=== PATIENT | male | born 1960 | race African-American/Black ===

== ENCOUNTER 2018-05-18 13:55 | Emergency (ER) | payer OTHER ==
[~2018-05-18] VITALS: Ht 185.4 cm; Wt 102.1 kg
[2018-05-18 14:39] LABS: Basophils # (auto) 0 uL; Basophils % (auto) 0.5 % (0.0-2.0); Eosinophils # (auto) 0.1 uL; Eosinophils % (auto) 0.6 % (0.0-7.0); Hematocrit 42.7 % (41.0-53.0); Hemoglobin 14.2 g/dL (13.5-17.5); Lymphocytes # (auto) 2.2 uL; Lymphocytes % (auto) 24.6 % (10.0-50.0); Mean Corpuscular Hemoglobin 29.7 pg (28.0-32.0); Mean Corpuscular Hgb Conc. 33.2 g/dL (32.0-36.0); Mean Corpuscular Volume 89.6 fL (80.0-100.0); Monocytes # (auto) 0.6 uL; Neutrophils # (auto) 5.9 uL; Neutrophils % (auto) 67.3 % (37.0-80.0); Nucleated Red Blood Cells % 0.1 %; Platelet Count (auto) 235 10^3/uL (140-450); Red Blood Cells 4.76 10^6/uL (4.5-5.90); Red Cell Distribution Width 13.8 % (11.8-14.3); White Blood Cell 8.8 10^3/uL (4.4-10.8)
[2018-05-18 15:01] LABS: Alanine Aminotransferase 29 U/L (16-61); Albumin 3.3 g/dL (3.4-5.0); Alkaline Phosphatase 71 U/L (45-117); Anion Gap 3 (5-15); Aspartate Aminotransferase 17 U/L (15-37); BUN/Creatinine Ratio 10.7; Bilirubin, Total 0.4 mg/dL (0.2-1.0); Blood Urea Nitrogen 14 mg/dL (7-18); Calcium 8.4 mg/dL (8.5-10.1); Carbon Dioxide 23 mmol/L (21-32); Chloride 110 mmol/L (98-107); GFR African American 72 mL/min; GFR Non-African American 60 mL/min; Glucose 135 mg/dL (74-106); Magnesium 2.6 mg/dL (1.6-2.6); Potassium 3.9 mmol/L (3.5-5.1); Sodium 136 mmol/L (136-145); Total Protein 7.9 g/dL (6.4-8.2)
[2018-05-18 16:45] VITALS: BP 140/80
== END 2018-05-18 17:00 | disposition home or self-care (01) ==
LOC: ER 13:55
DX: R07.89 Other chest pain (principal); F17.210 Nicotine dependence, cigarettes, uncomplicated; F19.10 Other psychoactive substance abuse, uncomplicated
CPT/HCPCS: 36415; 71045; 80053; 83735; 84484; 85025; 93005

== ENCOUNTER 2020-12-21 07:55 | Emergency (ER) | payer OTHER, MEDICAID ==
[~2020-12-21] VITALS: Ht 185.4 cm; Wt 90.7 kg
[2020-12-21 08:51] LABS: Basophils # (auto) 0 10 ^3/uL (0-0.2); Basophils % (auto) 0.5 % (0.0-2.0); Eosinophils # (auto) 0.1 10 ^3/uL (0-0.8); Eosinophils % (auto) 1.5 % (0.0-7.0); Hematocrit 41.6 % (41.0-53.0); Hemoglobin 13.8 g/dL (13.5-17.5); Lymphocytes # (auto) 1.9 10 ^3/uL (0.4-5.4); Lymphocytes % (auto) 29.8 % (10.0-50.0); Mean Corpuscular Hemoglobin 29.9 pg (28.0-32.0); Mean Corpuscular Hgb Conc. 33.1 g/dL (32.0-36.0); Mean Corpuscular Volume 90.2 fL (80.0-100.0); Monocytes # (auto) 0.5 10 ^3/uL (0-1.3); Monocytes % (auto) 7.8 % (0.0-12.0); Neutrophils # (auto) 3.9 10 ^3/uL (1.6-8.6); Neutrophils % (auto) 60.4 % (37.0-80.0); Nucleated Red Blood Cells % 0.1 %; Platelet Count (auto) 230 10^3/uL (140-450); Red Blood Cells 4.61 10^6/uL (4.5-5.90); Red Cell Distribution Width 13.3 % (11.8-14.3); White Blood Cell 6.4 10^3/uL (4.4-10.8)
[2020-12-21 09:08] LABS: Anion Gap 5 (5-15); Blood Urea Nitrogen 15 mg/dL (7-18); Calcium 8.5 mg/dL (8.5-10.1); Carbon Dioxide 24 mmol/L (21-32); Chloride 112 mmol/L (98-107); Glucose 126 mg/dL (74-106); Potassium 4.4 mmol/L (3.5-5.1); Sodium 141 mmol/L (136-145)
[2020-12-21 09:11] LABS: INR 1.01 (0.9-1.15)
[2020-12-21 09:13] LABS: Alanine Aminotransferase 35 U/L (16-61); Alkaline Phosphatase 76 U/L (45-117); Aspartate Aminotransferase 21 U/L (15-37); BUN/Creatinine Ratio 12.8; Bilirubin, Total 0.5 mg/dL (0.2-1.0); GFR African American 82 mL/min; GFR Non-African American 67 mL/min; Total Protein 6.9 g/dL (6.4-8.2)
[2020-12-21 11:01] LABS: Urine Bacteria NONE SEEN /hpf (None Seen); Urine Blood TRACE /uL (Negative); Urine Specific Gravity 1.015 (1.001-1.035); Urine WBC 1 /hpf (0 - 3)
[2020-12-21] MEDS ORDERED: IOHEXOL 300 MG/ML 100ML BOTTLE IJ ONE (12:09)
[2020-12-21 13:00] VITALS: BP 107/57
== END 2020-12-21 15:38 | disposition home or self-care (01) ==
LOC: ER 07:55
DX: K40.90 Unilateral inguinal hernia, without obstruction or gangrene, not specified as recurrent (principal); K42.9 Umbilical hernia without obstruction or gangrene; M79.89 Other specified soft tissue disorders; F17.210 Nicotine dependence, cigarettes, uncomplicated
CPT/HCPCS: 36415; 71045; 73700; 74177; 80053; 81001; 84484; 85025; 85610; 85730; 93005; 99285; Q9967

== ENCOUNTER 2021-07-18 02:44 | Emergency (ER) | payer OTHER, MEDICAID ==
[~2021-07-18] VITALS: Ht 185.4 cm; Wt 107.0 kg
[2021-07-18 02:50] VITALS: BP 142/94
[2021-07-18 10:47] LABS: Urine Bacteria NONE SEEN /hpf (None Seen); Urine Blood Negative /uL (Negative); Urine Mucus FEW (None Seen); Urine Specific Gravity 1.023 (1.001-1.035); Urine WBC 1 /hpf (0 - 3)
[2021-07-18] MEDS ORDERED: ACETAMINOPHEN 325 MG TAB PO ONE (11:45)
== END 2021-07-18 11:49 | disposition home or self-care (01) ==
LOC: ER 02:44
DX: K40.90 Unilateral inguinal hernia, without obstruction or gangrene, not specified as recurrent (principal); N48.89 Other specified disorders of penis; F17.210 Nicotine dependence, cigarettes, uncomplicated
CPT/HCPCS: 72192; 76870; 81001

== ENCOUNTER 2022-01-26 02:38 | Emergency (ER) | payer OTHER, MEDICAID ==
[~2022-01-26] VITALS: Ht 185.4 cm; Wt 104.3 kg
[2022-01-26 05:39] VITALS: BP 179/90
[2022-01-26 05:45] LABS: Basophils # (auto) 0.1 10 ^3/uL (0-0.2); Eosinophils # (auto) 0.1 10 ^3/uL (0-0.8); Eosinophils % (auto) 1.9 % (0.0-7.0); Hematocrit 41.4 % (41.0-53.0); Hemoglobin 14.2 g/dL (13.5-17.5); Lymphocytes # (auto) 2.2 10 ^3/uL (0.4-5.4); Mean Corpuscular Hemoglobin 30.6 pg (28.0-32.0); Mean Corpuscular Hgb Conc. 34.3 g/dL (32.0-36.0); Mean Corpuscular Volume 89.1 fL (80.0-100.0); Monocytes # (auto) 0.6 10 ^3/uL (0-1.3); Monocytes % (auto) 8.1 % (0.0-12.0); Neutrophils # (auto) 4.1 10 ^3/uL (1.6-8.6); Nucleated Red Blood Cells % 0.1 %; Red Blood Cells 4.65 10^6/uL (4.5-5.90); Red Cell Distribution Width 13.7 % (11.8-14.3); White Blood Cell 7.1 10^3/uL (4.4-10.8)
[2022-01-26 06:25] LABS: Albumin 3.2 g/dL (3.4-5.0); BUN/Creatinine Ratio 12.6; Calcium 9.1 mg/dL (8.5-10.1); Potassium 4.4 mmol/L (3.5-5.1)
[2022-01-26 06:27] LABS: Bilirubin, Total 0.3 mg/dL (0.2-1.0); Total Protein 7.4 g/dL (6.4-8.2)
== END 2022-01-26 07:30 | disposition home or self-care (01) ==
LOC: ER 02:38
DX: K40.90 Unilateral inguinal hernia, without obstruction or gangrene, not specified as recurrent (principal); F17.210 Nicotine dependence, cigarettes, uncomplicated
CPT/HCPCS: 36415; 80053; 85025; 85652

== ENCOUNTER 2022-02-21 03:32 | Emergency (ER) | payer OTHER, MEDICAID ==
[~2022-02-21] VITALS: Ht 185.4 cm; Wt 90.7 kg
[2022-02-21 03:57] VITALS: BP 143/92
== END 2022-02-21 05:04 | disposition left against medical advice (07) ==
LOC: ER 03:32
DX: N50.819 Testicular pain, unspecified (principal); Z53.21 Procedure and treatment not carried out due to patient leaving prior to being seen by health care provider

== ENCOUNTER 2022-02-26 11:35 | Inpatient (IN) | payer OTHER, MEDICAID ==
[~2022-02-26] VITALS: Ht 185.4 cm; Wt 107.0 kg
[2022-02-26] MEDS ORDERED: ONDANSETRON HCL 4 MG/2 ML VIAL IV ONE (12:15)
[2022-02-26] MEDS ORDERED: MORPHINE SULFATE 4 MG/ML SYR/VIAL IV ONE (12:15)
[2022-02-26] MEDS ORDERED: SODIUM CHLORIDE 0.9% 1,000 ML IVB ONE (12:15)
[2022-02-26 13:16] LABS: Basophils # (auto) 0.1 10 ^3/uL (0-0.2); Basophils % (auto) 0.9 % (0.0-2.0); Eosinophils # (auto) 0.2 10 ^3/uL (0-0.8); Eosinophils % (auto) 2.7 % (0.0-7.0); Hematocrit 39.7 % (41.0-53.0); Hemoglobin 13.3 g/dL (13.5-17.5); Lymphocytes # (auto) 1.2 10 ^3/uL (0.4-5.4); Lymphocytes % (auto) 16.9 % (10.0-50.0); Mean Corpuscular Hemoglobin 29.7 pg (28.0-32.0); Mean Corpuscular Hgb Conc. 33.6 g/dL (32.0-36.0); Mean Corpuscular Volume 88.5 fL (80.0-100.0); Monocytes # (auto) 0.5 10 ^3/uL (0-1.3); Monocytes % (auto) 6.5 % (0.0-12.0); Neutrophils # (auto) 5.2 10 ^3/uL (1.6-8.6); Nucleated Red Blood Cells % 0.1 %; Red Blood Cells 4.49 10^6/uL (4.5-5.90); Red Cell Distribution Width 13.5 % (11.8-14.3); White Blood Cell 7.1 10^3/uL (4.4-10.8)
[2022-02-26 13:28] LABS: Partial Thromboplastin Time 26.5 sec (23.6-33.0)
[2022-02-26 13:37] LABS: Albumin 3.1 g/dL (3.4-5.0); Calcium 9.3 mg/dL (8.5-10.1); Potassium 4.6 mmol/L (3.5-5.1)
[2022-02-26 13:42] LABS: BUN/Creatinine Ratio 13.8; Bilirubin, Total 0.6 mg/dL (0.2-1.0); Total Protein 8.7 g/dL (6.4-8.2)
[2022-02-26 15:46] LABS: Urine Bacteria NONE SEEN /hpf (None Seen); Urine Blood Negative /uL (Negative); Urine Budding Yeast OCCASIONAL /hpf (None Seen); Urine Mucus FEW (None Seen); Urine Specific Gravity 1.042 (1.001-1.035); Urine Sperm PRESENT /hpf (None Seen); Urine WBC 20 /hpf (0 - 3)
[2022-02-26] MEDS ORDERED: HYDR-4902 PO (17:06)
[2022-02-26] MEDS ORDERED: cefTRIAXone 1GM/50ML D5W 50 ML IV ONE (20:45)
[2022-02-26] MEDS ORDERED: ONDANSETRON HCL 4 MG/2 ML VIAL IV PRN (20:45)
[2022-02-26] MEDS ORDERED: ACETAMINOPHEN 325 MG TAB PO PRN (20:45)
[2022-02-26] MEDS ORDERED: MORPHINE SULFATE INJ 2 MG/ml SYRG IV PRN (20:45)
[2022-02-27 05:11] LABS: Basophils # (auto) 0.1 10 ^3/uL (0-0.2); Basophils % (auto) 0.8 % (0.0-2.0); Eosinophils # (auto) 0 10 ^3/uL (0-0.8); Eosinophils % (auto) 0.3 % (0.0-7.0); Hematocrit 36.2 % (41.0-53.0); Hemoglobin 12.2 g/dL (13.5-17.5); Lymphocytes # (auto) 0.4 10 ^3/uL (0.4-5.4); Lymphocytes % (auto) 3.9 % (10.0-50.0); Mean Corpuscular Hemoglobin 29.9 pg (28.0-32.0); Mean Corpuscular Hgb Conc. 33.6 g/dL (32.0-36.0); Mean Corpuscular Volume 88.8 fL (80.0-100.0); Monocytes # (auto) 0.4 10 ^3/uL (0-1.3); Monocytes % (auto) 3.6 % (0.0-12.0); Neutrophils # (auto) 10.3 10 ^3/uL (1.6-8.6); Neutrophils % (auto) 91.4 % (37.0-80.0); Nucleated Red Blood Cells % 0.1 %; Red Blood Cells 4.08 10^6/uL (4.5-5.90); Red Cell Distribution Width 13.2 % (11.8-14.3); White Blood Cell 11.3 10^3/uL (4.4-10.8)
[2022-02-27 05:33] LABS: BUN/Creatinine Ratio 12.2; Calcium 8.4 mg/dL (8.5-10.1); Potassium 4.2 mmol/L (3.5-5.1)
[2022-02-27] MEDS: HYDROcodone-ACET 5/325MG TAB PO PRN ×3 (05:51→21:36)
[2022-02-27] MEDS ORDERED: DEXTROSE (50%) 50ML SYRG IV PRN (06:00)
[2022-02-27] MEDS: ACCU-CHEK COMFORT CURVE STRIP VI SCH ×4 (06:17→23:28)
[2022-02-27] MEDS: InsuLIN REG 1unit/0.01ml Soln (100units/ml) SC SCH ×4 (06:22→23:36)
[2022-02-27] MEDS: cefTRIAXone 1GM/50ML D5W 50 ML IV SCH (09:03)
[2022-02-27] MEDS: PANTOPRAZOLE 40 MG TAB PO SCH (09:34)
[2022-02-27] MEDS ORDERED: INSULIN LANTUS (GLARGINE) 1 /0.01ml (100units/ml) SC ONE (13:15)
[2022-02-27] MEDS: SODIUM CHLORIDE 0.9% 1,000 ML IV SCH ×2 (13:32→23:23)
[2022-02-27] MEDS: INSULIN LANTUS (GLARGINE) 1 /0.01ml (100units/ml) SC SCH (22:03)
[2022-02-27 22:50] VITALS: BP 139/73
[2022-02-28] MEDS: TEMAZEPAM 15 MG CAP PO PRN (00:11)
[2022-02-28] MEDS: ACCU-CHEK COMFORT CURVE STRIP VI SCH ×3 (06:09→18:15)
[2022-02-28 06:13] LABS: Basophils # (auto) 0 10 ^3/uL (0-0.2); Basophils % (auto) 0.4 % (0.0-2.0); Eosinophils # (auto) 0.2 10 ^3/uL (0-0.8); Eosinophils % (auto) 2.5 % (0.0-7.0); Hematocrit 36.1 % (41.0-53.0); Hemoglobin 12.1 g/dL (13.5-17.5); Lymphocytes % (auto) 25.4 % (10.0-50.0); Mean Corpuscular Hemoglobin 29.4 pg (28.0-32.0); Mean Corpuscular Hgb Conc. 33.5 g/dL (32.0-36.0); Mean Corpuscular Volume 87.8 fL (80.0-100.0); Monocytes # (auto) 0.6 10 ^3/uL (0-1.3); Monocytes % (auto) 7.4 % (0.0-12.0); Neutrophils % (auto) 64.3 % (37.0-80.0); Red Blood Cells 4.11 10^6/uL (4.5-5.90); Red Cell Distribution Width 13.1 % (11.8-14.3); White Blood Cell 7.8 10^3/uL (4.4-10.8)
[2022-02-28] MEDS: InsuLIN REG 1unit/0.01ml Soln (100units/ml) SC SCH ×3 (06:13→18:08)
[2022-02-28 06:31] LABS: Calcium 8.3 mg/dL (8.5-10.1); Potassium 3.7 mmol/L (3.5-5.1)
[2022-02-28 06:37] LABS: Albumin 2.3 g/dL (3.4-5.0); BUN/Creatinine Ratio 17.5; Bilirubin, Total 0.3 mg/dL (0.2-1.0); Magnesium 2.5 mg/dL (1.6-2.6); Total Protein 7.2 g/dL (6.4-8.2)
[2022-02-28 09:00] VITALS: BP 145/95
[2022-02-28] MEDS: cefTRIAXone 1GM/50ML D5W 50 ML IV SCH (09:00)
[2022-02-28] MEDS: HYDROcodone-ACET 5/325MG TAB PO PRN (11:00)
[2022-02-28 13:00] VITALS: BP 120/69
[2022-02-28] MEDS: PANTOPRAZOLE 40 MG TAB PO SCH (13:50)
[2022-02-28] MEDS: SODIUM CHLORIDE 0.9% 1,000 ML IV SCH ×2 (13:50→20:30)
[2022-02-28 17:00] VITALS: BP 147/88
[2022-02-28 20:00] VITALS: BP 146/86
[2022-02-28] MEDS: INSULIN LANTUS (GLARGINE) 1 /0.01ml (100units/ml) SC SCH (21:54)
[2022-02-28 22:00] VITALS: BP 151/102
[2022-03-01] MEDS: ACCU-CHEK COMFORT CURVE STRIP VI SCH ×2 (00:27→06:09)
[2022-03-01] MEDS: TEMAZEPAM 15 MG CAP PO PRN (00:27)
[2022-03-01] MEDS: InsuLIN REG 1unit/0.01ml Soln (100units/ml) SC SCH ×3 (00:30→13:23)
[2022-03-01 05:00] VITALS: BP 155/96
[2022-03-01] MEDS: SODIUM CHLORIDE 0.9% 1,000 ML IV SCH (05:12)
[2022-03-01 08:00] VITALS: BP 149/96
[2022-03-01 09:00] VITALS: BP 150/96
[2022-03-01] MEDS: cefTRIAXone 1GM/50ML D5W 50 ML IV SCH (09:43)
[2022-03-01] MEDS: PANTOPRAZOLE 40 MG TAB PO SCH (09:43)
[2022-03-01 13:00] VITALS: BP 147/94
[2022-03-01] MEDS ORDERED: HYDR-4798 PO (13:30)
[2022-03-01] MEDS ORDERED: NYST150P2 XX (13:30)
[2022-03-01] MEDS ORDERED: METF-929 PO (13:30)
[2022-03-01 14:21] VITALS: BP 145/68
== END 2022-03-01 16:13 | disposition home or self-care (01) | DRG 394 ==
LOC: ER 11:35 → OVERFLOW 20:44 → WEST WING 02-27 22:18
PROVIDERS: ADMIT Nurse Practitioner; ATTEND Internal Medicine Geriatric Medicine
DX: K40.90 Unilateral inguinal hernia, without obstruction or gangrene, not specified as recurrent (principal); N39.0 Urinary tract infection, site not specified; E44.1 Mild protein-calorie malnutrition; E87.1 Hypo-osmolality and hyponatremia; E11.65 Type 2 diabetes mellitus with hyperglycemia; F17.210 Nicotine dependence, cigarettes, uncomplicated; Z20.822 Contact with and (suspected) exposure to COVID-19; I10 Essential (primary) hypertension; K76.0 Fatty (change of) liver, not elsewhere classified; Z79.84 Long term (current) use of oral hypoglycemic drugs; Z59.00 Homelessness unspecified; Z68.31 Body mass index [BMI] 31.0-31.9, adult
CPT/HCPCS: 36415; 74177; 80048; 80053; 81001; 82150; 82962; 83036; 83690; 83735; 85025; 85610; 85730; 96361; 96365; 96375; G0378; J0696; J1815; J2405

== ENCOUNTER 2023-02-25 16:32 | Emergency (ER) | payer BC, MEDICAID ==
[~2023-02-25 16:32] MED LIST: HYDR-4798 PO; METF-929 PO; NYST150P2 XX
== END 2023-02-25 16:48 | disposition left against medical advice (07) ==
LOC: EDBD 16:32 → ER 16:38
DX: I10 Essential (primary) hypertension (principal); M25.512 Pain in left shoulder; F17.210 Nicotine dependence, cigarettes, uncomplicated

== ENCOUNTER 2023-04-14 08:12 | Emergency (ER) | payer BC, MEDICAID ==
[~2023-04-14] VITALS: Ht 185.4 cm; Wt 114.0 kg
[2023-04-14 08:40] LABS: Basophils # (auto) 0 10 ^3/uL (0-0.2); Basophils % (auto) 0.5 % (0.0-2.0); Eosinophils # (auto) 0.1 10 ^3/uL (0-0.8); Eosinophils % (auto) 1.5 % (0.0-7.0); Hematocrit 42.3 % (41.0-53.0); Lymphocytes # (auto) 2.4 10 ^3/uL (0.4-5.4); Lymphocytes % (auto) 33.7 % (10.0-50.0); Mean Corpuscular Hemoglobin 29.9 pg (28.0-32.0); Mean Corpuscular Hgb Conc. 33.1 g/dL (32.0-36.0); Mean Corpuscular Volume 90.4 fL (80.0-100.0); Monocytes # (auto) 0.5 10 ^3/uL (0-1.3); Monocytes % (auto) 7.7 % (0.0-12.0); Neutrophils % (auto) 56.6 % (37.0-80.0); Nucleated Red Blood Cells % 0.3 %; Red Blood Cells 4.68 10^6/uL (4.5-5.90); Red Cell Distribution Width 13.3 % (11.8-14.3)
[2023-04-14] MEDS ORDERED: KETOROLAC TROMETH 60MG/2ML VIAL IM ONE (09:00)
[2023-04-14] MEDS ORDERED: FUROSEMIDE 40 MG TAB PO ONE (09:00)
[2023-04-14] MEDS ORDERED: cloNIDine HCL 0.1 MG TAB PO ONE (09:00)
[2023-04-14 09:01] LABS: Albumin 3.5 g/dL (3.4-5.0); Potassium 4.2 mmol/L (3.5-5.1)
[2023-04-14 09:11] LABS: BUN/Creatinine Ratio 11.8 (10.0-20.0); Bilirubin, Total 0.4 mg/dL (0.2-1.0)
[2023-04-14 10:47] VITALS: BP 141/94; PULSE 90; RESP 18; TEMP 97.6; O2SAT 96
== END 2023-04-14 10:48 | disposition home or self-care (01) ==
LOC: ER 08:12
DX: R07.9 Chest pain, unspecified (principal); I16.0 Hypertensive urgency; I10 Essential (primary) hypertension; M79.602 Pain in left arm; F17.210 Nicotine dependence, cigarettes, uncomplicated; F12.10 Cannabis abuse, uncomplicated
CPT/HCPCS: 36415; 71045; 80053; 84484; 85025; 93005; 96372; 99285; J1885

== ENCOUNTER 2024-03-17 17:36 | Emergency (ER) | payer MEDICARE, MEDICAID ==
[~2024-03-17] VITALS: Ht 185.4 cm; Wt 106.1 kg
[2024-03-17 17:52] VITALS: BP 128/98; PULSE 103; RESP 17; O2SAT 96
[2024-03-17] MEDS ORDERED: SODIUM CHLORIDE 0.9% 1,000 ML IV ONE ×2 (18:15→20:00)
[2024-03-17 18:51] LABS: Basophils # (auto) 0.1 10 ^3/uL (0-0.2); Basophils % (auto) 0.8 % (0.0-2.0); Eosinophils # (auto) 0.1 10 ^3/uL (0-0.8); Eosinophils % (auto) 0.9 % (0.0-7.0); Hemoglobin 15.4 g/dL (13.5-17.5); Lymphocytes # (auto) 3.4 10 ^3/uL (0.4-5.4); Lymphocytes % (auto) 34.5 % (10.0-50.0); Mean Corpuscular Hemoglobin 29.9 pg (28.0-32.0); Mean Corpuscular Hgb Conc. 33.6 g/dL (32.0-36.0); Mean Corpuscular Volume 89.1 fL (80.0-100.0); Monocytes # (auto) 0.6 10 ^3/uL (0-1.3); Monocytes % (auto) 6.3 % (0.0-12.0); Neutrophils # (auto) 5.7 10 ^3/uL (1.6-8.6); Neutrophils % (auto) 57.5 % (37.0-80.0); Nucleated Red Blood Cells % 0.2 %; Red Blood Cells 5.16 10^6/uL (4.5-5.90); Red Cell Distribution Width 13.3 % (11.8-14.3); White Blood Cell 9.9 10^3/uL (4.4-10.8)
[2024-03-17 18:57] LABS: Chloride 98 mmol/L (98-107); Potassium 4.3 mmol/L (3.5-5.1); Sodium 131 mmol/L (136-145)
[2024-03-17 18:58] LABS: Anion Gap 6 (5-15); Calcium 10.3 mg/dL (8.5-10.1); Carbon Dioxide 27 mmol/L (20-30)
[2024-03-17 19:03] LABS: BUN/Creatinine Ratio 9.9 (10.0-20.0); Blood Urea Nitrogen 13 mg/dL (9-23)
[2024-03-17 19:13] LABS: Urine Bacteria None Seen /hpf (None Seen)
[2024-03-17 19:28] LABS: Glucose 429 mg/dL (74-106)
[2024-03-17 19:42] LABS: Urine Blood Negative /uL (Negative); Urine Clarity Clear (Clear); Urine Color Light-Yellow (Yellow); Urine Protein, UAD Negative (Negative); Urine Specific Gravity 1.037 (1.001-1.035); Urine Urobilinogen Normal (Negative); Urine WBC <1 /hpf (0 - 3)
[2024-03-17] MEDS ORDERED: metFORMIN HYDROCHLORIDE 500 MG TAB PO ONE (20:00)
== END 2024-03-17 20:22 | disposition left against medical advice (07) ==
LOC: ER 17:36
DX: E11.65 Type 2 diabetes mellitus with hyperglycemia (principal); N17.9 Acute kidney failure, unspecified; I10 Essential (primary) hypertension; F17.210 Nicotine dependence, cigarettes, uncomplicated; F12.10 Cannabis abuse, uncomplicated
CPT/HCPCS: 36415; 80048; 81001; 82962; 83036; 85025

== ENCOUNTER 2024-03-18 04:11 | Inpatient (IN) | payer MEDICARE, MEDICAID ==
[2024-03-18] VITALS (8 sets, daily range): BP systolic 126–153; BP diastolic 86–94; PULSE 90–96; RESP 13–20; TEMP 97.4–98.4; O2SAT 92–97
[~2024-03-18] VITALS: Ht 185.4 cm; Wt 107.0 kg
[2024-03-18 05:04] LABS: Basophils # (auto) 0.1 10 ^3/uL (0-0.2); Basophils % (auto) 0.9 % (0.0-2.0); Eosinophils # (auto) 0.1 10 ^3/uL (0-0.8); Eosinophils % (auto) 1.1 % (0.0-7.0); Hematocrit 46.9 % (41.0-53.0); Hemoglobin 15.7 g/dL (13.5-17.5); Lymphocytes # (auto) 2.9 10 ^3/uL (0.4-5.4); Lymphocytes % (auto) 32.9 % (10.0-50.0); Mean Corpuscular Hgb Conc. 33.4 g/dL (32.0-36.0); Mean Corpuscular Volume 89.8 fL (80.0-100.0); Monocytes # (auto) 0.5 10 ^3/uL (0-1.3); Monocytes % (auto) 5.5 % (0.0-12.0); Neutrophils # (auto) 5.3 10 ^3/uL (1.6-8.6); Neutrophils % (auto) 59.6 % (37.0-80.0); Nucleated Red Blood Cells % 0.4 %; Red Blood Cells 5.22 10^6/uL (4.5-5.90); Red Cell Distribution Width 13.5 % (11.8-14.3); White Blood Cell 8.9 10^3/uL (4.4-10.8)
[2024-03-18] MEDS ORDERED: ACETAMINOPHEN 325 MG TAB PO PRN (06:15)
[2024-03-18] MEDS ORDERED: TEMAZEPAM 15 MG CAP PO PRN (06:15)
[2024-03-18] MEDS ORDERED: DEXTROSE (50%) 50ML SYRG IV PRN ×2 (06:15→14:15)
[2024-03-18] MEDS ORDERED: ONDANSETRON HCL 4 MG/2 ML VIAL IV PRN (06:15)
[2024-03-18] MEDS: SODIUM CHLORIDE 0.9% 1,000 ML IV ONE (06:22)
[2024-03-18 06:56] LABS: Chloride 101 mmol/L (98-107); Potassium 4.7 mmol/L (3.5-5.1); Sodium 132 mmol/L (136-145)
[2024-03-18 06:57] LABS: Anion Gap 6 (5-15); Calcium 9.4 mg/dL (8.5-10.1); Carbon Dioxide 25 mmol/L (20-30)
[2024-03-18 07:02] LABS: BUN/Creatinine Ratio 9.8 (10.0-20.0); Blood Urea Nitrogen 13 mg/dL (9-23); Glucose 378 mg/dL (74-106)
[2024-03-18 07:46] LABS: Urine Bacteria None Seen /hpf (None Seen)
[2024-03-18 07:55] LABS: Urine Blood Negative /uL (Negative); Urine Clarity Clear (Clear); Urine Color Light-Yellow (Yellow); Urine Mucus FEW (None Seen); Urine Protein, UAD Negative (Negative); Urine Specific Gravity 1.034 (1.001-1.035); Urine Urobilinogen Normal (Negative); Urine WBC <1 /hpf (0 - 3); Urine pH 5.5 (5.0-9.0)
[2024-03-18] MEDS: ACCU-CHEK COMFORT CURVE STRIP VI SCH ×2 (08:20→17:33)
[2024-03-18] MEDS: InsuLIN REG 1unit/0.01ml Soln (100units/ml) SC SCH ×3 (08:22→20:54)
[2024-03-18 16:57] LABS: Amphetamine Screen, Urine Pos (NEGATIVE); Barbiturate Scree,Urine Neg (NEGATIVE); Benzodiazephine Screen, Urine Neg (NEGATIVE); Cannabinoid Screen, Urine Neg (NEGATIVE); Cocaine Screen, Urine Neg (NEGATIVE); Opiate Scree,Urine Neg (NEGATIVE); Phencyclidine Screen, Urine Pos (NEGATIVE)
[2024-03-18] MEDS: metFORMIN HYDROCHLORIDE 850 MG TAB PO SCH (17:31)
[2024-03-18] MEDS: LISINOPRIL 5 MG TAB PO ONE (17:32)
[2024-03-19] VITALS (7 sets, daily range): BP systolic 110–129; BP diastolic 74–86; PULSE 82–99; RESP 16–20; TEMP 96.9–98.8; O2SAT 95–100
[2024-03-19 07:07] LABS: Alanine Aminotransferase 20 U/L (7-40); Albumin 3.5 g/dL (3.2-4.8); Alkaline Phosphatase 79 U/L (46-116); Anion Gap 6 (5-15); Aspartate Aminotransferase 24 U/L (13-40); BUN/Creatinine Ratio 7.5 (10.0-20.0); Blood Urea Nitrogen 7 mg/dL (9-23); Calcium 9.3 mg/dL (8.5-10.1); Carbon Dioxide 21 mmol/L (20-30); Chloride 105 mmol/L (98-107); Cholesterol 221 mg/dL (< 200); HDL Cholesterol 35 mg/dL (40-59); LDL Cholesterol 158 mg/dL (< 100); Potassium 4.3 mmol/L (3.5-5.1); Sodium 132 mmol/L (136-145); Triglycerides 218 mg/dL (< 150)
[2024-03-19 07:08] LABS: Bilirubin, Total 0.6 mg/dL (0.2-1.0); Total Protein 6.6 g/dL (5.7-8.2)
[2024-03-19 07:13] LABS: Glucose 224 mg/dL (74-106)
[2024-03-19] MEDS: LISINOPRIL 5 MG TAB PO SCH (09:09)
[2024-03-19 09:22] LABS: Basophils # (auto) 0 10 ^3/uL (0-0.2); Basophils % (auto) 0.4 % (0.0-2.0); Eosinophils # (auto) 0.1 10 ^3/uL (0-0.8); Eosinophils % (auto) 1.4 % (0.0-7.0); Hematocrit 47.6 % (41.0-53.0); Hemoglobin 15.7 g/dL (13.5-17.5); Lymphocytes # (auto) 2.6 10 ^3/uL (0.4-5.4); Lymphocytes % (auto) 33.2 % (10.0-50.0); Mean Corpuscular Hemoglobin 30.2 pg (28.0-32.0); Mean Corpuscular Hgb Conc. 33.1 g/dL (32.0-36.0); Mean Corpuscular Volume 91.1 fL (80.0-100.0); Monocytes # (auto) 0.6 10 ^3/uL (0-1.3); Monocytes % (auto) 7.3 % (0.0-12.0); Neutrophils # (auto) 4.6 10 ^3/uL (1.6-8.6); Neutrophils % (auto) 57.7 % (37.0-80.0); Nucleated Red Blood Cells % 0.1 %; Red Blood Cells 5.22 10^6/uL (4.5-5.90); Red Cell Distribution Width 13.3 % (11.8-14.3); White Blood Cell 7.9 10^3/uL (4.4-10.8)
[2024-03-19] MEDS: glipiZIDE 5 MG TAB PO ONE (11:52)
[2024-03-19] MEDS: ATORVASTATIN 20 MG TAB PO SCH (21:25)
[2024-03-20 00:53] VITALS: BP 114/81; PULSE 92; RESP 20; TEMP 98.6; O2SAT 95
[2024-03-20] MEDS: glipiZIDE 5 MG TAB PO SCH (06:23)
[2024-03-20 08:00] VITALS: PULSE 104; RESP 18; O2SAT 94
[2024-03-20 08:29] VITALS: BP 116/76; PULSE 104; RESP 18; TEMP 98.2; O2SAT 94
[2024-03-20 13:00] VITALS: BP 105/69; PULSE 79; RESP 18; TEMP 98.8; O2SAT 96
[2024-03-20 16:57] VITALS: BP 115/73; PULSE 95; RESP 16; TEMP 98.3; O2SAT 100
== END 2024-03-20 19:18 | disposition left against medical advice (07) | DRG 637 ==
LOC: ER 04:11 → OVERFLOW 06:13 → WEST WING 08:35
PROVIDERS: ADMIT Nurse Practitioner; ATTEND Internal Medicine
DX: E11.65 Type 2 diabetes mellitus with hyperglycemia (principal); N17.0 Acute kidney failure with tubular necrosis; I50.32 Chronic diastolic (congestive) heart failure; D84.9 Immunodeficiency, unspecified; F17.210 Nicotine dependence, cigarettes, uncomplicated; Z53.29 Procedure and treatment not carried out because of patient's decision for other reasons; Z20.822 Contact with and (suspected) exposure to COVID-19; I11.0 Hypertensive heart disease with heart failure; E66.9 Obesity, unspecified; Z91.199 Patient's noncompliance with other medical treatment and regimen due to unspecified reason; Z79.899 Other long term (current) drug therapy; Z68.31 Body mass index [BMI] 31.0-31.9, adult
CPT/HCPCS: 36415; 71045; 80048; 80053; 80061; 80307; 81001; 82962; 83036; 84443; 85025; 93306; 96361; 96365; 96372; G0378; J1815

== ENCOUNTER 2024-03-21 08:29 | Inpatient (IN) | payer MEDICARE, MEDICAID ==
[~2024-03-21] VITALS: Ht 185.4 cm; Wt 111.8 kg
[2024-03-21] VITALS (7 sets, daily range): BP systolic 118–124; BP diastolic 75–89; PULSE 71–110; RESP 8–19; TEMP 97.8–98.3; O2SAT 93–98
[2024-03-21] MEDS: SODIUM CHLORIDE 0.9% 1,000 ML IV ONE (10:10)
[2024-03-21 11:01] LABS: Basophils # (auto) 0.1 10 ^3/uL (0-0.2); Basophils % (auto) 0.7 % (0.0-2.0); Eosinophils # (auto) 0.1 10 ^3/uL (0-0.8); Eosinophils % (auto) 0.6 % (0.0-7.0); Hematocrit 44.5 % (41.0-53.0); Hemoglobin 15.1 g/dL (13.5-17.5); Lymphocytes # (auto) 2.2 10 ^3/uL (0.4-5.4); Lymphocytes % (auto) 25.5 % (10.0-50.0); Mean Corpuscular Hemoglobin 30.1 pg (28.0-32.0); Mean Corpuscular Hgb Conc. 33.9 g/dL (32.0-36.0); Mean Corpuscular Volume 88.9 fL (80.0-100.0); Monocytes # (auto) 0.6 10 ^3/uL (0-1.3); Monocytes % (auto) 6.7 % (0.0-12.0); Neutrophils # (auto) 5.8 10 ^3/uL (1.6-8.6); Neutrophils % (auto) 66.5 % (37.0-80.0); Nucleated Red Blood Cells % 0.1 %; Red Cell Distribution Width 13.5 % (11.8-14.3); White Blood Cell 8.8 10^3/uL (4.4-10.8)
[2024-03-21 11:12] LABS: Chloride 104 mmol/L (98-107); Potassium 4.4 mmol/L (3.5-5.1); Sodium 134 mmol/L (136-145)
[2024-03-21 11:13] LABS: Anion Gap 8 (5-15); Calcium 9.8 mg/dL (8.7-10.4); Carbon Dioxide 22 mmol/L (20-30)
[2024-03-21 11:18] LABS: BUN/Creatinine Ratio 10.5 (10.0-20.0); Blood Urea Nitrogen 11 mg/dL (9-23); Glucose 287 mg/dL (74-106)
[2024-03-21] MEDS ORDERED: HYDROcodone-ACET 10/325MG TAB PO PRN (13:45)
[2024-03-21] MEDS ORDERED: ACETAMINOPHEN 325 MG TAB PO PRN (13:45)
[2024-03-21] MEDS: SODIUM CHLORIDE 0.9% 1,000 ML IV SCH (13:45)
[2024-03-21] MEDS ORDERED: ONDANSETRON HCL 4 MG/2 ML VIAL IV PRN (13:45)
[2024-03-21] MEDS ORDERED: DEXTROSE (50%) 50ML SYRG IV PRN (18:15)
[2024-03-21] MEDS: InsuLIN REG 1unit/0.01ml Soln (100units/ml) SC SCH (21:55)
[2024-03-21] MEDS: ACCU-CHEK COMFORT CURVE STRIP VI SCH (21:58)
[2024-03-21] MEDS ORDERED: NYSTATIN XX SCH (22:00)
[2024-03-21] MEDS: ATORVASTATIN 20 MG TAB PO SCH (22:01)
[2024-03-22 05:00] VITALS: BP 120/73; PULSE 92; RESP 18; TEMP 97.7; O2SAT 93
[2024-03-22] MEDS: InsuLIN REG 1unit/0.01ml Soln (100units/ml) SC SCH (05:56)
[2024-03-22 06:30] LABS: Basophils # (auto) 0 10 ^3/uL (0-0.2); Basophils % (auto) 0.5 % (0.0-2.0); Eosinophils # (auto) 0.1 10 ^3/uL (0-0.8); Eosinophils % (auto) 1.8 % (0.0-7.0); Hematocrit 40.2 % (41.0-53.0); Hemoglobin 13.6 g/dL (13.5-17.5); Lymphocytes # (auto) 2.6 10 ^3/uL (0.4-5.4); Lymphocytes % (auto) 40.2 % (10.0-50.0); Mean Corpuscular Hemoglobin 30.4 pg (28.0-32.0); Mean Corpuscular Hgb Conc. 33.9 g/dL (32.0-36.0); Mean Corpuscular Volume 89.8 fL (80.0-100.0); Monocytes # (auto) 0.6 10 ^3/uL (0-1.3); Monocytes % (auto) 8.5 % (0.0-12.0); Neutrophils # (auto) 3.2 10 ^3/uL (1.6-8.6); Nucleated Red Blood Cells % 0.2 %; Red Blood Cells 4.48 10^6/uL (4.5-5.90); Red Cell Distribution Width 13.5 % (11.8-14.3); White Blood Cell 6.5 10^3/uL (4.4-10.8)
[2024-03-22 07:10] LABS: Alanine Aminotransferase 18 U/L (7-40); Albumin 3.3 g/dL (3.2-4.8); Alkaline Phosphatase 72 U/L (46-116); Anion Gap 4 (5-15); Aspartate Aminotransferase 12 U/L (13-40); BUN/Creatinine Ratio 10.2 (10.0-20.0); Bilirubin, Total 0.4 mg/dL (0.2-1.0); Blood Urea Nitrogen 11 mg/dL (9-23); Calcium 9.2 mg/dL (8.7-10.4); Carbon Dioxide 26 mmol/L (20-30); Chloride 104 mmol/L (98-107); Glucose 345 mg/dL (74-106); Potassium 4.4 mmol/L (3.5-5.1); Sodium 134 mmol/L (136-145); Total Protein 5.9 g/dL (5.7-8.2)
[2024-03-22 08:00] VITALS: PULSE 78; RESP 16
[2024-03-22] MEDS: ENOXAPARIN SOD 40 MG/0.4 ML SYRINGE SC SCH (08:55)
[2024-03-22 09:00] VITALS: BP 113/67; PULSE 78; RESP 17; TEMP 98.1; O2SAT 94
[2024-03-22 13:00] VITALS: BP 130/82; PULSE 71; RESP 17; TEMP 98; O2SAT 97
[2024-03-22 17:00] VITALS: BP 125/86; PULSE 86; RESP 18; TEMP 97.8; O2SAT 96
[2024-03-22 21:00] VITALS: BP 139/84; PULSE 95; RESP 20; TEMP 98.6; O2SAT 98
[2024-03-23 01:00] VITALS: BP 133/85; PULSE 95; RESP 18; TEMP 98.3; O2SAT 99
[2024-03-23 05:00] VITALS: BP 124/88; PULSE 87; RESP 18; TEMP 98.4; O2SAT 98
[2024-03-23] MEDS: INSULIN LANTUS (GLARGINE) 1 /0.01ml (100units/ml) SC SCH (06:10)
[2024-03-23 08:34] LABS: Basophils # (auto) 0 10 ^3/uL (0-0.2); Basophils % (auto) 0.4 % (0.0-2.0); Eosinophils # (auto) 0.1 10 ^3/uL (0-0.8); Eosinophils % (auto) 1.3 % (0.0-7.0); Hematocrit 38.9 % (41.0-53.0); Hemoglobin 13.2 g/dL (13.5-17.5); Lymphocytes # (auto) 2.8 10 ^3/uL (0.4-5.4); Lymphocytes % (auto) 39.4 % (10.0-50.0); Mean Corpuscular Hemoglobin 30.1 pg (28.0-32.0); Mean Corpuscular Hgb Conc. 33.8 g/dL (32.0-36.0); Mean Corpuscular Volume 89.1 fL (80.0-100.0); Monocytes # (auto) 0.5 10 ^3/uL (0-1.3); Monocytes % (auto) 7.2 % (0.0-12.0); Neutrophils # (auto) 3.7 10 ^3/uL (1.6-8.6); Neutrophils % (auto) 51.7 % (37.0-80.0); Nucleated Red Blood Cells % 0.1 %; Red Blood Cells 4.37 10^6/uL (4.5-5.90); Red Cell Distribution Width 13.2 % (11.8-14.3); White Blood Cell 7.1 10^3/uL (4.4-10.8)
[2024-03-23 08:44] LABS: Anion Gap 5 (5-15); Carbon Dioxide 24 mmol/L (20-30); Chloride 107 mmol/L (98-107); Potassium 3.9 mmol/L (3.5-5.1); Sodium 136 mmol/L (136-145)
[2024-03-23 08:45] LABS: Calcium 8.8 mg/dL (8.7-10.4)
[2024-03-23 08:49] LABS: Glucose 193 mg/dL (74-106)
[2024-03-23 08:50] LABS: BUN/Creatinine Ratio 9.2 (10.0-20.0); Blood Urea Nitrogen 8 mg/dL (9-23)
[2024-03-23 09:00] VITALS: BP 140/78; PULSE 89; RESP 17; TEMP 98.4; O2SAT 96
[2024-03-23 13:00] VITALS: BP 139/90; PULSE 89; RESP 18; TEMP 98.4; O2SAT 95
[2024-03-23] MEDS ORDERED: LISI20TA56 PO (15:10)
[2024-03-23] MEDS ORDERED: GLIP10TA21 PO (15:10)
[2024-03-23] MEDS ORDERED: METF-371 PO (15:10)
[2024-03-23 15:19] VITALS: BP 139/90; PULSE 89; RESP 18; TEMP 98.4; O2SAT 95
[2024-03-23 17:53] VITALS: BP 116/61; PULSE 64; RESP 18; TEMP 98.4; O2SAT 100
== END 2024-03-23 16:37 | disposition home or self-care (01) | DRG 638 ==
LOC: ER 08:29 → OVERFLOW 13:36 → EAST 15:43
PROVIDERS: ADMIT Nurse Practitioner Family; ATTEND Internal Medicine
DX: E11.65 Type 2 diabetes mellitus with hyperglycemia (principal); I50.32 Chronic diastolic (congestive) heart failure; Z59.00 Homelessness unspecified; E66.01 Morbid (severe) obesity due to excess calories; E78.5 Hyperlipidemia, unspecified; F17.210 Nicotine dependence, cigarettes, uncomplicated; I11.0 Hypertensive heart disease with heart failure; Z91.148 Patient's other noncompliance with medication regimen for other reason; Z79.84 Long term (current) use of oral hypoglycemic drugs; Z79.899 Other long term (current) drug therapy; Z91.199 Patient's noncompliance with other medical treatment and regimen due to unspecified reason; Z68.32 Body mass index [BMI] 32.0-32.9, adult
CPT/HCPCS: 36415; 80048; 80053; 82962; 84484; 85025; 87081; G0378; J1815

== ENCOUNTER 2024-08-13 18:12 | Inpatient (IN) | payer OTHER, MEDICAID ==
[~2024-08-13] VITALS: Ht 182.9 cm; Wt 111.5 kg
[~2024-08-13 18:12] MED LIST changes: +ASPI-325 PO; +ATOR20TA50 PO; +FURO1TAB31 PO; +GLIP10TA21 PO; +LISI-275 PO; +LISI20TA56 PO; +MET25T PO; +METF-371 PO; +POTA-228 PO
[2024-08-13 20:07] LABS: Basophils # (auto) 0.1 10 ^3/uL (0-0.2); Basophils % (auto) 0.8 % (0.0-2.0); Eosinophils # (auto) 0.1 10 ^3/uL (0-0.8); Eosinophils % (auto) 1.1 % (0.0-7.0); Hematocrit 44.4 % (41.0-53.0); Hemoglobin 14.8 g/dL (13.5-17.5); Lymphocytes # (auto) 3.3 10 ^3/uL (0.4-5.4); Lymphocytes % (auto) 36.4 % (10.0-50.0); Mean Corpuscular Hemoglobin 30.3 pg (28.0-32.0); Mean Corpuscular Hgb Conc. 33.3 g/dL (32.0-36.0); Monocytes # (auto) 0.7 10 ^3/uL (0-1.3); Monocytes % (auto) 7.7 % (0.0-12.0); Neutrophils # (auto) 4.9 10 ^3/uL (1.6-8.6); Nucleated Red Blood Cells % 0.4 %; Platelet Count (auto) 237 10^3/uL (140-450); Red Blood Cells 4.88 10^6/uL (4.5-5.90); Red Cell Distribution Width 13.4 % (11.8-14.3); White Blood Cell 9.1 10^3/uL (4.4-10.8)
[2024-08-13 20:20] LABS: Alanine Aminotransferase 30 U/L (7-40); Albumin 4.1 g/dL (3.2-4.8); Anion Gap 10 (5-15); BUN/Creatinine Ratio 11.9 (10.0-20.0); Blood Urea Nitrogen 17 mg/dL (9-23); Calcium 9.8 mg/dL (8.7-10.4); Carbon Dioxide 23 mmol/L (20-31); Potassium 4.4 mmol/L (3.5-5.1)
[2024-08-13 20:21] LABS: Alkaline Phosphatase 122 U/L (46-116); Aspartate Aminotransferase < 8 U/L (13-40); Bilirubin, Total 0.5 mg/dL (0.2-1.0); Chloride 96 mmol/L (98-107); Sodium 129 mmol/L (136-145); Total Protein 7.5 g/dL (5.7-8.2)
[2024-08-13 20:25] LABS: Glucose 678 mg/dL (74-106)
[2024-08-13 20:40] LABS: Urine Bacteria None Seen /hpf (None Seen); Urine WBC None Seen /hpf (0 - 3)
--- NOTE | 2024-08-13 20:41 | ED.PDOC ---
History of Present Illness HPI Comments 63-year-old male who came to ER for urinary issues/chest pain. Patient is homeless. Denies ever being diagnosed with hypertension or diabetes. Review of charts shows prior checkups and admissions due to uncontrolled diabetes. Patient coming in for a urine frequency for over a week. Also complaining of intermittent episodes of left sided chest pains radiating to the left arm. He denies any dysuria or gross hematuria. He denies any acute abdominal pain nausea or vomiting or changes in bowel habits. He reports being very thirsty and urinating frequently. He does have a history of substance abuse Chief Complaint: Urinary Time Seen by MD: 21:17 Primary Care Provider: UNKNOWN Reviewed Notes: Nurses Notes Allergies: Coded Allergies: NO KNOWN ALLERGIES (Unverified , 05/24/11) Home Meds Active Scripts Lisinopril (Lisinopril) 20 Mg Tab, 20 MG PO DAILY for 30 Days, #30 TAB 3 Refills Prov:YVON ROMERO MD 03/23/24 Glipizide (Glipizide Er) 10 Mg Tab, 10 MG PO QAM for 30 Days, #30 TAB 3 Refills Prov:YVON ROMERO MD 03/23/24 Metformin Hydrochloride (Metformin Hcl) 850 Mg Tab, 850 MG PO BID for 30 Days, #60 TAB 3 Refills Prov:YVON ROMERO MD 03/23/24 Potassium Chloride (Potassium Chloride ER) 10 Meq Tab, 10 MEQ PO DAILY, #30 MG Prov:BEVERLEY HOSKINS MD 03/30/23 Furosemide (Lasix) 40 Mg Tab, 40 MG PO DAILY, #30 MG Prov:BEVERLEY HOSKINS MD 03/30/23 Lisinopril (Lisinopril) 5 Mg Tab, 5 MG PO DAILY, #30 MG Prov:BEVERLEY HOSKINS MD 03/30/23 Metoprolol Tartrate (Lopressor) 25 Mg Tb, 25 MG PO BID, #60 TAB Prov:BEVERLEY HOSKINS MD 03/30/23 Atorvastatin Calcium (ATORVASTATIN CALCIUM) 20 Mg Tab, 40 MG PO HS, #30 TAB Prov:BEVERLEY HOSKINS MD 03/30/23 Aspirin (Aspirin Low Dose) 81 Mg Tab, 81 MG PO DAILY, #30 TAB Prov:BEVERLEY HOSKINS MD 03/30/23 Nystatin (Nystatin) 1 Pow Pow, 1 POW XX BID for 15 Days, #30 POW Prov:JOANN CISNEROS MD 03/01/22 Metformin HCl (Metformin Hydrochloride) 1,000 Mg Tab, 1000 MG PO BID, #60 TAB 3 Refills Prov:JOANN CISNEROS MD 03/01/22 Hydrocodone-Acetaminophen (Hydrocodone Bitartrate/AC 10-325 mg) 1 Tab Tab, 1 TAB PO Q6HP PRN, #20 TAB Prov:JOANN CISNEROS MD 03/01/22 Information Source: Patient Mode of Arrival: Ambulatory Severity: Moderate Timing: Days Duration: Intermittent Prehospital treatment: None Medication Refill: For: Other Review of Systems: REVIEW OF SYSTEMS: No fever, no chills, or fatigue HEENT: No sore throat, no earache, no congestion, no neck pain. Cardiac: (+) chest pain. No palpitations. Lungs: No shortness of breath, no cough. GI: No nausea, no vomiting, no diarrhea, no constipation, no abdominal pain : No dysuria,(+) urinary frequency, or urgency. No hematuria. Musculoskeletal: No joint pain , no joint swelling, no extremity edema. Skin: No rash, no itching. Neuro: No headache, no dizziness, no weakness Vital Signs Vital Signs Date Time Temp Pulse Resp B/P (MAP) Pulse Ox O2 Delivery O2 Flow Rate FiO2 08/13/24 21:33 95 15 94 Room Air* 0 21 08/13/24 21:31 98.8 153/110 (124) 98.8 Physical Exam General: Awake, alert and oriented. No acute distress. Skin: Skin in warm, dry and intact. Appropriate color for ethnicity. Nailbeds pink with no cyanosis. HEENT: The head is normocephalic and atraumatic. Conjunctivae are clear without exudates or hemorrhage. Sclera is non-icteric. EOM are intact. No signs of nystagmus. Eyelids are normal in appearance without swelling or lesions. Oral mucosa is pink and moist Neck: The neck is supple with normal range of motion. No JVD. Cardiac: Heart rate and rhythm are normal. No murmurs, gallops, or rubs are auscultated. Respiratory: No signs of respiratory distress. Lung sounds are clear in all lobes bilaterally without rales, ronchi, or wheezes. Abdominal: Abdomen is soft, non-tender without distention. Bowel sounds are present and normoactive in all four quadrants. Extremities: Upper and lower extremities are atraumatic in appearance without deformity or edema. Neurological: The patient is awake, alert and oriented to person, place, and time with normal speech. Speech is clear. There is no facial asymmetry. Psychiatric: Appropriate mood and affect. Good judgement and insight. No visual or auditory hallucinations. Past Medical History PAST MEDICAL HISTORY: DM, HTN Surgical History: Hernia Repair Family History Family History: Reviewed,noncontributory to illness Social History Smoker: Cigarettes, Less Than 1 Pack/Day Alcohol: Occasionally Drugs: Marijuana, Methamphetamine, Other (Phencyclidine) Lives In: Home Was a procedure done? Was a procedure done?: No Differential Dx Considerations may include: Anemia, electrolyte imbalance, hyperglycemia, diabetic ketoacidosis, urinary tract infection, sepsis, substance abuse, homeless X-Ray, Labs, Meds, VS Vital Signs Date Time Temp Pulse Resp B/P (MAP) Pulse Ox O2 Delivery O2 Flow Rate FiO2 08/13/24 21:33 95 15 94 Room Air* 0 21 08/13/24 21:31 98.8 95 15 153/110 (124) 95 98.8 08/13/24 18:42 98.5 115 16 145/92 (109) 96 08/13/24 18:17 15 Lab Test 08/13/24 23:37 08/13/24 22:13 08/13/24 22:06 08/13/24 21:15 Range/Units POC Glucose 235 H 259 H 70-106 mg/dl Blood Gas Specimen Type Arterial Blood Gas Sample Site Right radial Blood Gas Patient Temperature 37.0 Arterial Blood Date Drawn [id number] Arterial Blood pH 7.380 7.350-7.450 Arterial Blood Partial Pressure CO2 34.6 L 35.0-48.0 mmHg Arterial Blood Partial Pressure O2 78.5 L 83.0-108.0 mmHg Arterial Blood HCO3 20.0 L 21.0-28.0 mmol/L Arterial Blood Oxygen Saturation 95.1 94.0-98.0 % Arterial Blood Base Excess -4.3 L -2.0-3.0 mmol/L Arterial Blood Oxyhemoglobin 93.6 L 94.0-98.0 % Arterial Blood Carboxyhemoglobin 1.6 H 0.5-1.5 % Arterial Blood Methemoglobin 0.0 0.0-1.5 % Brayan Test Yes Blood Gas Total Hemoglobin 14.70 13.5-17.5 g/dL Blood Gas Modality Room air FiO2 % 21.0 Troponin I High Sensitivity 4 </=54 ng/L Test 08/13/24 21:07 08/13/24 19:27 08/13/24 18:26 08/13/24 18:15 Range/Units POC Glucose 590 *H 70-106 mg/dl Troponin I High Sensitivity 4 4 </=54 ng/L Urine Color Colorless Yellow Urine Clarity Clear Clear Urine pH 5.0 5.0-9.0 Urine Specific [place] 1.033 1.001-1.035 Urine Protein Negative Negative Urine Ketones Negative Negative Urine Blood Negative Negative /uL Urine Nitrite Negative Negative Urine Bilirubin Negative Negative Urine Urobilinogen Normal Negative mg/dL Urine Leukocyte Esterase Negative Negative /uL Urine RBC 1 0 - 3 /hpf Urine WBC None seen 0 - 3 /hpf Urine Squamous Epithelial Cells Few <5 /hpf Urine Bacteria None seen None Seen /hpf Urine Glucose 4+ H Normal mg/dL Urine Opiates Screen Neg NEGATIVE Urine Fentanyl Screen Neg NEGATIVE Urine Barbiturates Screen Neg NEGATIVE Urine Phencyclidine Screen Pos NEGATIVE Urine Amphetamines Screen Pos NEGATIVE Urine Benzodiazepines Screen Neg NEGATIVE Urine Cocaine Screen Neg NEGATIVE Urine Cannabinoids Screen Neg NEGATIVE White Blood Count 9.1 4.4-10.8 10^3/uL Red Blood Count 4.88 4.5-5.90 10^6/uL Hemoglobin 14.8 13.5-17.5 g/dL Hematocrit 44.4 41.0-53.0 % Mean Corpuscular Volume 91.0 80.0-100.0 fL Mean Corpuscular Hemoglobin 30.3 28.0-32.0 pg Mean Corpuscular Hemoglobin Concent 33.3 32.0-36.0 g/dL Red Cell Distribution Width 13.4 11.8-14.3 % Platelet Count 237 140-450 10^3/uL Mean Platelet Volume 10.4 6.9-10.8 fL Neutrophils (%) (Auto) 54.0 37.0-80.0 % Lymphocytes (%) (Auto) 36.4 10.0-50.0 % Monocytes (%) (Auto) 7.7 0.0-12.0 % Eosinophils (%) (Auto) 1.1 0.0-7.0 % Basophils (%) (Auto) 0.8 0.0-2.0 % Neutrophils # (Auto) 4.9 1.6-8.6 10 ^3/uL Lymphocytes # (Auto) 3.3 0.4-5.4 10 ^3/uL Monocytes # (Auto) 0.7 0-1.3 10 ^3/uL Eosinophils # (Auto) 0.1 0-0.8 10 ^3/uL Basophils # (Auto) 0.1 0-0.2 10 ^3/uL Nucleated Red Blood Cells 0.4 % Sodium Level 129 L 136-145 mmol/L Potassium Level 4.4 3.5-5.1 mmol/L Chloride Level 96 L 98-107 mmol/L Carbon Dioxide Level 23 20-31 mmol/L Anion Gap 10 5-15 Blood Urea Nitrogen 17 9-23 mg/dL Creatinine 1.43 H 0.700-1.30 mg/dL Glomerular Filtration Rate Calc 55 >90 mL/min BUN/Creatinine Ratio 11.9 10.0-20.0 Serum Glucose 678 *H 74-106 mg/dL Calcium Level 9.8 8.7-10.4 mg/dL Total Bilirubin 0.5 0.2-1.0 mg/dL Aspartate Amino Transferase (AST) < 8 L 13-40 U/L Alanine Aminotransferase (ALT) 30 7-40 U/L Alkaline Phosphatase 122 H 46-116 U/L B-Type Natriuretic Peptide 1.95 0-100 pg/mL Total Protein 7.5 5.7-8.2 g/dL Albumin 4.1 3.2-4.8 g/dL Plasma/Serum Blood Alcohol < 3.0 <10 mg/dL Current Medications Medications (Trade) Dose Ordered Sig/Jefry Route Start Time Stop Time Status Last Admin Aspirin 324 mg ONCE ONCE PO 08/13/24 19:45 08/13/24 19:48 DC 08/13/24 21:23 Sodium Chloride 1,000 ml @ 1,000 mls/hr Q1H ONCE IV 08/13/24 20:30 08/13/24 21:29 DC 08/13/24 21:26 Insulin Human Regular (InsuLIN R) 10 units ONCE ONCE IV 08/13/24 20:30 08/13/24 20:31 DC 08/13/24 21:26 Diagnostic Test (Pha) (Accu-Chek Comfort Curve T) 1 strip IQ4HR 08/14/24 00:00 08/14/24 00:07 Insulin Human Regular (InsuLIN R) IQ4HR SC 08/14/24 00:00 08/14/24 00:08 Time of 1ST Reevaluation: 20:29 Reevaluation 1ST: Unchanged Patient Education/Counseling: Diagnosis, Treatment Family Education/Counseling: No Family Present Departure 1 Departure Time of Disposition: 03:53 Impression: Primary Impression: Diabetes mellitus with hyperglycemia Additional Impression: Chest pain Disposition: ADMITTED INPATIENT Condition: Guarded Comments [age] male presents to the emergency department with chest pain, polyuria, polydipsia. Found to be hyperglycemic, no DKA. Fluids, insulin initiated in the ED. Patient admitted for further treatment, evaluation and monitoring. Extensive evaluation was performed in attempts to identify or rule out: (See differential diagnosis section) The following tests were ordered, and results were reviewed by me: (See diagnostic results section) The following test were independently interpreted by me: N/A I reviewed and agreed with the following test results read by other providers: N/A I reviewed the following notes from the pt's past medical encounters: March 2024 for uncontrolled diabetes Additional information was gathered from interviewing the following independent historians: N/A Discussion of management or test interpretation with external physician/other qualified health career services director: N/A Addressed one or more chronic illnesses with severe exacerbation, progression, or side effects of treatment: Diabetes mellitus, an acute or chronic illness that poses a threat to life or bodily function: Hyperglycemia, chest pain Decision regarding hospitalization or escalation of hospital level of care: Risk and benefits of admission for further treatment of patient's condition was considered. Due to patient's current clinical condition, high risk of decline and poor outcome if discharged and need for further inpatient management and monitoring, patient will be admitted to the hospital. Diagnosis or treatment significantly limited by social determinants of health: Homelessness, polysubstance abuse, no current primary care provider Critical Care Note Critical Care Time?: Yes (35 min-critical care time only) Critical care comment: Hyperglycemia Stability Stability form required: No Heart Score Heart Score: Heart Score Response (Comments) Value History N/A 0 EKG N/A 0 Age N/A 0 Risk Factors N/A 0 Troponin N/A 0 Total 0 I personally scribed for BRIGITTE COLLINS MD ([email or web address]) on 08/13/24 at 20:41. Electronically submitted by Nawaf Cardenas ([employer]). I personally scribed for BRIGITTE COLLINS MD ([email or web address]) on 08/13/24 at 21:18. Electronically submitted by Nawaf Cardenas ([employer]). BRIGITTE COLLINS MD Aug 13, 2024 20:41
--- NOTE | 2024-08-13 21:10 | DVH ---
CHEST RADIOGRAPH Indication: CP Technique: Single frontal view of the chest was obtained COMPARISON: XY CHEST PORTABLE on DOS: 03/19/24, XY CHEST PORTABLE on DOS: 04/14/23, CHEST PORTABLE on DO S: 12/21/20 FINDINGS: Lines and Tubes: None Lungs: Clear Pleura: No effusion. No pneumothorax. Cardiomediastinal contours: Tortuous aorta. Bones: Unremarkable IMPRESSION: 1. No acute disease.
[2024-08-13 21:15] LABS: Urine Blood Negative /uL (Negative); Urine Clarity Clear (Clear); Urine Color Colorless (Yellow); Urine Protein, UAD Negative (Negative); Urine Specific Gravity 1.033 (1.001-1.035); Urine Urobilinogen Normal (Negative)
[2024-08-13] MEDS: ASPirin 81 mg TAB PO ONE (21:23)
[2024-08-13 21:25] LABS: Amphetamine Screen, Urine Pos (NEGATIVE); Barbiturate Scree,Urine Neg (NEGATIVE); Benzodiazephine Screen, Urine Neg (NEGATIVE); Cannabinoid Screen, Urine Neg (NEGATIVE); Cocaine Screen, Urine Neg (NEGATIVE); Opiate Scree,Urine Neg (NEGATIVE); Phencyclidine Screen, Urine Pos (NEGATIVE)
[2024-08-13] MEDS: SODIUM CHLORIDE 0.9% 1,000 ML IV ONE (21:26)
[2024-08-13] MEDS: InsuLIN REG 1unit/0.01ml Soln (100units/ml) IV ONE (21:26)
[2024-08-13 21:33] VITALS: PULSE 95; RESP 15; O2SAT 94
[2024-08-13] MEDS ORDERED: DEXTROSE (50%) 50ML SYRG IV PRN ×2 (22:30→23:45)
[2024-08-13] MEDS ORDERED: hydrALAZINE HCL 20 MG/ML VL IV PRN (22:30)
[2024-08-13] MEDS ORDERED: DOCUSATE SOD 100 MG CAP PO PRN (22:30)
[2024-08-13] MEDS ORDERED: HYDROcodone-ACET 5/325MG TAB PO PRN (22:30)
[2024-08-13] MEDS: SODIUM CHLORIDE 0.9% 1,000 ML IV SCH (22:30)
[2024-08-13] MEDS ORDERED: ONDANSETRON HCL 4 MG/2 ML VIAL IV PRN (22:30)
[2024-08-13] MEDS ORDERED: ACETAMINOPHEN 325 MG TAB PO PRN (22:30)
[2024-08-13 22:58] LABS: Base Excess -4.3 mmol/L (-2.0-3.0)
[2024-08-14] VITALS (9 sets, daily range): BP systolic 105–142; BP diastolic 55–100; PULSE 74–108; RESP 12–20; TEMP 97.3–98.1; O2SAT 90–100
[2024-08-14] MEDS ORDERED: ACCU-CHEK COMFORT CURVE STRIP VI SCH
[2024-08-14] MEDS ORDERED: InsuLIN REG 1unit/0.01ml Soln (100units/ml) SC SCH
[2024-08-14] MEDS: ACCU-CHEK COMFORT CURVE STRIP VI SCH ×2 (00:07→17:10)
[2024-08-14] MEDS: InsuLIN REG 1unit/0.01ml Soln (100units/ml) SC SCH ×3 (00:08→21:58)
--- NOTE | 2024-08-14 00:22 | DVHHP2 ---
History of Present Illness Reason for Visit: Diabetes mellitus with hyperglycemia History of Present Illness The patient is a 63-year-old male with past medical history of hypertension, diabetes mellitus, and hyperlipidemia who presented to [facility] ED with complaint of chest pain. Patient reports symptoms progressively get worse with frequency urination, intermittent left-sided chest pain, radiating to the left arm, rating 7/10 numeric scale, getting worse that prompted this visit. Patient was seen and evaluated in the ED, laboratory data shows WBC 9.1, platelets 237, sodium 129, potassium 4.4, BUN 17, creatinine 1.47, glucose 678, anion gap 10, BNP 1.95, troponin 4, blood pressure 145/92, pulse 95, temperature 98.8 F, O2 saturation 94% on room air. Please see medication orders section in the computer. On my assessment, patient denied chest pain at this moment, no headache, no dizziness, no diaphoresis, no shortness of breath, no nausea, no vomiting, no fever, no chills. Patient was admitted for further evaluation and medical management. Past Medical History DM, HTN, HLD Past Surgical History Hernia Repair Family History Reviewed, noncontributory to the management of this case. Past Social History The patient lives at home, smokes cigarettes less than 1 pack per day, drinks alcohol occasionally, uses marijuana, methamphetamine, other (Phencyclidine) Review of Systems Constitutional: Yes: Weakness; No: Fever, Chills, Sweats, Malaise, Other Eyes: No: Pain, Vision change, Conjunctivae inflammation, Eyelid inflammation, Other, Redness ENT: No: Ear pain, Ear discharge, Nose pain, Nose discharge, Nose congestion, Mouth pain, Mouth swelling, Throat pain, Throat swelling, Other Respiratory: No: Cough, Dry, Shortness of breath, SOB with excertion, Wheezing, Hemoptysis, Pleuritic Pain, Sputum, Wheezing, Other Cardiovascular: Chest Pain; No: Palpitations, Orthopnea, Paroxysmal Noc. Dyspnea, Edema, Lt Headedness, Other Gastrointestinal: No: Nausea, Vomiting, Abdominal Pain, Diarrhea, Constipation, Melena, Hematochezia, Other Genitourinary: No Dysuria; Frequency; No Incontinence, No Hematuria, No Retention, No Other Musculoskeletal: No: other, neck pain, shoulder pain, arm pain, back pain, hand pain, leg pain, foot pain Skin: No: Rash, Lesions, Jaundice, Bruising, Other Neurological: No: Weakness, Numbness, Incoordination, Change in speech, Confusion, Seizures, Other Allergies: Coded Allergies: NO KNOWN ALLERGIES (Unverified , 05/24/11) Medications Current Medications Medications Dose Ordered Sig/Jefry Route Start Time Stop Time Status Last Admin Dose Admin Lisinopril 20 mg DAILY PO 08/14/24 10:00 Aspirin 81 mg DAILY PO 08/14/24 10:00 Atorvastatin Calcium 10 mg HS PO 08/14/24 22:00 Hydralazine HCl 10 mg Q6HP PRN IV 08/13/24 22:30 Insulin Glargine 15 units BID@0700,2200 SC 08/14/24 07:00 Sodium Chloride 1,000 ml @ 120 mls/hr Q8H20M IV 08/13/24 22:30 Acetaminophen/ Hydrocodone Bitart 1 tab Q4HP PRN PO 08/13/24 22:30 Ondansetron HCl 4 mg Q4HP PRN IV 08/13/24 22:30 Docusate Sodium 100 mg BIDPRN PRN PO 08/13/24 22:30 Acetaminophen 650 mg Q6HP PRN PO 08/13/24 22:30 Metoprolol Tartrate 25 mg BID PO 08/14/24 10:00 Diagnostic Test (Pha) 1 strip IQ4HR 08/14/24 00:00 08/14/24 00:07 1 STRIP Insulin Human Regular IQ4HR SC 08/14/24 00:00 08/14/24 00:08 4 UNITS Dextrose 50 ml UD PRN IV 08/13/24 23:45 Exam Vital Signs Vital Signs Date Time Temp Pulse Resp B/P (MAP) Pulse Ox O2 Delivery O2 Flow Rate FiO2 08/13/24 21:33 95 15 94 Room Air* 0 21 08/13/24 21:31 98.8 153/110 (124) 98.8 General Appearance: Alert, Oriented X3, Cooperative, No acute distress HEENT: Atraumatic, PERRLA, EOMI, Mucous membr. moist/pink Respiratory: Clear to auscultation, Normal air movement Cardiovascular: Regular rate, Normal S1, Normal S2, No murmurs Abdominal: Normal bowel sounds, Soft, No tenderness, No hepatospenomegaly, No masses Extremities: No clubbing, No cyanosis, No edema, Normal pulses, No tendern ess/swelling Skin: No rashes, No breakdown, No significant lesion Neuro: Normal speech, Normal tone, Sensation intact, Cranial nerves 3-12 NL, Reflexes 2+, Other (Generalized weakness) Psych/Mental Status: Mental status NL, Mood NL Labs/Xrays Labs Test 08/13/24 23:37 08/13/24 22:13 08/13/24 21:15 08/13/24 18:26 Range/Units POC Glucose 235 H 70-106 mg/dl Blood Gas Specimen Type Arterial Blood Gas Sample Site Right radial Blood Gas Patient Temperature 37.0 Arterial Blood Date Drawn [id number] Arterial Blood pH 7.380 7.350-7.450 Arterial Blood Partial Pressure CO2 34.6 L 35.0-48.0 mmHg Arterial Blood Partial Pressure O2 78.5 L 83.0-108.0 mmHg Arterial Blood HCO3 20.0 L 21.0-28.0 mmol/L Arterial Blood Oxygen Saturation 95.1 94.0-98.0 % Arterial Blood Base Excess -4.3 L -2.0-3.0 mmol/L Arterial Blood Oxyhemoglobin 93.6 L 94.0-98.0 % Arterial Blood Carboxyhemoglobin 1.6 H 0.5-1.5 % Arterial Blood Methemoglobin 0.0 0.0-1.5 % Brayan Test Yes Blood Gas Total Hemoglobin 14.70 13.5-17.5 g/dL Blood Gas Modality Room air FiO2 % 21.0 Troponin I High Sensitivity 4 </=54 ng/L Urine Color Colorless Yellow Urine Clarity Clear Clear Urine pH 5.0 5.0-9.0 Urine Specific [place] 1.033 1.001-1.035 Urine Protein Negative Negative Urine Ketones Negative Negative Urine Blood Negative Negative /uL Urine Nitrite Negative Negative Urine Bilirubin Negative Negative Urine Urobilinogen Normal Negative mg/dL Urine Leukocyte Esterase Negative Negative /uL Urine RBC 1 0 - 3 /hpf Urine WBC None seen 0 - 3 /hpf Urine Squamous Epithelial Cells Few <5 /hpf Urine Bacteria None seen None Seen /hpf Urine Glucose 4+ H Normal mg/dL Urine Opiates Screen Neg NEGATIVE Urine Fentanyl Screen Neg NEGATIVE Urine Barbiturates Screen Neg NEGATIVE Urine Phencyclidine Screen Pos NEGATIVE Urine Amphetamines Screen Pos NEGATIVE Urine Benzodiazepines Screen Neg NEGATIVE Urine Cocaine Screen Neg NEGATIVE Urine Cannabinoids Screen Neg NEGATIVE Test 08/13/24 18:15 Range/Units White Blood Count 9.1 4.4-10.8 10^3/uL Red Blood Count 4.88 4.5-5.90 10^6/uL Hemoglobin 14.8 13.5-17.5 g/dL Hematocrit 44.4 41.0-53.0 % Mean Corpuscular Volume 91.0 80.0-100.0 fL Mean Corpuscular Hemoglobin 30.3 28.0-32.0 pg Mean Corpuscular Hemoglobin Concent 33.3 32.0-36.0 g/dL Red Cell Distribution Width 13.4 11.8-14.3 % Platelet Count 237 140-450 10^3/uL Mean Platelet Volume 10.4 6.9-10.8 fL Neutrophils (%) (Auto) 54.0 37.0-80.0 % Lymphocytes (%) (Auto) 36.4 10.0-50.0 % Monocytes (%) (Auto) 7.7 0.0-12.0 % Eosinophils (%) (Auto) 1.1 0.0-7.0 % Basophils (%) (Auto) 0.8 0.0-2.0 % Neutrophils # (Auto) 4.9 1.6-8.6 10 ^3/uL Lymphocytes # (Auto) 3.3 0.4-5.4 10 ^3/uL Monocytes # (Auto) 0.7 0-1.3 10 ^3/uL Eosinophils # (Auto) 0.1 0-0.8 10 ^3/uL Basophils # (Auto) 0.1 0-0.2 10 ^3/uL Nucleated Red Blood Cells 0.4 % Sodium Level 129 L 136-145 mmol/L Potassium Level 4.4 3.5-5.1 mmol/L Chloride Level 96 L 98-107 mmol/L Carbon Dioxide Level 23 20-31 mmol/L Anion Gap 10 5-15 Blood Urea Nitrogen 17 9-23 mg/dL Creatinine 1.43 H 0.700-1.30 mg/dL Glomerular Filtration Rate Calc 55 >90 mL/min BUN/Creatinine Ratio 11.9 10.0-20.0 Serum Glucose 678 *H 74-106 mg/dL Calcium Level 9.8 8.7-10.4 mg/dL Total Bilirubin 0.5 0.2-1.0 mg/dL Aspartate Amino Transferase (AST) < 8 L 13-40 U/L Alanine Aminotransferase (ALT) 30 7-40 U/L Alkaline Phosphatase 122 H 46-116 U/L B-Type Natriuretic Peptide 1.95 0-100 pg/mL Total Protein 7.5 5.7-8.2 g/dL Albumin 4.1 3.2-4.8 g/dL Plasma/Serum Blood Alcohol < 3.0 <10 mg/dL PATIENT: PATRICIA GRIGGS JR ACCT: [id number] UNIT: [id number] : 1960 LOC: ER ROOM / BED: / AGE / SEX: 63 / M ADM STATUS: REG ER SERVICE 44 ORDERING PHYSICIAN: BRIGITTE COLLINS MD PROCEDURE(s): CXR1 - CHEST XRAY 1 VIEW REASON: CP ORDER NUMBER(s): [id number], ACCESSION NUMBER(s): [id number] CHEST RADIOGRAPH Indication: CP Technique: Single frontal view of the chest was obtained COMPARISON: XY CHEST PORTABLE on DOS: 03/19/24, XY CHEST PORTABLE on DOS: 04/14/23, CHEST PORTABLE on DOS: 12/21/20 FINDINGS: Lines and Tubes: None Lungs: Clear Pleura: No effusion. No pneumothorax. Cardiomediastinal contours: Tortuous aorta. Bones: Unremarkable IMPRESSION: 1. No acute disease. Assessment/Plan Assessment/Plan Hyponatremia Acute renal injury Hypertension Diabetes mellitus with hyperglycemia Plan 1. Admit to telemetry unit 2. Breathing treatment 3. Pain control management 4. Management of fluids and electrolytes 5. Consultation for hospitalist 6. Diagnostic tests chest x-ray 7. DVT prophylaxis-on SCDs 8. Repeat labs CBC, CMP, hemoglobin A1c in a.m. 9. Continue with current medical management, Accu-Chek q.4 hours moderate dose 10. Treatment plan discussed with patient and RN. Patient verbalized understanding. Plan discussed with: Patient, Other (RN) My Orders Orders - XAVIER SOLOMON DNP Procedure Category Date Status Time Lisinopril Tablet PHA 08/14/24 In Process (Zestril Tablet) 10:00 Aspirin Tablet PHA 08/14/24 In Process 10:00 Atorvastatin (Lipitor) PHA 08/14/24 In Process 22:00 Hydralazine Injection PHA 08/13/24 In Process (Apresoline Inject 22:30 Insulin Lantus PHA 08/14/24 In Process (Glargine) (Lantus) 07:00 Allergies KEIRY 08/13/24 In Process 22:26 Code Status CODE 08/13/24 Transmitted 22:26 Sodium Chloride 0.9% PHA 08/13/24 In Process 22:30 Oxygen Per Hour RT 08/13/24 Transmitted 22:26 Hydrocodone-Acet PHA 08/13/24 In Process 5/325mg Tab ([place] 22:30 Ondansetron Hcl PHA 08/13/24 In Process (Zofran) 22:30 Docusate Sodium PHA 08/13/24 In Process Capsule (Colace 22:30 Complete Blood Count LAB 08/14/24 Logged 04:00 Comprehensive LAB 08/14/24 Logged Metabolic Panel 04:00 Condition: Serious KEIRY 08/13/24 In Process 22:26 Acetaminophen Tablet PHA 08/13/24 In Process (Tylenol Tablet) 22:30 Bedrest With Bathroom KEIRY 08/13/24 In Process Privileg 22:26 Sequential KEIRY 08/13/24 In Process Compression Device Metoprolol Tartrate PHA 08/14/24 In Process Tablet (Lopressor Ta 10:00 Glucose Blood PHA 08/14/24 In Process (Accu-Chek Comfort 00:00 Insulin R (Human) PHA 08/14/24 In Process (Insulin R) 00:00 Dextrose 50% Syringe PHA 08/13/24 In Process 23:45 Consistent DIET 08/14/24 Verified Carb(Ccho)Diabetes Breakfast Admit ADMIT 08/14/24 Verified 00:20 Nitroglycerin [facility] 08/14/24 Verified Sublingual (Ntrostat 00:30 Morphine Sulfate PHA 08/14/24 Verified Injection 00:30 Notify Of Changes [facility] 08/14/24 Verified From Base 00:20 Transmission Builder For [facility] 08/14/24 Verified 24 Hours 00:20 Emergency Dysrhythmia [facility] 08/14/24 Verified Protocol 00:20 Rhythm Strips Once [facility] 08/14/24 Verified Every Shift 00:20 Oxygen By Nasal RT 08/14/24 Verified Cannula 00:20 Problem List: (1) Hyponatremia (2) Acute renal injury (3) Hypertension (4) Diabetes mellitus with hyperglycemia Date of Service: Aug 14, 2024 Billing Provider: XAVIER SOLOMON DNP Common Visit Codes: [id number] INP/OBS CARE (HIGH) XAVIER SOLOMNO DNP Aug 14, 2024 00:22
[2024-08-14] MEDS ORDERED: NITROGLYCERIN 0.4 MG SL TAB SL PRN (00:30)
[2024-08-14] MEDS ORDERED: MORPHINE SULFATE INJ 2 MG/ml SYRG IV PRN (00:30)
[2024-08-14] MEDS: INSULIN LANTUS (GLARGINE) 1 /0.01ml (100units/ml) SC SCH ×2 (06:40→22:00)
[2024-08-14] MEDS: LISINOPRIL 20 MG TAB PO SCH (09:31)
[2024-08-14] MEDS: ASPirin 81 mg TAB PO SCH (09:32)
[2024-08-14] MEDS: METOPROLOL TARTRATE 25 MG TAB PO SCH (09:32)
[2024-08-14 09:48] LABS: Basophils # (auto) 0 10 ^3/uL (0-0.2); Basophils % (auto) 0.6 % (0.0-2.0); Eosinophils # (auto) 0.2 10 ^3/uL (0-0.8); Eosinophils % (auto) 2.1 % (0.0-7.0); Hematocrit 44.6 % (41.0-53.0); Hemoglobin 14.8 g/dL (13.5-17.5); Lymphocytes # (auto) 2.4 10 ^3/uL (0.4-5.4); Lymphocytes % (auto) 33.5 % (10.0-50.0); Mean Corpuscular Hgb Conc. 33.1 g/dL (32.0-36.0); Mean Corpuscular Volume 90.5 fL (80.0-100.0); Monocytes # (auto) 0.5 10 ^3/uL (0-1.3); Monocytes % (auto) 7.2 % (0.0-12.0); Neutrophils % (auto) 56.6 % (37.0-80.0); Nucleated Red Blood Cells % 0.2 %; Platelet Count (auto) 192 10^3/uL (140-450); Red Blood Cells 4.92 10^6/uL (4.5-5.90); Red Cell Distribution Width 12.8 % (11.8-14.3); White Blood Cell 7.1 10^3/uL (4.4-10.8)
[2024-08-14 10:00] LABS: Alanine Aminotransferase 21 U/L (7-40); Albumin 3.6 g/dL (3.2-4.8); Alkaline Phosphatase 97 U/L (46-116); Anion Gap 4 (5-15); BUN/Creatinine Ratio 11.3 (10.0-20.0); Bilirubin, Total 0.6 mg/dL (0.2-1.0); Blood Urea Nitrogen 13 mg/dL (9-23); Calcium 9.4 mg/dL (8.7-10.4); Carbon Dioxide 29 mmol/L (20-31); Chloride 102 mmol/L (98-107); Potassium 4.4 mmol/L (3.5-5.1); Total Protein 6.8 g/dL (5.7-8.2)
[2024-08-14 10:15] LABS: Aspartate Aminotransferase 12 U/L (13-40); Glucose 331 mg/dL (74-106); Sodium 135 mmol/L (136-145)
--- NOTE | 2024-08-14 12:39 | ECG ---
[facility] Test Date: 2024-08-13 Test Time: 18:17:45 Pat Name: PATRICIA GRIGGS Department: ER Room: 0284T Gender: M Maid Supervisor: TACOS : 1960 Requested By: KORI LAMB Order Number: [id number] Reading MD: Measurements Intervals [place] Rate: 115 P: 45 MD: 97 QRS: 28 QRSD: 94 T: 254 QT: 404 QTc: 559 Interpretive Statements Sinus tachycardia Consider right atrial enlargement Abnormal R-wave progression, early transition Borderline repolarization abnormality Prolonged QT interval Baseline wander in lead(s) II,aVR Please click the below link to view image of tracing.
--- NOTE | 2024-08-14 16:40 | DVHPN2 ---
Subjective 63 year old male with h/o DM, but he says he was not convinced that he was diabetic, came because of polyuria and polydipsia He has uncontrolled diabetes Has LIMA Changes from previous H/P or p: Changes Eyes: No Pain, No Vision change, No Conjunctivae inflammation, No Eyelid inflammation, No Other, No Redness ENT: No Ear pain, No Ear discharge, No Nose pain, No Nose discharge, No Nose congestion, No Mouth pain, No Mouth swelling, No Throat pain, No Throat swelling, No Other Cardiovascular: Chest Pain; No Palpitations, No Orthopnea, No Paroxysmal Noc. Dyspnea, No Edema, No Lt Headedness, No Other Respiratory: No Cough, No Dry, No Shortness of breath, No SOB with excertion, No Wheezing, No Hemoptysis, No Pleuritic Pain, No Sputum, No Other Gastrointestinal: No Nausea, No Vomiting, No Abdominal Pain, No Diarrhea, No Constipation, No Melena, No Hematochezia, No Other Genitourinary: No Dysuria; Frequency; No Incontinence, No Hematuria, No Retention, No Other Musculoskeletal: No other, No neck pain, No shoulder pain, No arm pain, No back pain, No hand pain, No leg pain, No foot pain Skin: No Rash, No Lesions, No Jaundice, No Bruising, No Other Objective Vitals Vital Signs Date Time Temp Pulse Resp B/P (MAP) Pulse Ox O2 Delivery O2 Flow Rate FiO2 08/14/24 12:37 97.8 74 17 105/62 (76) 96 97.8 08/14/24 08:00 Room Air* 0 21 General Appearance: Alert, Oriented X3, Cooperative, No acute distress Lungs: Clear to auscultation, Normal air movement Cardiovascular: Regular rate, Normal S1 Abdomen: Normal bowel sounds, Soft, No tenderness Extremities: No edema Medications Current Medications Medications Dose Ordered Sig/Jefry Route Start Time Stop Time Status Last Admin Dose Admin Lisinopril 20 mg DAILY PO 08/14/24 10:00 08/14/24 09:31 20 MG Aspirin 81 mg DAILY PO 08/14/24 10:00 08/14/24 09:32 81 MG Atorvastatin Calcium 10 mg HS PO 08/14/24 22:00 Hydralazine HCl 10 mg Q6HP PRN IV 08/13/24 22:30 Insulin Glargine 15 units BID@0700,2200 SC 08/14/24 07:00 08/14/24 06:40 15 UNITS Sodium Chloride 1,000 ml @ 120 mls/hr Q8H20M IV 08/13/24 22:30 08/14/24 06:00 120 MLS/HR Acetaminophen/ Hydrocodone Bitart 1 tab Q4HP PRN PO 08/13/24 22:30 Ondansetron HCl 4 mg Q4HP PRN IV 08/13/24 22:30 Docusate Sodium 100 mg BIDPRN PRN PO 08/13/24 22:30 Acetaminophen 650 mg Q6HP PRN PO 08/13/24 22:30 Metoprolol Tartrate 25 mg BID PO 08/14/24 10:00 08/14/24 09:32 25 MG Diagnostic Test (Pha) 1 strip IQ4HR 08/14/24 00:00 08/14/24 12:03 1 STRIP Insulin Human Regular IQ4HR SC 08/14/24 00:00 08/14/24 13:42 8 UNITS Dextrose 50 ml UD PRN IV 08/13/24 23:45 Nitroglycerin 0.4 mg Q5MINP PRN SL 08/14/24 00:30 Morphine Sulfate 2 mg Q30M PRN IV 08/14/24 00:30 Laboratory Results Laboratory Tests 08/14/24 08:58 Chemistry Test 08/13/24 18:15 08/14/24 08:58 Albumin 4.1 g/dL (3.2-4.8) 3.6 g/dL (3.2-4.8) Calcium Level 9.8 mg/dL (8.7-10.4) 9.4 mg/dL (8.7-10.4) Total Protein 7.5 g/dL (5.7-8.2) 6.8 g/dL (5.7-8.2) Cardiac Markers Test 08/13/24 18:15 B-Type Natriuretic Peptide 1.95 pg/mL (0-100) LFT Test 08/13/24 18:15 08/14/24 08:58 Alanine Aminotransferase (ALT) 30 U/L (7-40) 21 U/L (7-40) Alkaline Phosphatase 122 U/L (46-116) H 97 U/L (46-116) Aspartate Amino Transferase (AST) < 8 U/L (13-40) L 12 U/L (13-40) L Total Bilirubin 0.5 mg/dL (0.2-1.0) 0.6 mg/dL (0.2-1.0) Urinalysis Test 08/13/24 18:26 Urine Color Colorless (Yellow) Urine Clarity Clear (Clear) Urine pH 5.0 (5.0-9.0) Urine Specific [place] 1.033 (1.001-1.035) Urine Protein Negative (Negative) Urine Ketones Negative (Negative) Urine Blood Negative /uL (Negative) Urine Nitrite Negative (Negative) Urine Bilirubin Negative (Negative) Urine Urobilinogen Normal mg/dL (Negative) Urine Leukocyte Esterase Negative /uL (Negative) Urine RBC 1 /hpf (0 - 3) Urine WBC None seen /hpf (0 - 3) Urine Squamous Epithelial Cells Few /hpf (<5) Urine Bacteria None seen /hpf (None Seen) Urine Glucose 4+ mg/dL (Normal) H Blood Gas Results Test 08/13/24 22:13 Arterial Blood pH 7.380 (7.350-7.450) FiO2 % 21.0 Assessment/Plan Assessment/Plan Uncontrolled DM, new onset LIMA No DKA HTN Dyslipidemia Hyponatremia PLAN: Increase Lantus to 20 units bid Start Metformin 500 mg bid Continue IV fluids Accuchecks ACHS Continue home meds ASA Lipitor Lisinopril Metoprolol Plan discussed with: Patient My Orders Orders - JOANN CISNEROS MD Procedure Category Date Status Time Insulin Lantus PHA 08/14/24 Transmitted (Glargine) (Lantus) 22:00 Metformin PHA 08/14/24 Transmitted Hydrochloride 18:00 Date of Service: Aug 14, 2024 Billing Provider: JOANN CISNEROS MD Common Visit Codes: NOT BILLABLE JOANN CISNEROS MD Aug 14, 2024 16:40
[2024-08-14] MEDS ORDERED: DEXTROSE (50%) 50ML SYRG IV PRN (16:45)
[2024-08-14] MEDS: metFORMIN HYDROCHLORIDE 500 MG TAB PO SCH (17:21)
[2024-08-14] MEDS: ATORVASTATIN 20 MG TAB PO SCH (21:45)
[2024-08-15] VITALS (9 sets, daily range): BP systolic 107–140; BP diastolic 67–82; PULSE 77–91; RESP 14–20; TEMP 97.9–98.2; O2SAT 90–96
--- NOTE | 2024-08-15 10:20 | DVHPN2 ---
Subjective Blood glucose is still high He says he is homeless He cannot take insulin when he leaves here Changes from previous H/P or p: Changes Eyes: No Pain, No Vision change, No Conjunctivae inflammation, No Eyelid inflammation, No Other, No Redness ENT: No Ear pain, No Ear discharge, No Nose pain, No Nose discharge, No Nose congestion, No Mouth pain, No Mouth swelling, No Throat pain, No Throat swelling, No Other Cardiovascular: Chest Pain; No Palpitations, No Orthopnea, No Paroxysmal Noc. Dyspnea, No Edema, No Lt Headedness, No Other Respiratory: No Cough, No Dry, No Shortness of breath, No SOB with excertion, No Wheezing, No Hemoptysis, No Pleuritic Pain, No Sputum, No Other Gastrointestinal: No Nausea, No Vomiting, No Abdominal Pain, No Diarrhea, No Constipation, No Melena, No Hematochezia, No Other Genitourinary: No Dysuria; Frequency; No Incontinence, No Hematuria, No Retention, No Other Musculoskeletal: No other, No neck pain, No shoulder pain, No arm pain, No back pain, No hand pain, No leg pain, No foot pain Skin: No Rash, No Lesions, No Jaundice, No Bruising, No Other Objective Vitals Vital Signs Date Time Temp Pulse Resp B/P (MAP) Pulse Ox O2 Delivery O2 Flow Rate FiO2 08/15/24 10:17 132/67 08/15/24 10:16 87 08/15/24 09:00 98.0 16 95 98.0 08/15/24 07:30 Room Air* 0 21 Intake/Output Intake and Output 08/15/24 07:00 Intake Total 1636 ml Balance 1636 ml Intake Oral 736 ml IV Total 900 ml # Voids 14 # Bowel Movements 1 General Appearance: Alert, Oriented X3, Cooperative, No acute distress Lungs: Clear to auscultation, Normal air movement Cardiovascular: Regular rate, Normal S1 Abdomen: Normal bowel sounds, Soft, No tenderness Extremities: No edema Medications Current Medications Medications Dose Ordered Sig/Jefry Route Start Time Stop Time Status Last Admin Dose Admin Lisinopril 20 mg DAILY PO 08/14/24 10:00 08/15/24 10:17 20 MG Aspirin 81 mg DAILY PO 08/14/24 10:00 08/15/24 10:15 81 MG Atorvastatin Calcium 10 mg HS PO 08/14/24 22:00 08/14/24 21:45 10 MG Hydralazine HCl 10 mg Q6HP PRN IV 08/13/24 22:30 Sodium Chloride 1,000 ml @ 120 mls/hr Q8H20M IV 08/13/24 22:30 08/15/24 07:50 120 MLS/HR Acetaminophen/ Hydrocodone Bitart 1 tab Q4HP PRN PO 08/13/24 22:30 Ondansetron HCl 4 mg Q4HP PRN IV 08/13/24 22:30 Docusate Sodium 100 mg BIDPRN PRN PO 08/13/24 22:30 Acetaminophen 650 mg Q6HP PRN PO 08/13/24 22:30 Metoprolol Tartrate 25 mg BID PO 08/14/24 10:00 08/15/24 10:16 25 MG Nitroglycerin 0.4 mg Q5MINP PRN SL 08/14/24 00:30 Morphine Sulfate 2 mg Q30M PRN IV 08/14/24 00:30 Insulin Glargine 20 units BID@0700,2200 [place] 08/14/24 22:00 08/15/24 06:02 20 UNITS Diagnostic Test (Pha) 1 strip ACHS 08/14/24 17:00 08/15/24 06:00 1 STRIP Insulin Human Regular HS SC 08/14/24 22:00 08/14/24 21:58 4 UNITS Insulin Human Regular AC SC 08/14/24 17:00 08/15/24 06:04 9 UNITS Dextrose 50 ml UD PRN IV 08/14/24 16:45 Metformin HCl 1,000 mg BIDWM PO 08/15/24 18:00 Laboratory Results Laboratory Tests 08/14/24 08:58 Urinalysis Test 08/13/24 18:26 Urine Color Colorless (Yellow) Urine Clarity Clear (Clear) Urine pH 5.0 (5.0-9.0) Urine Specific [place] 1.033 (1.001-1.035) Urine Protein Negative (Negative) Urine Ketones Negative (Negative) Urine Blood Negative /uL (Negative) Urine Nitrite Negative (Negative) Urine Bilirubin Negative (Negative) Urine Urobilinogen Normal mg/dL (Negative) Urine Leukocyte Esterase Negative /uL (Negative) Urine RBC 1 /hpf (0 - 3) Urine WBC None seen /hpf (0 - 3) Urine Squamous Epithelial Cells Few /hpf (<5) Urine Bacteria None seen /hpf (None Seen) Urine Glucose 4+ mg/dL (Normal) H Assessment/Plan Assessment/Plan Uncontrolled DM, new onset LIMA No DKA HTN Dyslipidemia Hyponatremia PLAN: Increase Lantus to 20 units bid Start Metformin 500 mg bid Continue IV fluids Accuchecks ACHS Continue home meds ASA Lipitor Lisinopril Metoprolol 08/15/24: Maximize PO meds for DM control Taper down the Lantus since he cannot take insulin when he is discharged Homeless: Consult social work supervisor to assist Plan discussed with: Patient My Orders Orders - JOANN CISNEROS MD Procedure Category Date Status Time Insulin Lantus PHA 08/14/24 In Process (Glargine) (Lantus) 22:00 Glucose Blood PHA 08/14/24 In Process (Accu-Chek Comfort 17:00 Insulin R (Human) PHA 08/14/24 In Process (Insulin R) 22:00 Insulin R (Human) PHA 08/14/24 In Process (Insulin R) 17:00 Dextrose 50% Syringe PHA 08/14/24 In Process 16:45 Lipid Panel LAB 08/15/24 Logged 04:00 Thyroid Stimulating LAB 08/15/24 Logged Hormone 04:00 Magnesium LAB 08/15/24 Logged 04:00 Basic Metabolic Panel LAB 08/15/24 Logged 04:00 Hemoglobin A1c LAB 08/15/24 Logged 04:00 Metformin PHA 08/15/24 In Process Hydrochloride 18:00 Glipizide Tablet PHA 08/15/24 Logged (Glucotrol Tablet) 18:00 Glipizide Tablet PHA 08/15/24 Logged (Glucotrol Tablet) 10:30 * Manager User Experience CONS 08/15/24 Transmitted Consult Basic Metabolic Panel LAB 08/16/24 Verified 04:00 Date of Service: Aug 15, 2024 Billing Provider: JOANN CISNEROS MD Common Visit Codes: NOT BILLABLE JOANN CISNEROS MD Aug 15, 2024 10:20
[2024-08-15 11:47] LABS: Chloride 104 mmol/L (98-107); Potassium 4.4 mmol/L (3.5-5.1); Sodium 137 mmol/L (136-145)
[2024-08-15 11:48] LABS: Anion Gap 5 (5-15); Calcium 9.7 mg/dL (8.7-10.4); Carbon Dioxide 28 mmol/L (20-31)
[2024-08-15 11:53] LABS: BUN/Creatinine Ratio 11.5 (10.0-20.0); Blood Urea Nitrogen 12 mg/dL (9-23); Glucose 219 mg/dL (74-106); Magnesium 1.9 mg/dL (1.6-2.6); Triglycerides 275 mg/dL (< 150)
[2024-08-15 11:54] LABS: LDL Cholesterol 153 mg/dL (< 100)
[2024-08-15 11:59] LABS: Cholesterol 219 mg/dL (< 200); HDL Cholesterol 32 mg/dL (40-59)
[2024-08-15] MEDS: glipiZIDE 5 MG TAB PO SCH (18:00)
[2024-08-15] MEDS: metFORMIN HYDROCHLORIDE 500 MG TAB PO SCH (18:09)
[2024-08-15] MEDS: glipiZIDE 5 MG TAB PO ONE (18:14)
[2024-08-16 05:00] VITALS: BP 122/78; PULSE 77; RESP 18; TEMP 98; O2SAT 93
[2024-08-16 07:35] LABS: Anion Gap 5 (5-15); Carbon Dioxide 29 mmol/L (20-31); Chloride 107 mmol/L (98-107); Potassium 4.5 mmol/L (3.5-5.1); Sodium 141 mmol/L (136-145)
[2024-08-16 07:36] LABS: Calcium 9.4 mg/dL (8.7-10.4)
[2024-08-16 07:41] LABS: BUN/Creatinine Ratio 13.8 (10.0-20.0); Blood Urea Nitrogen 13 mg/dL (9-23)
[2024-08-16 07:44] LABS: Glucose 113 mg/dL (74-106)
[2024-08-16 08:00] VITALS: PULSE 63
[2024-08-16 09:00] VITALS: BP 129/80; PULSE 70; RESP 19; TEMP 97.8; O2SAT 96
[2024-08-16 13:00] VITALS: BP 130/91; PULSE 81; RESP 16; TEMP 98; O2SAT 96
[2024-08-16 20:00] VITALS: PULSE 85; PULSE 88; RESP 19; O2SAT 96
--- NOTE | 2024-08-16 21:28 | DVHPN2 ---
Subjective in bed resting Changes from previous H/P or p: No Changes Eyes: No Pain, No Vision change, No Conjunctivae inflammation, No Eyelid inflammation, No Other, No Redness ENT: No Ear pain, No Ear discharge, No Nose pain, No Nose discharge, No Nose congestion, No Mouth pain, No Mouth swelling, No Throat pain, No Throat swelling, No Other Cardiovascular: Chest Pain; No Palpitations, No Orthopnea, No Paroxysmal Noc. Dyspnea, No Edema, No Lt Headedness, No Other Respiratory: No Cough, No Dry, No Shortness of breath, No SOB with excertion, No Wheezing, No Hemoptysis, No Pleuritic Pain, No Sputum, No Other Gastrointestinal: No Nausea, No Vomiting, No Abdominal Pain, No Diarrhea, No Constipation, No Melena, No Hematochezia, No Other Genitourinary: No Dysuria; Frequency; No Incontinence, No Hematuria, No Retention, No Other Musculoskeletal: No other, No neck pain, No shoulder pain, No arm pain, No back pain, No hand pain, No leg pain, No foot pain Skin: No Rash, No Lesions, No Jaundice, No Bruising, No Other Objective Vitals Vital Signs Date Time Temp Pulse Resp B/P (MAP) Pulse Ox O2 Delivery O2 Flow Rate FiO2 08/16/24 13:00 98.0 81 16 130/91 (104) 96 98.0 08/16/24 07:30 Room Air* 0 21 Intake/Output Intake and Output 08/16/24 05:00 Intake Total 2540 ml Output Total 1400 ml Balance 1140 ml Intake Oral 540 ml IV Total 2000 ml Output Urine Total 1400 ml General Appearance: Alert, Oriented X3, Cooperative, No acute distress Lungs: Clear to auscultation, Normal air movement Cardiovascular: Regular rate, Normal S1 Abdomen: Normal bowel sounds, Soft, No tenderness Extremities: No edema Medications Current Medications Medications Dose Ordered Sig/Jefry Route Start Time Stop Time Status Last Admin Dose Admin Lisinopril 20 mg DAILY PO 08/14/24 10:00 08/16/24 09:29 20 MG Aspirin 81 mg DAILY PO 08/14/24 10:00 08/16/24 09:29 81 MG Atorvastatin Calcium 10 mg HS PO 08/14/24 22:00 08/15/24 22:36 10 MG Hydralazine HCl 10 mg Q6HP PRN IV 08/13/24 22:30 Acetaminophen/ Hydrocodone Bitart 1 tab Q4HP PRN PO 08/13/24 22:30 Ondansetron HCl 4 mg Q4HP PRN IV 08/13/24 22:30 Docusate Sodium 100 mg BIDPRN PRN PO 08/13/24 22:30 Acetaminophen 650 mg Q6HP PRN PO 08/13/24 22:30 Metoprolol Tartrate 25 mg BID PO 08/14/24 10:00 08/16/24 09:30 25 MG Nitroglycerin 0.4 mg Q5MINP PRN SL 08/14/24 00:30 Morphine Sulfate 2 mg Q30M PRN IV 08/14/24 00:30 Diagnostic Test (Pha) 1 strip ACHS 08/14/24 17:00 08/16/24 17:00 1 STRIP Insulin Human Regular HS SC 08/14/24 22:00 08/14/24 21:58 4 UNITS Insulin Human Regular AC SC 08/14/24 17:00 08/15/24 17:01 6 UNITS Dextrose 50 ml UD PRN IV 08/14/24 16:45 Metformin HCl 1,000 mg BIDWM PO 08/15/24 18:00 08/16/24 17:49 1,000 MG Glipizide 5 mg IBID PO 08/15/24 18:00 08/16/24 17:50 5 MG Insulin Glargine 10 units BID@0700,2200 SC 08/16/24 22:00 Laboratory Results Laboratory Tests 08/14/24 08:58 08/16/24 05:34 Chemistry Test 08/16/24 05:34 Calcium Level 9.4 mg/dL (8.7-10.4) Urinalysis Test 08/13/24 18:26 Urine Color Colorless (Yellow) Urine Clarity Clear (Clear) Urine pH 5.0 (5.0-9.0) Urine Specific [place] 1.033 (1.001-1.035) Urine Protein Negative (Negative) Urine Ketones Negative (Negative) Urine Blood Negative /uL (Negative) Urine Nitrite Negative (Negative) Urine Bilirubin Negative (Negative) Urine Urobilinogen Normal mg/dL (Negative) Urine Leukocyte Esterase Negative /uL (Negative) Urine RBC 1 /hpf (0 - 3) Urine WBC None seen /hpf (0 - 3) Urine Squamous Epithelial Cells Few /hpf (<5) Urine Bacteria None seen /hpf (None Seen) Urine Glucose 4+ mg/dL (Normal) H Assessment/Plan Assessment/Plan Uncontrolled DM, new onset LIMA No DKA HTN Dyslipidemia Hyponatremia PLAN: Increase Lantus to 20 units bid Start Metformin 500 mg bid Continue IV fluids Accuchecks ACHS Continue home meds ASA Lipitor Lisinopril Metoprolol 08/15/24: Maximize PO meds for DM control Taper down the Lantus since he cannot take insulin when he is discharged Homeless: Consult licensed social worker to assist 08/16 no changes Plan discussed with: Patient Date of Service: Aug 16, 2024 Billing Provider: ALEX RICHMOND MD Common Visit Codes: [id number] INP/OBS CARE(HIGH) ALEX RICHMOND MD Aug 16, 2024 21:28
[2024-08-16 22:00] VITALS: BP 130/72; PULSE 85; RESP 19; TEMP 98.1; O2SAT 96
[2024-08-16] MEDS: INSULIN LANTUS (GLARGINE) 1 /0.01ml (100units/ml) SC SCH (22:00)
[2024-08-17 01:00] VITALS: BP 137/92; PULSE 77; RESP 18; TEMP 98.4; O2SAT 99
[2024-08-17 05:00] VITALS: BP 138/89; PULSE 73; RESP 18; TEMP 98; O2SAT 93
[2024-08-17 08:00] VITALS: PULSE 78
[2024-08-17] MEDS ORDERED: GLIP5TAB21 PO (08:56)
[2024-08-17] MEDS ORDERED: METF-929 PO (08:56)
[2024-08-17] MEDS ORDERED: METO25TA93 PO (08:56)
[2024-08-17] MEDS ORDERED: BLOO1KIT60 XX (08:56)
[2024-08-17] MEDS ORDERED: ATOR20TA PO (08:56)
[2024-08-17] MEDS ORDERED: LISI20TA56 PO (08:56)
[2024-08-17 09:00] VITALS: BP 142/97; PULSE 73; RESP 18; TEMP 98; O2SAT 92
--- NOTE | 2024-08-17 09:00 | DVHDS2 ---
Discharge Summary Date of Admission Aug 14, 2024 at 00:22 Date of Discharge: Aug 17, 2024 Labs/Diagnostic Data: Laboratory Results Test 08/16/24 16:51 08/16/24 05:34 08/15/24 10:54 08/14/24 08:58 POC Glucose 156 mg/dl (70-106) Sodium Level 141 mmol/L (136-145) Potassium Level 4.5 mmol/L (3.5-5.1) Chloride Level 107 mmol/L (98-107) Carbon Dioxide Level 29 mmol/L (20-31) Anion Gap 5 (5-15) Blood Urea Nitrogen 13 mg/dL (9-23) Creatinine 0.94 mg/dL (0.700-1.30) Glomerular Filtration Rate Calc 91 mL/min (>90) BUN/Creatinine Ratio 13.8 (10.0-20.0) Serum Glucose 113 mg/dL (74-106) Calcium Level 9.4 mg/dL (8.7-10.4) Hemoglobin A1c 13.4 % A1C (<5.7) Magnesium Level 1.9 mg/dL (1.6-2.6) Triglycerides Level 275 mg/dL (< 150) Cholesterol Level 219 mg/dL (< 200) LDL Cholesterol 153 mg/dL (< 100) HDL Cholesterol 32 mg/dL (40-59) Thyroid Stimulating Hormone (TSH) 0.62 uIU/mL (0.55-4.78) White Blood Count 7.1 10^3/uL (4.4-10.8) Red Blood Count 4.92 10^6/uL (4.5-5.90) Hemoglobin 14.8 g/dL (13.5-17.5) Hematocrit 44.6 % (41.0-53.0) Mean Corpuscular Volume 90.5 fL (80.0-100.0) Mean Corpuscular Hemoglobin 30.0 pg (28.0-32.0) Mean Corpuscular Hemoglobin Concent 33.1 g/dL (32.0-36.0) Red Cell Distribution Width 12.8 % (11.8-14.3) Platelet Count 192 10^3/uL (140-450) Mean Platelet Volume 9.9 fL (6.9-10.8) Neutrophils (%) (Auto) 56.6 % (37.0-80.0) Lymphocytes (%) (Auto) 33.5 % (10.0-50.0) Monocytes (%) (Auto) 7.2 % (0.0-12.0) Eosinophils (%) (Auto) 2.1 % (0.0-7.0) Basophils (%) (Auto) 0.6 % (0.0-2.0) Neutrophils # (Auto) 4.0 10 ^3/uL (1.6-8.6) Lymphocytes # (Auto) 2.4 10 ^3/uL (0.4-5.4) Monocytes # (Auto) 0.5 10 ^3/uL (0-1.3) Eosinophils # (Auto) 0.2 10 ^3/uL (0-0.8) Basophils # (Auto) 0 10 ^3/uL (0-0.2) Nucleated Red Blood Cells 0.2 % Total Bilirubin 0.6 mg/dL (0.2-1.0) Aspartate Amino Transferase (AST) 12 U/L (13-40) Alanine Aminotransferase (ALT) 21 U/L (7-40) Alkaline Phosphatase 97 U/L (46-116) Total Protein 6.8 g/dL (5.7-8.2) Albumin 3.6 g/dL (3.2-4.8) Test 08/13/24 22:13 08/13/24 21:15 08/13/24 18:26 08/13/24 18:15 Blood Gas Specimen Type Arterial Blood Gas Sample Site Right radial Blood Gas Patient Temperature 37.0 Arterial Blood Date Drawn [id number] Arterial Blood pH 7.380 (7.350-7.450) Arterial Blood Partial Pressure CO2 34.6 mmHg (35.0-48.0) Arterial Blood Partial Pressure O2 78.5 mmHg (83.0-108.0) Arterial Blood HCO3 20.0 mmol/L (21.0-28.0) Arterial Blood Oxygen Saturation 95.1 % (94.0-98.0) Arterial Blood Base Excess -4.3 mmol/L (-2.0-3.0) Arterial Blood Oxyhemoglobin 93.6 % (94.0-98.0) Arterial Blood Carboxyhemoglobin 1.6 % (0.5-1.5) Arterial Blood Methemoglobin 0.0 % (0.0-1.5) Brayan Test Yes Blood Gas Total Hemoglobin 14.70 g/dL (13.5-17.5) Blood Gas Modality Room air FiO2 % 21.0 Troponin I High Sensitivity 4 ng/L (</=54) Urine Color Colorless (Yellow) Urine Clarity Clear (Clear) Urine pH 5.0 (5.0-9.0) Urine Specific [place] 1.033 (1.001-1.035) Urine Protein Negative (Negative) Urine Ketones Negative (Negative) Urine Blood Negative /uL (Negative) Urine Nitrite Negative (Negative) Urine Bilirubin Negative (Negative) Urine Urobilinogen Normal mg/dL (Negative) Urine Leukocyte Esterase Negative /uL (Negative) Urine RBC 1 /hpf (0 - 3) Urine WBC None seen /hpf (0 - 3) Urine Squamous Epithelial Cells Few /hpf (<5) Urine Bacteria None seen /hpf (None Seen) Urine Glucose 4+ mg/dL (Normal) Urine Opiates Screen Neg (NEGATIVE) Urine Fentanyl Screen Neg (NEGATIVE) Urine Barbiturates Screen Neg (NEGATIVE) Urine Phencyclidine Screen Pos (NEGATIVE) Urine Amphetamines Screen Pos (NEGATIVE) Urine Benzodiazepines Screen Neg (NEGATIVE) Urine Cocaine Screen Neg (NEGATIVE) Urine Cannabinoids Screen Neg (NEGATIVE) B-Type Natriuretic Peptide 1.95 pg/mL (0-100) Plasma/Serum Blood Alcohol < 3.0 mg/dL (<10) Other Laboratory Tests 08/16/24 05:34 08/14/24 08:58 Brief Hx & Hospital Course: Final diagnoses: Uncontrolled DM, new onset LIMA No DKA HTN Dyslipidemia Hyponatremia 63-year-old male was admitted due to hyperglycemia, blood glucose was above 500 A1c here was 13.4 He was not taking his medications Has tried metformin and glipizide before but he has stopped taking it because he was not convinced he is diabetic He came here because of polydipsia and polyuria and very high blood glucose levels He was restarted on sliding scale regular insulin and was given Lantus however he refused to take Lantus He only wanted to take pills so he was started on metformin and glipizide Blood glucose now is better in the range of 120-180 Last night it was 156 He is asymptomatic and therefore he will be discharged home on metformin 1000 mg twice a day and glipizide 5 mg twice a day and Lipitor 20 mg daily and metoprolol succinate 25 mg daily He will be also prescribed a glucometer Condition at Discharge: Stable Final Diagnosis/Problems List Uncontrolled DM, new onset LIMA No DKA HTN Dyslipidemia Hyponatremia Discharge Disposition: Home SNF Discharge Will this Physician continue t: No Discharge Instruct/Medications Diet: Consistent carbohydrate, Cardiac 2g Na,low cholest Activity: No Restrictions, As Tolerated Follow Up/Referral: PCP as soon as possible Medications: Metformin 1000 mg twice a day Glipizide 5 mg b.i.d. Lipitor 20 mg daily Discharge Statement: "Patient was advised to return to the ER or call 911 if any headaches, dizziness, shortness of breath, chest pain, abdominal pain, bleeding, fevers, or worsening of medical condition. Patient was counseled about treatment plan, medications, possible side effects, patientverbalized understanding. All questions were answered to the best of my ability. This discharge took greater then 30 minutes in planning, reviewing documentation, counseling the patient, and discussing with other team members." ASSESSMENT ASSESSMENT Assessment Uncontrolled DM, new onset LIMA No DKA HTN Dyslipidemia Hyponatremia Date of Service: Aug 17, 2024 Billing Provider: JOANN CISNEROS MD Common Visit Codes: NOT BILLABLE JOANN CISNEROS MD Aug 17, 2024 09:00
== END 2024-08-17 12:20 | disposition home or self-care (01) | DRG 638 ==
LOC: ER 18:12 → TELE 08-14 00:22 → TELE-WESTW 08-14 04:38
PROVIDERS: ADMIT Nurse Practitioner Family; ATTEND Internal Medicine Geriatric Medicine
DX: E11.65 Type 2 diabetes mellitus with hyperglycemia (principal); N17.9 Acute kidney failure, unspecified; Z59.00 Homelessness unspecified; E78.5 Hyperlipidemia, unspecified; I10 Essential (primary) hypertension; F17.210 Nicotine dependence, cigarettes, uncomplicated; Z79.899 Other long term (current) drug therapy; Z79.84 Long term (current) use of oral hypoglycemic drugs
CPT/HCPCS: 36415; 36600; 71045; 80048; 80053; 80061; 80307; 80320; 81001; 82805; 82962; 83036; 83735; 83880; 84443; 84484; 85025; 99291; G0378; J1815

== ENCOUNTER 2024-10-05 09:43 | Inpatient (IN) | payer OTHER, MEDICAID ==
[~2024-10-05] VITALS: Ht 182.9 cm; Wt 99.4 kg
[~2024-10-05 09:43] MED LIST changes: +ATOR20TA PO; +BLOO1KIT60 XX; -GLIP10TA21 PO; +GLIP5TAB21 PO; -LISI-275 PO; -METF-371 PO; +METO25TA93 PO
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
[2024-10-05 10:43] LABS: Basophils # (auto) 0.1 10 ^3/uL (0-0.2); Basophils % (auto) 0.8 % (0.0-2.0); Eosinophils # (auto) 0 10 ^3/uL (0-0.8); Eosinophils % (auto) 0.5 % (0.0-7.0); Hemoglobin 15.7 g/dL (13.5-17.5); Lymphocytes # (auto) 2.5 10 ^3/uL (0.4-5.4); Lymphocytes % (auto) 30.9 % (10.0-50.0); Mean Corpuscular Hemoglobin 29.9 pg (28.0-32.0); Mean Corpuscular Hgb Conc. 33.3 g/dL (32.0-36.0); Mean Corpuscular Volume 89.8 fL (80.0-100.0); Monocytes # (auto) 0.6 10 ^3/uL (0-1.3); Monocytes % (auto) 7.9 % (0.0-12.0); Neutrophils # (auto) 4.9 10 ^3/uL (1.6-8.6); Neutrophils % (auto) 59.9 % (37.0-80.0); Nucleated Red Blood Cells % 0.1 %; Platelet Count (auto) 244 10^3/uL (140-450); Red Blood Cells 5.24 10^6/uL (4.5-5.90); Red Cell Distribution Width 13.3 % (11.8-14.3); White Blood Cell 8.2 10^3/uL (4.4-10.8)
--- NOTE | 2024-10-05 10:44 | DVH ---
CLINICAL INDICATION: PAIN, SWELLING S/P HUMAN BITE TECHNIQUE: 2 radiographic views of the right hand were obtained. Comparison: None FINDINGS/IMPRESSION: There is no evidence of acute fracture or dislocation. The visualized joint space is well maintained. The alignment is anatomical. There is no radiopaque foreign body.
[2024-10-05] MEDS: CLINDAMYCIN 600MG IV 50 ML IV ONE (10:52)
--- NOTE | 2024-10-05 10:58 | DVH ---
CLINICAL INDICATION: LEFT ARM PAIN S/P ALTERCATION TECHNIQUE: 4 radiographic views of the left humerus were obtained. Comparison: None FINDINGS/IMPRESSION: There is no evidence of acute fracture or dislocation. Severe osteoarthrosis of the left glenohumeral joint.
[2024-10-05 11:05] LABS: Anion Gap 6 (5-15); Bilirubin, Total 0.8 mg/dL (0.2-1.0); Carbon Dioxide 29 mmol/L (20-31); Chloride 100 mmol/L (98-107); Potassium 4.8 mmol/L (3.5-5.1)
[2024-10-05 11:09] LABS: Albumin 4.9 g/dL (3.2-4.8); Calcium 10.8 mg/dL (8.7-10.4); Glucose 384 mg/dL (74-106); Sodium 135 mmol/L (136-145)
[2024-10-05] MEDS: SODIUM CHLORIDE 0.9% 1,000 ML IV ONE (11:18)
[2024-10-05 11:25] LABS: Blood Urea Nitrogen 8 mg/dL (9-23)
[2024-10-05 11:26] LABS: Alanine Aminotransferase 19 U/L (7-40); Alkaline Phosphatase 120 U/L (46-116); Aspartate Aminotransferase < 8 U/L (13-40); Total Protein 8.6 g/dL (5.7-8.2)
[2024-10-05] MEDS: InsuLIN REG 1unit/0.01ml Soln (100units/ml) IV ONE (11:28)
[2024-10-05 13:00] VITALS: PULSE 88; RESP 16; O2SAT 93
[2024-10-05] MEDS ORDERED: ACETAMINOPHEN 325 MG TAB PO PRN (13:30)
[2024-10-05] MEDS ORDERED: ONDANSETRON HCL 4 MG/2 ML VIAL IV PRN (13:30)
[2024-10-05] MEDS ORDERED: HYDROcodone-ACET 5/325MG TAB PO PRN (13:30)
[2024-10-05] MEDS ORDERED: DEXTROSE (50%) 50ML SYRG IV PRN (13:30)
[2024-10-05] MEDS ORDERED: DOCUSATE SOD 100 MG CAP PO PRN (13:30)
[2024-10-05] MEDS: VANCOMYCIN 1GM/250ML KIT 250 ML IV ONE (13:58)
[2024-10-05] MEDS ORDERED: hydrALAZINE HCL 20 MG/ML VL IV PRN (14:00)
[2024-10-05] MEDS: CLINDAMYCIN 600MG IV 50 ML IV SCH (14:00)
--- NOTE | 2024-10-05 14:04 | DVHHP2 ---
History of Present Illness Reason for Visit: Infection of hand due to bite History of Present Illness The patient is a 63-year-old male with past medical history of DM and hypertension who presented to [facility] ED for evaluation of index finger open wound associated with increased pain and swelling. Patient was seen and evaluated in the ED, laboratory data shows WBC 8.2, platelets 244, sodium 135, potassium 4.8, BUN eight, creatinine 1.14, GFR 72, glucose 384, protein 8.6, albumin 4.9, calcium 10.8. Patient was started on IV antibiotic regimen clindamycin, please see medication orders section in the computer. On my assessment, patient denied chest pain, no headache, no dizziness, no diaphoresis, no nausea, no vomiting, no fever, no chills. Patient was admitted for further evaluation medical management. Past Medical History DM, HTN Past Surgical History Hernia Repair Family History Reviewed, noncontributory to the management of this case. Past Social History The patient lives at home, smokes cigarettes less than 1 pack per day, drinks alcohol occasionally, uses marijuana and methamphetamine. Review of Systems Constitutional: No: Fever, Chills, Sweats, Weakness, Malaise, Other Eyes: No: Pain, Vision change, Conjunctivae inflammation, Eyelid inflammation, Other, Redness ENT: No: Ear pain, Ear discharge, Nose pain, Nose discharge, Nose congestion, Mouth pain, Mouth swelling, Throat pain, Throat swelling, Other Respiratory: No: Cough, Dry, Shortness of breath, SOB with excertion, Wheezing, Hemoptysis, Pleuritic Pain, Sputum, Wheezing, Other Cardiovascular: No: Chest Pain, Palpitations, Orthopnea, Paroxysmal Noc. Dyspnea, Edema, Lt Headedness, Other Gastrointestinal: No: Nausea, Vomiting, Abdominal Pain, Diarrhea, Constipation, Melena, Hematochezia, Other Genitourinary: No Dysuria, No Frequency, No Incontinence, No Hematuria, No Retention, No Other Musculoskeletal: other (Right index finger pain); No: neck pain, shoulder pain, arm pain, back pain, hand pain, leg pain, foot pain Skin: Other (Right index finger open wound); No: Rash, Lesions, Jaundice, Bruising Neurological: No: Weakness, Numbness, Incoordination, Change in speech, Confusion, Seizures, Other Allergies: Coded Allergies: NO KNOWN ALLERGIES (Unverified , 05/24/11) Medications Current Medications Medications Dose Ordered Sig/Jefry Route Start Time Stop Time Status Last Admin Dose Admin Aspirin 81 mg DAILY PO 10/06/24 10:00 Atorvastatin Calcium 20 mg HS PO 10/05/24 22:00 Clindamycin Phosphate 50 ml @ 50 mls/hr Q8HR IV 10/05/24 14:00 Diagnostic Test (Pha) 1 strip IQ4HR 10/05/24 16:00 Insulin Human Regular IQ4HR SC 10/05/24 16:00 Dextrose 50 ml UD PRN IV 10/05/24 13:30 Sodium Chloride 1,000 ml @ 60 mls/hr [id number] IV 10/05/24 13:30 Acetaminophen/ Hydrocodone Bitart 1 tab Q4HP PRN PO 10/05/24 13:30 Ondansetron HCl 4 mg Q4HP PRN IV 10/05/24 13:30 Docusate Sodium 100 mg BIDPRN PRN PO 10/05/24 13:30 Acetaminophen 650 mg Q6HP PRN PO 10/05/24 13:30 Hydralazine HCl 10 mg Q6HP PRN IV 10/05/24 14:00 Exam Vital Signs Vital Signs Date Time Temp Pulse Resp B/P (MAP) Pulse Ox O2 Delivery O2 Flow Rate FiO2 10/05/24 12:00 100 16 140/91 (107) 100 10/05/24 10:21 98.1 98.1 10/05/24 10:20 Room Air* 0 21 General Appearance: Alert, Oriented X3, Cooperative, No acute distress HEENT: Atraumatic, PERRLA, EOMI, Mucous membr. moist/pink Respiratory: Clear to auscultation, Normal air movement Cardiovascular: Regular rate, Normal S1, Normal S2, No murmurs Abdominal: Normal bowel sounds, Soft, No tenderness, No hepatospenomegaly, No masses Extremities: No clubbing, No cyanosis, No edema, Normal pulses, No tenderness/swelling Skin: No rashes, No breakdown, No significant lesion Neuro: Normal gait, Normal speech, Strength at 5/5 X4 ext, Normal tone, Sensation intact, Cranial nerves 3-12 NL, Reflexes 2+ Psych/Mental Status: Mental status NL, Mood NL Labs/Xrays Labs Test 10/05/24 10:20 Range/Units White Blood Count 8.2 4.4-10.8 10^3/uL Red Blood Count 5.24 4.5-5.90 10^6/uL Hemoglobin 15.7 13.5-17.5 g/dL Hematocrit 47.0 41.0-53.0 % Mean Corpuscular Volume 89.8 80.0-100.0 fL Mean Corpuscular Hemoglobin 29.9 28.0-32.0 pg Mean Corpuscular Hemoglobin Concent 33.3 32.0-36.0 g/dL Red Cell Distribution Width 13.3 11.8-14.3 % Platelet Count 244 140-450 10^3/uL Mean Platelet Volume 9.5 6.9-10.8 fL Neutrophils (%) (Auto) 59.9 37.0-80.0 % Lymphocytes (%) (Auto) 30.9 10.0-50.0 % Monocytes (%) (Auto) 7.9 0.0-12.0 % Eosinophils (%) (Auto) 0.5 0.0-7.0 % Basophils (%) (Auto) 0.8 0.0-2.0 % Neutrophils # (Auto) 4.9 1.6-8.6 10 ^3/uL Lymphocytes # (Auto) 2.5 0.4-5.4 10 ^3/uL Monocytes # (Auto) 0.6 0-1.3 10 ^3/uL Eosinophils # (Auto) 0 0-0.8 10 ^3/uL Basophils # (Auto) 0.1 0-0.2 10 ^3/uL Nucleated Red Blood Cells 0.1 % Sodium Level 135 L 136-145 mmol/L Potassium Level 4.8 3.5-5.1 mmol/L Chloride Level 100 98-107 mmol/L Carbon Dioxide Level 29 20-31 mmol/L Anion Gap 6 5-15 Blood Urea Nitrogen 8 L 9-23 mg/dL Creatinine 1.14 0.700-1.30 mg/dL Glomerular Filtration Rate Calc 72 >90 mL/min BUN/Creatinine Ratio 7.0 L 10.0-20.0 Serum Glucose 384 H 74-106 mg/dL Lactic Acid Level 1.8 0.4-2.0 mmol/L Calcium Level 10.8 H 8.7-10.4 mg/dL Total Bilirubin 0.8 0.2-1.0 mg/dL Aspartate Amino Transferase (AST) < 8 L 13-40 U/L Alanine Aminotransferase (ALT) 19 7-40 U/L Alkaline Phosphatase 120 H 46-116 U/L Total Protein 8.6 H 5.7-8.2 g/dL Albumin 4.9 H 3.2-4.8 g/dL PATIENT: PATRICIA GRIGGS JR ACCT: [id number] UNIT: [id number] : 1960 LOC: ER ROOM / BED: / AGE / SEX: 63 / M ADM STATUS: REG ER SERVICE 1002 ORDERING PHYSICIAN: MONA KELLEY MD PROCEDURE(s): RHAN - R HAND 3 VIEW XRAY REASON: PAIN, SWELLING S/P HUMAN BITE ORDER NUMBER(s): [id number], ACCESSION NUMBER(s): [id number] CLINICAL INDICATION: PAIN, SWELLING S/P HUMAN BITE TECHNIQUE: 2 radiographic views of the right hand were obtained. Comparison: None FINDINGS/IMPRESSION: There is no evidence of acute fracture or dislocation. The visualized joint space is well maintained. The alignment is anatomical. There is no radiopaque foreign body. ORDERING PHYSICIAN: MONA KELLEY MD PROCEDURE(s): LHUM - L HUMERUS XRAY REASON: LEFT ARM PAIN S/P ALTERCATION ORDER NUMBER(s): [id number], ACCESSION NUMBER(s): [id number] CLINICAL INDICATION: LEFT ARM PAIN S/P ALTERCATION TECHNIQUE: 4 radiographic views of the left humerus were obtained. Comparison: None FINDINGS/IMPRESSION: There is no evidence of acute fracture or dislocation. Severe osteoarthrosis of the left glenohumeral joint. Assessment/Plan Assessment/Plan Infection of hand due to bite Cellulitis of right hand Diabetes mellitus with hyperglycemia Plan 1. Admit to med surge unit 2. Breathing treatment 3. Pain control management 4. IV antibiotic management 5. Management of fluids and electrolytes 6. Consultation for hospital/wound care 7. Diagnostic test right hand x-ray 8. DVT prophylaxis-on SCDs 9. Repeat labs CBC, CMP in a.m. 10. Home medication reviewed and reconciled 11. Continue with current medical management 12. Treatment plan discussed with patient and RN. Patient verbalized understvladimir lee. Plan discussed with: Patient, Other (RN) My Orders Orders - XAVIER SOLOMON DNP Procedure Category Date Status Time Aspirin Tablet PHA 10/06/24 In Process 10:00 Atorvastatin (Lipitor) PHA 10/05/24 In Process 22:00 Clindamycin 600mg Iv PHA 10/05/24 In Process (Cleocin Iv) 14:00 Glucose Blood PHA 10/05/24 In Process (Accu-Chek Comfort 16:00 Insulin R (Human) PHA 10/05/24 In Process (Insulin R) 16:00 Dextrose 50% Syringe PHA 10/05/24 In Process 13:30 Allergies KEIRY 10/05/24 In Process 13:29 Code Status CODE 10/05/24 Transmitted 13:29 Sodium Chloride 0.9% PHA 10/05/24 In Process 13:30 Oxygen Per Hour RT 10/05/24 Transmitted 13:29 Hydrocodone-Acet PHA 10/05/24 In Process 5/325mg Tab ([place] 13:30 Ondansetron Hcl PHA 10/05/24 In Process (Zofran) 13:30 Docusate Sodium PHA 10/05/24 In Process Capsule (Colace 13:30 Complete Blood Count LAB 10/06/24 Verified 04:00 Comprehensive LAB 10/06/24 Verified Metabolic Panel 04:00 Condition: Serious KEIRY 10/05/24 In Process 13:29 Acetaminophen Tablet PHA 10/05/24 In Process (Tylenol Tablet) 13:30 Bedrest With Bathroom KEIRY 10/05/24 In Process Privileg 13:29 Sequential KEIRY 10/05/24 In Process Compression Device Hydralazine Injection PHA 10/05/24 Logged (Apresoline Inject 14:00 Admit ADMIT 10/05/24 Verified 14:03 Nitroglycerin PHA 10/05/24 Verified Sublingual (Ntrostat 14:15 Problem List: (1) Infection of hand due to bite (2) Cellulitis of right hand (3) Diabetes mellitus with hyperglycemia Date of Service: Oct 05, 2024 Billing Provider: XAVIER SOLOMON DNP Common Visit Codes: [id number] INP/OBS CARE (HIGH) XAVIER SOLOMON DNP Oct 05, 2024 14:04
[2024-10-05] MEDS: SODIUM CHLORIDE 0.9% 1,000 ML IV SCH (14:07)
[2024-10-05] MEDS ORDERED: MORPHINE SULFATE INJ 2 MG/ml SYRG IV PRN (14:15)
[2024-10-05] MEDS ORDERED: NITROGLYCERIN 0.4 MG SL TAB SL PRN (14:15)
[2024-10-05 15:54] VITALS: BP 142/97; PULSE 95; PULSE 99; RESP 16; RESP 18; TEMP 98; O2SAT 100; O2SAT 93
[2024-10-05] MEDS ORDERED: InsuLIN REG 1unit/0.01ml Soln (100units/ml) SC SCH (16:00)
[2024-10-05] MEDS: ACCU-CHEK COMFORT CURVE STRIP VI SCH (16:23)
[2024-10-05 16:54] VITALS: BP 142/97; PULSE 95; RESP 18; TEMP 98; O2SAT 100
[2024-10-05] MEDS ORDERED: ATORVASTATIN 20 MG TAB PO SCH (22:00)
[2024-10-06] MEDS ORDERED: ASPirin 81 mg TAB PO SCH (10:00)
== END 2024-10-05 19:00 | disposition left against medical advice (07) | DRG 603 ==
LOC: ER 09:43 → OVERFLOW 14:03 → WEST WING 16:16
PROVIDERS: ADMIT Nurse Practitioner Family; ATTEND Nurse Practitioner Family
DX: L03.113 Cellulitis of right upper limb (principal); E11.65 Type 2 diabetes mellitus with hyperglycemia; I10 Essential (primary) hypertension; F17.210 Nicotine dependence, cigarettes, uncomplicated; Z53.29 Procedure and treatment not carried out because of patient's decision for other reasons; Z79.82 Long term (current) use of aspirin; Z79.84 Long term (current) use of oral hypoglycemic drugs; Z79.899 Other long term (current) drug therapy
CPT/HCPCS: 36415; 73060; 73130; 80053; 82962; 83605; 85025; 87040; 99291; G0378; J1815; J3490

== ENCOUNTER 2024-10-26 08:08 | Emergency (ER) | payer OTHER, MEDICAID ==
[~2024-10-26] VITALS: Ht 185.4 cm; Wt 101.9 kg
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
[2024-10-26 09:23] VITALS: PULSE 119; RESP 16; O2SAT 97
[2024-10-26] MEDS: SODIUM CHLORIDE 0.9% 1,000 ML IV ONE (09:27)
[2024-10-26] MEDS: PIPERACILLIN-TAZOB 3.375GM 100 ML IV ONE (09:37)
[2024-10-26] MEDS: InsuLIN REG 1unit/0.01ml Soln (100units/ml) IV ONE (10:17)
[2024-10-26 10:57] LABS: Basophils # (auto) 0 10 ^3/uL (0-0.2); Basophils % (auto) 0.3 % (0.0-2.0); Eosinophils # (auto) 0.1 10 ^3/uL (0-0.8); Eosinophils % (auto) 0.9 % (0.0-7.0); Hematocrit 41.9 % (41.0-53.0); Hemoglobin 13.8 g/dL (13.5-17.5); Lymphocytes # (auto) 2.4 10 ^3/uL (0.4-5.4); Lymphocytes % (auto) 33.7 % (10.0-50.0); Mean Corpuscular Volume 87.9 fL (80.0-100.0); Monocytes # (auto) 0.6 10 ^3/uL (0-1.3); Monocytes % (auto) 8.1 % (0.0-12.0); Neutrophils # (auto) 4.1 10 ^3/uL (1.6-8.6); Nucleated Red Blood Cells % 0.4 %; Platelet Count (auto) 283 10^3/uL (140-450); Red Blood Cells 4.77 10^6/uL (4.5-5.90); Red Cell Distribution Width 13.2 % (11.8-14.3); White Blood Cell 7.2 10^3/uL (4.4-10.8)
[2024-10-26 11:30] VITALS: TEMP 98.1
[2024-10-26 12:30] LABS: BUN/Creatinine Ratio 20.7 (10.0-20.0)
[2024-10-26 12:33] LABS: Anion Gap 12 (5-15); Blood Urea Nitrogen 25 mg/dL (9-23); Calcium 10.1 mg/dL (8.7-10.4); Carbon Dioxide 21 mmol/L (20-31); Chloride 100 mmol/L (98-107); Glucose 364 mg/dL (74-106); Potassium 4.1 mmol/L (3.5-5.1); Sodium 133 mmol/L (136-145)
[2024-10-26] MEDS ORDERED: HYDR-4902 PO (13:06)
[2024-10-26] MEDS ORDERED: DOXY1CAP57 PO (13:06)
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
[2024-10-26] MEDS: HYDROcodone-ACET 5/325MG TAB PO ONE (14:03)
[2024-10-26 14:15] VITALS: BP 114/74; PULSE 111; RESP 18; O2SAT 92
[2024-10-26] MEDS: InsuLIN REG 1unit/0.01ml Soln (100units/ml) SC ONE (15:16)
== END 2024-10-26 15:32 | disposition home or self-care (01) ==
LOC: ER 08:08
DX: L03.113 Cellulitis of right upper limb (principal); E11.65 Type 2 diabetes mellitus with hyperglycemia; I10 Essential (primary) hypertension; F17.210 Nicotine dependence, cigarettes, uncomplicated; F12.90 Cannabis use, unspecified, uncomplicated; F15.90 Other stimulant use, unspecified, uncomplicated; Z98.890 Other specified postprocedural states; Z79.899 Other long term (current) drug therapy; Z79.84 Long term (current) use of oral hypoglycemic drugs
CPT/HCPCS: 36415; 80048; 82962; 85025; 96365; 96372; 96375

== ENCOUNTER 2024-10-31 06:32 | Emergency (ER) | payer OTHER, MEDICAID ==
[~2024-10-31] VITALS: Ht 185.4 cm; Wt 95.4 kg
[~2024-10-31 06:32] MED LIST changes: +DOXY1CAP57 PO; +HYDR-4902 PO
[2024-10-31 08:07] VITALS: BP 142/100; PULSE 90; RESP 16; TEMP 97.9; O2SAT 96
--- NOTE | 2024-10-31 08:14 | ED.PDOC ---
HPI Comments 63 year old male presents to the ED with a chief complaint of chest pain onset today (10/31/2024). Patient states he is experiencing substernal chest pain, radiates to bilateral arms, LT arm tingling. Patient describes chest pain as a sharp pain, rates 10/10. He also states he has been under stress recently and noticed it makes pain worse. PMHx HTN, DM, CHF, HLD. Denies headache, blurry vision, nausea, vomiting, diarrhea. No other symptoms or modifying factors present at this time. Chief Complaint: Chest Pain Time Seen by MD: 08:05 Primary Care Provider: NONE Reviewed Notes: Medications, Allergies Allergies: Coded Allergies: NO KNOWN ALLERGIES (Unverified , 05/24/11) Home Meds Active Scripts Doxycycline Monohydrate (Doxycycline Monohydrate) 100 Mg Cap, 1 CAP PO BID, #20 CAP Prov:JOANN CISNEROS MD 10/26/24 Hydrocodone-Acetaminophen (Hydrocodone Bitartrate/AC 5-325 mg) 1 Tab Tab, 1 TAB PO Q6HP PRN, #15 TAB Prov:JOANN CISNEROS MD 10/26/24 Blood Glucose Monitoring Suppl (D-Care Glucometer Kit/Glu W/Device) 1 Kit Kit, KIT XX, #1 Prov:JOANN CISNEROS MD 08/17/24 Atorvastatin Calcium (Lipitor) 20 Mg Tab, 1 TAB PO DAILY, #90 TAB 1 Refill Prov:JOANN CISNEROS MD 08/17/24 Metoprolol Succinate (Metoprolol Succinate Er) 25 Mg Tab, 1 TAB PO DAILY, #30 TAB 5 Refills Prov:JOANN CISNEROS MD 08/17/24 Lisinopril (Lisinopril) 20 Mg Tab, 1 TAB PO DAILY, #30 TAB 5 Refills Prov:JOANN CISNEROS MD 08/17/24 Glipizide (Glipizide) 5 Mg Tab, 1 TAB PO BID for 30 Days, #60 TAB 3 Refills Prov:JOANN CISNEROS MD 08/17/24 Metformin HCl (Metformin Hydrochloride) 1,000 Mg Tab, 1000 MG PO BID for 30 Days, #60 TAB 2 Refills Prov:JOANN CISNEROS MD 08/17/24 Lisinopril (Lisinopril) 20 Mg Tab, 20 MG PO DAILY for 30 Days, #30 TAB 3 Refills Prov:YVON ROMERO MD 03/23/24 Potassium Chloride (Potassium Chloride ER) 10 Meq Tab, 10 MEQ PO DAILY, #30 MG Prov:BEVERLEY HOSKINS MD 03/30/23 Furosemide (Lasix) 40 Mg Tab, 40 MG PO DAILY, #30 MG Prov:BEVERLEY HOSKINS MD 03/30/23 Metoprolol Tartrate (Lopressor) 25 Mg Tb, 25 MG PO BID, #60 TAB Prov:BEVERLEY HOSKINS MD 03/30/23 Atorvastatin Calcium (ATORVASTATIN CALCIUM) 20 Mg Tab, 40 MG PO HS, #30 TAB Prov:BEVERLEY HOSKINS MD 03/30/23 Aspirin (Aspirin Low Dose) 81 Mg Tab, 81 MG PO DAILY, #30 TAB Prov:BEVERLEY HOSKINS MD 03/30/23 Nystatin (Nystatin) 1 Pow Pow, 1 POW XX BID for 15 Days, #30 POW Prov:JOANN CISNREOS MD 03/01/22 Metformin HCl (Metformin Hydrochloride) 1,000 Mg Tab, 1000 MG PO BID, #60 TAB 3 Refills Prov:JOANN CISNEROS MD 03/01/22 Hydrocodone-Acetaminophen (Hydrocodone Bitartrate/AC 10-325 mg) 1 Tab Tab, 1 TAB PO Q6HP PRN, #20 TAB Prov:JOANN CISNEROS MD 03/01/22 Information Source: Patient Mode of Arrival: Ambulatory Severity: Moderate Timing: Hours Duration: Since onset Prehospital treatment: None Location: Substernal Radiation: Arm (R), Arm (L) Quality: Sharp Onset: At Rest Cardiac Risk Factors: Smoker, Hyperlipidemia, HTN, Diabetes, Drugs Modifying Factors: Nothing Associated Signs and Symptoms: Other (bilateral arm pain) Past Medical History PAST MEDICAL HISTORY: CKF, DM, High Lipids, HTN Surgical History: Hernia Repair Family History Family History: Reviewed,noncontributory to illness Social History Smoker: Cigarettes, Less Than 1 Pack/Day Alcohol: Occasionally Drugs: Marijuana, Methamphetamine, Other Lives In: Home Cardiovascular: reports: chest pain Neurological: reports: tingling (LT arm) Musculoskeletal: reports: others (bilateral arm pain) Physical Exam General Appearance: No Apparent Distress, Normal HEENT: Normal ENT Inspection, Pharynx Normal, TMs Normal Neck: Full Range of Motion, Non-Tender, Normal, Normal Inspection Respiratory: Chest Non-Tender, Lungs Clear, No Accessory Muscle Use, No Respiratory Distress, Normal Breath Sounds Cardiovascular: No Edema, No JVD, No Murmur, No Gallop, Normal Peripheral Pulses, Regular Rate/Rhythm Breast Exam: Deferred Gastrointestinal: No Organomegaly, Non Tender, No Pulsatile Mass, Normal Bowel Sounds, Soft Genitalia: Deferred Pelvic: Deferred Rectal: Deferred Extremities: No calf tenderness, Normal capillary refill, Normal inspection, Normal range of motion, Non-tender, No pedal edema Musculoskeletal : Apperance: Normal Neurologic: Alert, oil and gas specialist II-XII nml as Tested, No Motor Deficits, Normal Affect, Normal Mood, No Sensory Deficits Cerebellar Function: Normal Reflexes: Normal Skin: Dry, Normal Color, Warm Lymphatic: No Adenopathy Was a procedure done? Was a procedure done?: No CP Differential Dx Differential Diagnosis: A-fib, A-Flutter, Angina, Anxiety / Panic Attack, Electrolyte Disorder, Heart Failure, OR, PVC's, Renal Failure Differential Diagnosis: CHF, HTN Essential Differential Diagnosis: Angina, Chest Wall Pain, Costochondritis, Esophageal reflux/spasm, Myocardial Infarction, Pneumonia X-Ray, Labs, Meds, VS Vital Signs Date Time Temp Pulse Resp B/P (MAP) Pulse Ox O2 Delivery O2 Flow Rate FiO2 10/31/24 08:08 Room Air* 0 21 10/31/24 08:07 97.9 90 16 142/100 (114) 96 97.9 10/31/24 07:36 79 10/31/24 06:38 95 10/31/24 06:35 97.8 95 18 148/95 (112) 100 Lab Test 10/31/24 09:42 10/31/24 07:39 10/31/24 06:42 10/31/24 06:34 Range/Units White Blood Count 7.4 4.4-10.8 10^3/uL Red Blood Count 4.71 4.5-5.90 10^6/uL Hemoglobin 13.8 13.5-17.5 g/dL Hematocrit 42.1 41.0-53.0 % Mean Corpuscular Volume 89.3 80.0-100.0 fL Mean Corpuscular Hemoglobin 29.3 28.0-32.0 pg Mean Corpuscular Hemoglobin Concent 32.8 32.0-36.0 g/dL Red Cell Distribution Width 13.2 11.8-14.3 % Platelet Count 259 140-450 10^3/uL Mean Platelet Volume 9.2 6.9-10.8 fL Neutrophils (%) (Auto) 63.1 37.0-80.0 % Lymphocytes (%) (Auto) 29.1 10.0-50.0 % Monocytes (%) (Auto) 6.6 0.0-12.0 % Eosinophils (%) (Auto) 0.8 0.0-7.0 % Basophils (%) (Auto) 0.4 0.0-2.0 % Neutrophils # (Auto) 4.7 1.6-8.6 10 ^3/uL Lymphocytes # (Auto) 2.2 0.4-5.4 10 ^3/uL Monocytes # (Auto) 0.5 0-1.3 10 ^3/uL Eosinophils # (Auto) 0.1 0-0.8 10 ^3/uL Basophils # (Auto) 0 0-0.2 10 ^3/uL Nucleated Red Blood Cells 0.1 % Sodium Level 135 L 136-145 mmol/L Potassium Level 4.5 3.5-5.1 mmol/L Chloride Level 107 98-107 mmol/L Carbon Dioxide Level 20 20-31 mmol/L Anion Gap 8 5-15 Blood Urea Nitrogen 11 9-23 mg/dL Creatinine 0.94 0.700-1.30 mg/dL Glomerular Filtration Rate Calc 91 >90 mL/min BUN/Creatinine Ratio 11.7 10.0-20.0 Serum Glucose 295 H 74-106 mg/dL Calcium Level 9.3 8.7-10.4 mg/dL Magnesium Level 1.6 1.6-2.6 mg/dL Total Bilirubin 0.4 0.2-1.0 mg/dL Aspartate Amino Transferase (AST) 13 13-40 U/L Alanine Aminotransferase (ALT) < 9 7-40 U/L Alkaline Phosphatase 97 46-116 U/L Total Protein 7.3 5.7-8.2 g/dL Albumin 4.2 3.2-4.8 g/dL Troponin I High Sensitivity < 3 L < 3 L </=54 ng/L POC Glucose 252 H 70-106 mg/dl Current Medications Medications (Trade) Dose Ordered Sig/Jefry Route Start Time Stop Time Status Last Admin Sodium Chloride 1,000 ml @ 150 mls/hr Q6H40M ONCE IV 10/31/24 09:00 10/31/24 12:58 DC 10/31/24 09:00 X-Ray, Labs, Meds, VS Comment Course in the emergency department eventful patient came in because of chest pain radiating to both shoulders patient is under stress blood pressure 148/95 blood sugar 252 patient has a history of diabetes high cholesterol and hypertension Chest x-ray EKG normal sinus rhythm at 95 with a left atrial enlargement and prolonged QT interval Troponin less than three tw CBC normal CMP blood sugar 295 Magnesium 1.6 Patient left without waiting for the workup to be done Time of 1ST Reevaluation: 08:35 Reevaluation 1ST: Unchanged Patient Education/Counseling: Diagnosis, Treatment, Prognosis Family Education/Counseling: No Family Present Additional Information - The following tests were ordered, and results were reviewed by me: EKG -x3, TROP -x3, CBC, CMP, MAGNESIUM - I discussed treatments and results with medical personnel and: patient Departure 1 Departure Time of Disposition: 15:46 Impression: Primary Impression: Chest pain Qualified Codes: R07.81 - Pleurodynia Additional Impression: Uncontrolled diabetes mellitus Qualified Codes: E11.65 - Type 2 diabetes mellitus with hyperglycemia Ruled Out: Pneumonia Disposition: 01 HOME / SELF CARE / HOMELESS Condition: Fair Additional Instructions: Follow up with your PCP Discharged With: Self Critical Care Note Critical Care Time?: No Stability Stability form required: No Heart Score Heart Score: Heart Score Response (Comments) Value History Slightly Suspicious 0 EKG Normal 0 Age 45-64 1 Risk Factors 1 or 2 risk factors 1 Troponin Normal limit 0 Total 2 I personally scribed for STEPHON GOODE MD ([email or web address]) on 10/31/24 at 08:14. Electronically submitted by Shadia Celis ([email or web address]). I personally scribed for STEPHON GOODE MD ([email or web address]) on 10/31/24 at 09:56. Electronically submitted by Shadia Celis ([email or web address]). STEPHON GOODE MD Oct 31, 2024 08:14
[2024-10-31] MEDS: SODIUM CHLORIDE 0.9% 1,000 ML IV ONE (09:00)
[2024-10-31 09:53] LABS: Basophils # (auto) 0 10 ^3/uL (0-0.2); Basophils % (auto) 0.4 % (0.0-2.0); Eosinophils # (auto) 0.1 10 ^3/uL (0-0.8); Eosinophils % (auto) 0.8 % (0.0-7.0); Hematocrit 42.1 % (41.0-53.0); Hemoglobin 13.8 g/dL (13.5-17.5); Lymphocytes # (auto) 2.2 10 ^3/uL (0.4-5.4); Lymphocytes % (auto) 29.1 % (10.0-50.0); Mean Corpuscular Hemoglobin 29.3 pg (28.0-32.0); Mean Corpuscular Hgb Conc. 32.8 g/dL (32.0-36.0); Mean Corpuscular Volume 89.3 fL (80.0-100.0); Monocytes # (auto) 0.5 10 ^3/uL (0-1.3); Monocytes % (auto) 6.6 % (0.0-12.0); Neutrophils # (auto) 4.7 10 ^3/uL (1.6-8.6); Neutrophils % (auto) 63.1 % (37.0-80.0); Nucleated Red Blood Cells % 0.1 %; Platelet Count (auto) 259 10^3/uL (140-450); Red Blood Cells 4.71 10^6/uL (4.5-5.90); Red Cell Distribution Width 13.2 % (11.8-14.3); White Blood Cell 7.4 10^3/uL (4.4-10.8)
[2024-10-31 10:07] LABS: Albumin 4.2 g/dL (3.2-4.8); Alkaline Phosphatase 97 U/L (46-116); Anion Gap 8 (5-15); Aspartate Aminotransferase 13 U/L (13-40); BUN/Creatinine Ratio 11.7 (10.0-20.0); Bilirubin, Total 0.4 mg/dL (0.2-1.0); Blood Urea Nitrogen 11 mg/dL (9-23); Calcium 9.3 mg/dL (8.7-10.4); Carbon Dioxide 20 mmol/L (20-31); Chloride 107 mmol/L (98-107); Magnesium 1.6 mg/dL (1.6-2.6); Potassium 4.5 mmol/L (3.5-5.1); Total Protein 7.3 g/dL (5.7-8.2)
[2024-10-31 10:10] LABS: Alanine Aminotransferase < 9 U/L (7-40); Glucose 295 mg/dL (74-106); Sodium 135 mmol/L (136-145)
--- NOTE | 2024-10-31 19:16 | ECG ---
[facility] Test Date: 2024-10-31 Test Time: 07:36:33 Pat Name: PATRICIA GRIGGS Department: ER Room: Gender: Hr Leader: NANCY : 1960 Requested By: STEPHON GOODE Order Number: [id number] Reading MD: Rigo Ramirez Measurements Intervals [place] Rate: 79 P: 54 [place]: 169 QRS: 25 QRSD: 107 T: 44 QT: 365 QTc: 419 Interpretive Statements Sinus rhythm RSR' in V1 or V2, right VCD or RVH Electronically Signed On 11-03-2024 21:56:22 PST by Rigo Ramirez Please click the below link to view image of tracing.
--- NOTE | 2024-11-02 11:22 | ECG ---
[facility] Test Date: 2024-10-31 Test Time: 06:38:12 Pat Name: PATRICIA GRIGGS Department: ER Room: Gender: M Call Center Consultant: ALIDA : 1960 Requested By: STEPHON GOODE Order Number: [id number] Reading MD: Rigo Ramirez Measurements Intervals [place] Rate: 95 P: 58 [place]: 160 QRS: 34 QRSD: 76 T: 5 QT: 415 QTc: 522 Interpretive Statements Sinus rhythm Probable left atrial enlargement Abnormal R-wave progression, early transition Borderline T wave abnormalities Prolonged QT interval Baseline wander in lead(s) V5 Electronically Signed On 11-03-2024 21:56:10 PST by Rigo Ramirez Please click the below link to view image of tracing.
== END 2024-10-31 12:50 | disposition left against medical advice (07) ==
LOC: ER 06:32
DX: R07.89 Other chest pain (principal); E11.65 Type 2 diabetes mellitus with hyperglycemia; E07.89 Other specified disorders of thyroid; E78.5 Hyperlipidemia, unspecified; F17.210 Nicotine dependence, cigarettes, uncomplicated; F12.90 Cannabis use, unspecified, uncomplicated; F15.90 Other stimulant use, unspecified, uncomplicated; Z79.899 Other long term (current) drug therapy; Z79.84 Long term (current) use of oral hypoglycemic drugs
CPT/HCPCS: 36415; 80053; 82962; 83735; 84484; 85025; 93005; 96360; 96361; 99284; J7030

== ENCOUNTER 2025-02-09 08:03 | Emergency (ER) | payer OTHER, MEDICAID ==
[~2025-02-09] VITALS: Ht 185.4 cm; Wt 107.1 kg
[2025-02-09 08:15] VITALS: BP 148/91; PULSE 111; RESP 16; TEMP 97.5; O2SAT 97
--- NOTE | 2025-02-09 08:39 | DVH ---
EXAM: XY CHEST PORTABLE Indication: sob Technique: Single frontal view of the chest was obtained Comparison: XY CHEST XRAY 1 VIEW on DOS: 08/13/24, XY CHEST PORTABLE on DOS: 03/19/24, XY CHEST PORTABL E on DOS: 04/14/23, CHEST PORTABLE on DOS: 12/21/20 FINDINGS: Lines and Tubes: None Lungs: No focal consolidation. Pleura: No effusion. No pneumothorax. Cardiomediastinal contours: Unremarkable Bones: No acute osseous abnormality. IMPRESSION: No acute cardiopulmonary disease.
== END 2025-02-09 08:42 | disposition left against medical advice (07) ==
LOC: ER 08:03
DX: R10.9 Unspecified abdominal pain (principal); Z53.21 Procedure and treatment not carried out due to patient leaving prior to being seen by health care provider
CPT/HCPCS: 71045

== ENCOUNTER 2025-02-21 15:04 | Emergency (ER) | payer OTHER, MEDICAID ==
[~2025-02-21] VITALS: Ht 185.4 cm; Wt 97.0 kg
--- NOTE | 2025-02-21 15:12 | ECG ---
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
--- NOTE | 2025-02-21 15:24 | ED.PDOC ---
HPI Comments 64 y/o M, with PMHx of HTN, HLD, DM, and CKF presents to the ED for CC of chest pain. Patient states, he has been experiencing substernal pressure like chest pain x1day. Patient reports, that he is currently homeless and was fixing tent up when pain suddenly came on. Patient denies shortness of breath, palpitations, headache, nausea, or vomiting. No other symptoms or modifying factors present at this time. Chief Complaint: Chest Pain Time Seen by MD: 15:15 Primary Care Provider: NONE Reviewed Notes: Nurses Notes, Medications, Allergies Allergies: Coded Allergies: NO KNOWN ALLERGIES (Unverified , 05/24/11) Home Meds Active Scripts Doxycycline Monohydrate (Doxycycline Monohydrate) 100 Mg Cap, 1 CAP PO BID, #20 CAP Prov:JOANN CISNEROS MD 10/26/24 Hydrocodone-Acetaminophen (Hydrocodone Bitartrate/AC 5-325 mg) 1 Tab Tab, 1 TAB PO Q6HP PRN, #15 TAB Prov:JOANN CISNEROS MD 10/26/24 Blood Glucose Monitoring Suppl (D-Care Glucometer Kit/Glu W/Device) 1 Kit Kit, KIT XX, #1 Prov:JOANN CISNEROS MD 08/17/24 Atorvastatin Calcium (Lipitor) 20 Mg Tab, 1 TAB PO DAILY, #90 TAB 1 Refill Prov:JOANN CISNEROS MD 08/17/24 Metoprolol Succinate (Metoprolol Succinate Er) 25 Mg Tab, 1 TAB PO DAILY, #30 TAB 5 Refills Prov:JOANN CISNEROS MD 08/17/24 Lisinopril (Lisinopril) 20 Mg Tab, 1 TAB PO DAILY, #30 TAB 5 Refills Prov:JOANN CISNEROS MD 08/17/24 Glipizide (Glipizide) 5 Mg Tab, 1 TAB PO BID for 30 Days, #60 TAB 3 Refills Prov:JOANN CISNEROS MD 08/17/24 Metformin HCl (Metformin Hydrochloride) 1,000 Mg Tab, 1000 MG PO BID for 30 Days, #60 TAB 2 Refills Prov:JOANN CISNEROS MD 08/17/24 Lisinopril (Lisinopril) 20 Mg Tab, 20 MG PO DAILY for 30 Days, #30 TAB 3 Refills Prov:YVON ROMERO MD 03/23/24 Potassium Chloride (Potassium Chloride ER) 10 Meq Tab, 10 MEQ PO DAILY, #30 MG Prov:BEVERLEY HOSKINS MD 03/30/23 Furosemide (Lasix) 40 Mg Tab, 40 MG PO DAILY, #30 MG Prov:BEVERLEY HOSKINS MD 03/30/23 Metoprolol Tartrate (Lopressor) 25 Mg Tb, 25 MG PO BID, #60 TAB Prov:BEVERLEY HOSKINS MD 03/30/23 Atorvastatin Calcium (ATORVASTATIN CALCIUM) 20 Mg Tab, 40 MG PO HS, #30 TAB Prov:BEVERLEY HOSKINS MD 03/30/23 Aspirin (Aspirin Low Dose) 81 Mg Tab, 81 MG PO DAILY, #30 TAB Prov:BEVERLEY HOSKINS MD 03/30/23 Nystatin (Nystatin) 1 Pow Pow, 1 POW XX BID for 15 Days, #30 POW Prov:JOANN CISNEROS MD 03/01/22 Metformin HCl (Metformin Hydrochloride) 1,000 Mg Tab, 1000 MG PO BID, #60 TAB 3 Refills Prov:JOANN CISNEROS MD 03/01/22 Hydrocodone-Acetaminophen (Hydrocodone Bitartrate/AC 10-325 mg) 1 Tab Tab, 1 TAB PO Q6HP PRN, #20 TAB Prov:JOANN CISNEROS MD 03/01/22 Information Source: Patient Mode of Arrival: Ambulatory Severity: Moderate Timing: Days Duration: Since onset Prehospital treatment: None Location: Substernal Quality: Pressure Onset: At Rest Cardiac Risk Factors: Smoker, HTN PE Risk Factors: None History of: Similar pain in past Modifying Factors: Nothing Associated Signs and Symptoms: None Past Medical History PAST MEDICAL HISTORY: CKF, DM, High Lipids, HTN Surgical History: Hernia Repair Family History Family History: Reviewed,noncontributory to illness Social History Smoker: Cigarettes, Less Than 1 Pack/Day Alcohol: Occasionally Drugs: Marijuana, Methamphetamine, Other Lives In: Homeless Constitutional: denies: chills, diaphoresis, fatigue, fever, malaise, sweats, weakness, others EENTM: denies: blurred vision, double vision, ear bleeding, ear discharge, ear drainage, ear pain, ear ringing, eye pain, eye redness, hearing loss, mouth pain, mouth swelling, nasal discharge, nose bleeding, nose congestion, nose pain, photophobia, tearing, throat pain, throat swelling, voice changes, others Respiratory: denies: cough, hemoptysis, orthopnea, SOB at rest, shortness of breath, SOB with excertion, stridor, wheezing, others Cardiovascular: reports: chest pain; denies: dizzy spells, diaphoresis, Dyspnea on exertion, edema, irregular heart beat, left arm pain, lightheadedness, palpitations, PND, syncope, others Gastrointestinal: denies: abdomen distended, abdominal pain, blood streaked bowels, constipated, diarrhea, dysphagia, difficulty swallowing, hematemesis, melena, nausea, poor appetite, poor fluid intake, rectal bleeding, rectal pain, vomiting, others Genitourinary: denies: burning, dysuria, flank pain, frequency, hematuria, incontinence, penile discharge, penile sore, pain, testicle pain, testicle swelling, urgency, others Neurological: denies: dizziness, fainting, headache, left sided numbness, left sided weakness, numbness, paresthesia, pre-existing deficit, right sided numbness, right sided weakness, seizure, speech problems, tingling, tremors, weakness, others Musculoskeletal: denies: back pain, gout, joint pain, joint swelling, muscle pa in, muscle stiffness, neck pain, others Integumetry: denies: bruises, change in color, change in hair/nails, dryness, laceration, lesions, lumps, rash, wounds, others Allergic/Immunocompromised: denies: Difficulty Healing, Frequent Infections, Hives, Itching, others Hematologic/Lymphatic: denies: anemia, blood clots, easy bleeding, easy bruising, swollen glands, others Endocrine: denies: excessive hunger, excessive sweating, excessive thirst, excessive urination, flushing, intolerance to cold, intolerance to heat, unexplained weight gain, unexplained weight loss, others Psychiatric: denies: anxiety, bipolar disorder, depression, hopeless, panic disorder, schizophrenia, sleepless, suicidal, others All Other Systems: Reviewed and Negative Physical Exam General Appearance: No Apparent Distress, Normal HEENT: Normal ENT Inspection, Pharynx Normal Neck: Full Range of Motion, Non-Tender, Normal, Normal Inspection Respiratory: Chest Non-Tender, Lungs Clear, No Accessory Muscle Use, No Respiratory Distress, Normal Breath Sounds Cardiovascular: No Edema, No Murmur, No Gallop, Normal Peripheral Pulses, Tachycardia Breast Exam: Deferred Gastrointestinal: No Organomegaly, Non Tender, No Pulsatile Mass, Normal Bowel Sounds, Soft Genitalia: Deferred Pelvic: Deferred Rectal: Deferred Extremities: No calf tenderness, Normal capillary refill, Normal inspection, Normal range of motion, Non-tender, No pedal edema Musculoskeletal : Apperance: Normal Neurologic: Alert, link trainer II-XII nml as Tested, No Motor Deficits, Normal Affect, Normal Mood, No Sensory Deficits Cerebellar Function: Normal Reflexes: Normal Skin: Dry, Normal Color, Warm Lymphatic: No Adenopathy EKG EKG : Pulse Rate (adult): 116 [place]: Normal Cardiac Rhythm: ST Block: None Hypertrophy: None ST: Normal Was a procedure done? Was a procedure done?: No CP Differential Dx Differential Diagnosis: Angina, Anxiety / Panic Attack, Sinus Tachycardia Differential Diagnosis: HTN Essential, HTN Accelerated X-Ray, Labs, Meds, VS Vital Signs Date Time Temp Pulse Resp B/P (MAP) Pulse Ox O2 Delivery O2 Flow Rate FiO2 02/21/25 16:12 109 02/21/25 15:24 116 02/21/25 15:15 98.5 111 18 132/79 (96) 96 98.5 02/21/25 15:09 116 Lab Test 02/21/25 16:21 02/21/25 15:10 Range/Units Troponin I High Sensitivity Pending < 3 L </=54 ng/L Time of 1ST Reevaluation: 15:45 Reevaluation 1ST: Unchanged Patient Education/Counseling: Diagnosis, Treatment, Prognosis, Need For Follow Up Family Education/Counseling: No Family Present Comments pt visits our ER often with the same complaint. this time he has had the same chest pain for days, without ekg or trop changes. the pain is reproducible by palpation. cxt does not show any abnormalities. he is stable for discharge Departure 1 Departure Time of Disposition: 16:44 Impression: Primary Impression: Chest wall pain Disposition: 01 HOME / SELF CARE / HOMELESS Condition: Good Discharged With: Self Critical Care Note Critical Care Time?: No Stability Stability form required: No Heart Score Heart Score: Heart Score Response (Comments) Value History Slightly Suspicious 0 EKG Normal 0 Age 45-64 1 Risk Factors >3 or Hx ASHD 2 Troponin Normal limit 0 Total 3 I personally scribed for JOVAN AUSTIN MD ([email or web address]) on 02/21/25 at 15:24. Electronically submitted by Kitty Romero [email or web address]). JOVAN AUSTIN MD Feb 21, 2025 15:24
--- NOTE | 2025-02-21 16:14 | ECG ---
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
--- NOTE | 2025-02-21 16:57 | DVH ---
CHEST RADIOGRAPH Indication: cp Technique: Single frontal view of the chest was obtained Comparison: XY CHEST PORTABLE on DOS: 02/09/25, XY CHEST XRAY 1 VIEW on DOS: 08/13/24, XY CHEST PORTABLE on DOS: 03/19/24 FINDINGS: Lines and Tubes: None Lungs: No focal consolidation. Pleura: No effusion. No pneumothorax. Cardiomediastinal contours: Unremarkable Bones: No acute osseous abnormality. IMPRESSION: 1. No acute cardiopulmonary disease.
[2025-02-21 17:03] VITALS: BP 154/107; PULSE 102; RESP 17; TEMP 98.7; O2SAT 97
== END 2025-02-21 17:09 | disposition home or self-care (01) ==
LOC: ER 15:12
DX: R07.89 Other chest pain (principal); F17.210 Nicotine dependence, cigarettes, uncomplicated; F10.90 Alcohol use, unspecified, uncomplicated; F12.90 Cannabis use, unspecified, uncomplicated; F19.90 Other psychoactive substance use, unspecified, uncomplicated; I12.9 Hypertensive chronic kidney disease with stage 1 through stage 4 chronic kidney disease, or unspecified chronic kidney disease; E11.22 Type 2 diabetes mellitus with diabetic chronic kidney disease; N18.9 Chronic kidney disease, unspecified; E78.5 Hyperlipidemia, unspecified; Z98.890 Other specified postprocedural states; Z79.899 Other long term (current) drug therapy; Z79.84 Long term (current) use of oral hypoglycemic drugs; Z59.00 Homelessness unspecified; Z79.82 Long term (current) use of aspirin; Y90.9 Presence of alcohol in blood, level not specified
CPT/HCPCS: 36415; 71045; 82947; 82962; 84484; 93005

== ENCOUNTER 2025-03-16 09:08 | Emergency (ER) | payer OTHER, MEDICAID ==
[~2025-03-16] VITALS: Ht 182.9 cm; Wt 105.3 kg
--- NOTE | 2025-03-16 11:16 | ED.PDOC ---
History of present illness HPI Comments 64 y/o M, with PMHx of DM, CKF, HLD, and HTN presents to the ED for CC of hyperglycemia. Patient states, he has been experiencing hyperglycemic blood sugar readings with associated symptoms of nausea, lightheadedness, and decreased appetite x2days. Patient reports, blood sugar this morning read at "494" on glucometer. In ED triage, patient's blood sugar read at "194" on glucometer. Patient denies blurred vision, excessive thirst, frequent urination, abdominal pain, or diarrhea. No other symptoms or modifying factors present at this time. Chief Complaint: Hyperglycemia Time Seen by MD: 11:00 Primary Care Provider: NONE History of present illness: Nurses Notes, Medications, Allergies Allergies: Coded Allergies: NO KNOWN ALLERGIES (Unverified , 05/24/11) Home Meds Active Scripts Doxycycline Monohydrate (Doxycycline Monohydrate) 100 Mg Cap, 1 CAP PO BID, #20 CAP Prov:JOANN CISNEROS MD 10/26/24 Hydrocodone-Acetaminophen (Hydrocodone Bitartrate/AC 5-325 mg) 1 Tab Tab, 1 TAB PO Q6HP PRN, #15 TAB Prov:JOANN CISNEROS MD 10/26/24 Blood Glucose Monitoring Suppl (D-Care Glucometer Kit/Glu W/Device) 1 Kit Kit, KIT XX, #1 Prov:JOANN CISNEROS MD 08/17/24 Atorvastatin Calcium (Lipitor) 20 Mg Tab, 1 TAB PO DAILY, #90 TAB 1 Refill Prov:JOANN CISNEROS MD 08/17/24 Metoprolol Succinate (Metoprolol Succinate Er) 25 Mg Tab, 1 TAB PO DAILY, #30 TAB 5 Refills Prov:JOANN CISNEROS MD 08/17/24 Lisinopril (Lisinopril) 20 Mg Tab, 1 TAB PO DAILY, #30 TAB 5 Refills Prov:JOANN CISNEROS MD 08/17/24 Glipizide (Glipizide) 5 Mg Tab, 1 TAB PO BID for 30 Days, #60 TAB 3 Refills Prov:JOANN CISNEROS MD 08/17/24 Metformin HCl (Metformin Hydrochloride) 1,000 Mg Tab, 1000 MG PO BID for 30 Days, #60 TAB 2 Refills Prov:JOANN CISNEROS MD 08/17/24 Lisinopril (Lisinopril) 20 Mg Tab, 20 MG PO DAILY for 30 Days, #30 TAB 3 Refills Prov:YVON ROMERO MD 03/23/24 Potassium Chloride (Potassium Chloride ER) 10 Meq Tab, 10 MEQ PO DAILY, #30 MG Prov:BEVERLEY HOSKINS MD 03/30/23 Furosemide (Lasix) 40 Mg Tab, 40 MG PO DAILY, #30 MG Prov:BEVERLEY HOSKINS MD 03/30/23 Metoprolol Tartrate (Lopressor) 25 Mg Tb, 25 MG PO BID, #60 TAB Prov:BEVERLEY HOSKINS MD 03/30/23 Atorvastatin Calcium (ATORVASTATIN CALCIUM) 20 Mg Tab, 40 MG PO HS, #30 TAB Prov:BEVERLEY HOSKINS MD 03/30/23 Aspirin (Aspirin Low Dose) 81 Mg Tab, 81 MG PO DAILY, #30 TAB Prov:BEVERLEY HOSKINS MD 03/30/23 Nystatin (Nystatin) 1 Pow Pow, 1 POW XX BID for 15 Days, #30 POW Prov:JOANN CISNEROS MD 03/01/22 Metformin HCl (Metformin Hydrochloride) 1,000 Mg Tab, 1000 MG PO BID, #60 TAB 3 Refills Prov:JOANN CISNEROS MD 03/01/22 Hydrocodone-Acetaminophen (Hydrocodone Bitartrate/AC 10-325 mg) 1 Tab Tab, 1 TAB PO Q6HP PRN, #20 TAB Prov:JOANN CISNEROS MD 03/01/22 Information Source: Patient Mode of Arrival: Ambulatory Timing: Days Duration: Since onset Mobile: None Symptoms: Eating poorly History of: Diabetes, Insulin use Modifying factors: Nothing Associated signs and symptoms: Nausea Past Medical History PAST MEDICAL HISTORY: CKF, DM, High Lipids, HTN Surgical History: Hernia Repair Family History Family History: Reviewed,noncontributory to illness Social History Smoker: Cigarettes, Less Than 1 Pack/Day Alcohol: Occasionally Drugs: Marijuana, Methamphetamine, Other Lives In: Homeless Constitutional: denies: chills, diaphoresis, fatigue, fever, malaise, sweats, weakness, others EENTM: denies: blurred vision, double vision, ear bleeding, ear discharge, ear drainage, ear pain, ear ringing, eye pain, eye redness, hearing loss, mouth pain, mouth swelling, nasal discharge, nose bleeding, nose congestion, nose pain, photophobia, tearing, throat pain, throat swelling, voice changes, others Respiratory: denies: cough, hemoptysis, orthopnea, SOB at rest, shortness of breath, SOB with excertion, stridor, wheezing, others Cardiovascular: denies: chest pain, dizzy spells, diaphoresis, Dyspnea on exertion, edema, irregular heart beat, left arm pain, lightheadedness, palpitations, PND, syncope, others Gastrointestinal: reports: nausea, poor appetite; denies: abdomen distended, abdominal pain, blood streaked bowels, constipated, diarrhea, dysphagia, difficulty swallowing, hematemesis, melena, poor fluid intake, rectal bleeding, rectal pain, vomiting, others Genitourinary: denies: burning, dysuria, flank pain, frequency, hematuria, incontinence, penile discharge, penile sore, pain, testicle pain, testicle swelling, urgency, others Neurological: reports: others (lightheaded); denies: dizziness, fainting, headache, left sided numbness, left sided weakness, numbness, paresthesia, pre- existing deficit, right sided numbness, right sided weakness, seizure, speech problems, tingling, tremors, weakness Musculoskeletal: denies: back pain, gout, joint pain, joint swelling, muscle pain, muscle stiffness, neck pain, others Integumetry: denies: bruises, change in color, change in hair/nails, dryness, laceration, lesions, lumps, rash, wounds, others Allergic/Immunocompromised: denies: Difficulty Healing, Frequent Infections, Hives, Itching, others Hematologic/Lymphatic: denies: anemia, blood clots, easy bleeding, easy bruising, swollen glands, others Endocrine: denies: excessive hunger, excessive sweating, excessive thirst, excessive urination, flushing, intolerance to cold, intolerance to heat, unexplained weight gain, unexplained weight loss, others Psychiatric: denies: anxiety, bipolar disorder, depression, hopeless, panic disorder, schizophrenia, sleepless, suicidal, others All Other Systems: Reviewed and Negative Physical Exam General Appearance: No Apparent Distress, Normal HEENT: Normal ENT Inspection, Pharynx Normal Neck: Full Range of Motion, Non-Tender, Normal, Normal Inspection Respiratory: Chest Non-Tender, Lungs Clear, No Accessory Muscle Use, No Respiratory Distress, Normal Breath Sounds Cardiovascular: No Edema, No Murmur, No Gallop, Normal Peripheral Pulses, Regular Rate/Rhythm Breast Exam: Deferred Gastrointestinal: No Organomegaly, Non Tender, No Pulsatile Mass, Normal Bowel Sounds, Soft Genitalia: Deferred Pelvic: Deferred Rectal: Deferred Extremities: No calf tenderness, Normal capillary refill, Normal inspection, Normal range of motion, Non-tender, No pedal edema Musculoskeletal : Apperance: Normal Neurologic: Alert, rotary soil stabilizer II-XII nml as Tested, No Motor Deficits, Normal Affect, Normal Mood, No Sensory Deficits Cerebellar Function: Normal Reflexes: Normal Skin: Dry, Normal Color, Warm Lymphatic: No Adenopathy Was a procedure done? Was a procedure done?: No Differential Diagnosis (DM) Differential Diagnosis: Dehydration, Electrolyte Abnormality, Hyperglycemia X-Ray, Labs, Meds, VS Vital Signs Date Time Temp Pulse Resp B/P (MAP) Pulse Ox O2 Delivery O2 Flow Rate FiO2 03/16/25 12:46 97.5 90 16 150/103 (119) 95 97.5 03/16/25 09:21 98.7 91 18 162/97 (118) 95 98.7 Lab Test 03/16/25 12:51 03/16/25 11:18 03/16/25 09:24 Range/Units Troponin I High Sensitivity Pending 3 L </=54 ng/L White Blood Count 6.4 4.4-10.8 10^3/uL Red Blood Count 4.91 4.5-5.90 10^6/uL Hemoglobin 14.6 13.5-17.5 g/dL Hematocrit 44.1 41.0-53.0 % Mean Corpuscular Volume 89.8 80.0-100.0 fL Mean Corpuscular Hemoglobin 29.8 28.0-32.0 pg Mean Corpuscular Hemoglobin Concent 33.1 32.0-36.0 g/dL Red Cell Distribution Width 13.6 11.8-14.3 % Platelet Count 226 140-450 10^3/uL Mean Platelet Volume 8.8 6.9-10.8 fL Neutrophils (%) (Auto) 57.8 37.0-80.0 % Lymphocytes (%) (Auto) 32.7 10.0-50.0 % Monocytes (%) (Auto) 7.3 0.0-12.0 % Eosinophils (%) (Auto) 1.6 0.0-7.0 % Basophils (%) (Auto) 0.6 0.0-2.0 % Neutrophils # (Auto) 3.7 1.6-8.6 10 ^3/uL Lymphocytes # (Auto) 2.1 0.4-5.4 10 ^3/uL Monocytes # (Auto) 0.5 0-1.3 10 ^3/uL Eosinophils # (Auto) 0.1 0-0.8 10 ^3/uL Basophils # (Auto) 0 0-0.2 10 ^3/uL Nucleated Red Blood Cells 0.1 % Sodium Level 140 136-145 mmol/L Potassium Level 4.9 3.5-5.1 mmol/L Chloride Level 106 98-107 mmol/L Carbon Dioxide Level 30 20-31 mmol/L Anion Gap 4 L 5-15 Blood Urea Nitrogen 12 9-23 mg/dL Creatinine 1.16 0.700-1.30 mg/dL Glomerular Filtration Rate Calc 70 >90 mL/min BUN/Creatinine Ratio 10.3 10.0-20.0 Serum Glucose 228 H 74-106 mg/dL Calcium Level 10.1 8.7-10.4 mg/dL POC Glucose 194 H 70-106 mg/dl Time of 1ST Reevaluation: 11:30 Reevaluation 1ST: Unchanged Patient Education/Counseling: Diagnosis, Treatment Family Education/Counseling: No Family Present SEPSIS Sepsis Screen Date sepsis recognized/suspect: Mar 16, 2025 Time Sepsis recognized/suspect: 920 Recent Procedure: No On Antibiotic Therapy: No Respiratory Rate >20: No Heart Rate >90: Yes Temp<36 C (96.8 F) or >38.3 C: No SBP <90 or MAP <65 mmHG: No New Acute Mental Status Change: No Is the patient on CPAP, BIPAP,: No Physician Orders Urinalysis (03/16/25 11:07) Troponin-I Hs (03/16/25 12:07) Troponin-I Hs (03/16/25 14:07) Hydralazine Injection (Apresoline Inject (03/16/25 13:30) Chest Portable (03/16/25 13:18) Vital Signs Date Time Temp Pulse Resp B/P (MAP) Pulse Ox O2 Delivery O2 Flow Rate FiO2 03/16/25 12:46 97.5 90 16 150/103 (119) 95 97.5 03/16/25 09:21 98.7 91 18 162/97 (118) 95 98.7 Laboratory Tests Test 03/16/25 11:18 White Blood Count 6.4 10^3/uL (4.4-10.8) Departure 1 Departure Time of Disposition: 13:18 (Patient presented with hypertension and symptoms concerning for hypertensive emergency. Patient is receiving iv blood pressure medications requiring intensive monitoring. Data: 1. I ordered and reviewed the result of at least 3 labs including a CBC, BMP, and Urinalysis. 2. I independently interpreted the following tests: Chest x-ray which is benign. EKG which is Normal Sinus RhythmRisk:This patient has a high risk of morbidity due to further diagnostic testing or treatment and may suffer from an acute cardiac disorder. Workup reveals hypertensive emergency and patient should be admitted for further workup. and possible expert consultation. ) Impression: Primary Impression: Hypertensive urgency Additional Impression: Uncontrolled diabetes mellitus Qualified Codes: E11.65 - Type 2 diabetes mellitus with hyperglycemia Disposition: ADMITTED INPATIENT Admit to: Med Surg Condition: Serious Discharged With: Self Critical Care Note Critical Care Time?: Yes Critical care comment: Hypertensive urgency Authorized and Performed by: Janet Cartagena MD Total critical care time: Approximately 33 minutes Due to a high probability of clinically significant, life threatening deterioration, the patient required my highest level of preparedness to intervene emergently and I personally spent this critical care time directly and personally managing the patient. This critical care time included obtaining a history; examining the patient; pulse oximetry; ordering and review of studies; arranging urgent treatment with development of a management plan; evaluation of patient's response to treatment; frequent reassessment; and, discussions with other providers. This critical care time was performed to assess and manage the high probability of imminent, life-threatening deterioration that could result in multi-organ failure. It was exclusive of separately billable procedures and treating other patients and teaching time. Please see my other sections and the rest of the note for further information on patient assessment and treatment. Stability Stability form required: No Heart Score Heart Score: Heart Score Response (Comments) Value History N/A 0 EKG N/A 0 Age N/A 0 Risk Factors N/A 0 Troponin N/A 0 Total 0 I personally scribed for JANET CARTAGENA MD ([email or web address]) on 03/16/25 at 11:15. Electronically submitted by Kitty Romero ([email or web address]). JANET CARTAGENA MD Mar 16, 2025 11:15
[2025-03-16 11:39] LABS: Hematocrit 44.1 % (41.0-53.0); Hemoglobin 14.6 g/dL (13.5-17.5); Mean Corpuscular Hemoglobin 29.8 pg (28.0-32.0); Mean Corpuscular Volume 89.8 fL (80.0-100.0); Nucleated Red Blood Cells % 0.1 %
[2025-03-16 11:44] LABS: Chloride 106 mmol/L (98-107); Potassium 4.9 mmol/L (3.5-5.1); Sodium 140 mmol/L (136-145)
[2025-03-16 11:45] LABS: Anion Gap 4 (5-15); Calcium 10.1 mg/dL (8.7-10.4); Carbon Dioxide 30 mmol/L (20-31)
[2025-03-16 11:50] LABS: BUN/Creatinine Ratio 10.3 (10.0-20.0); Blood Urea Nitrogen 12 mg/dL (9-23)
[2025-03-16 11:51] LABS: Glucose 228 mg/dL (74-106)
[2025-03-16 12:46] VITALS: BP 150/103; PULSE 90; RESP 16; TEMP 97.5; O2SAT 95
[2025-03-16] MEDS ORDERED: hydrALAZINE HCL 20 MG/ML VL IV ONE (13:30)
== END 2025-03-16 14:34 | disposition left against medical advice (07) ==
LOC: ER 09:08
DX: I16.0 Hypertensive urgency (principal); E11.65 Type 2 diabetes mellitus with hyperglycemia; E78.5 Hyperlipidemia, unspecified; I10 Essential (primary) hypertension; F17.210 Nicotine dependence, cigarettes, uncomplicated; Z59.00 Homelessness unspecified; Z98.890 Other specified postprocedural states; Z79.899 Other long term (current) drug therapy
CPT/HCPCS: 36415; 80048; 82947; 82962; 84484; 85025

== ENCOUNTER 2025-04-03 08:08 | Inpatient (IN) | payer OTHER, MEDICAID ==
[2025-04-03] VITALS (7 sets, daily range): BP systolic 116–128; BP diastolic 78–91; PULSE 69–90; RESP 14–18; TEMP 98–98.4; O2SAT 97–99
[~2025-04-03] VITALS: Ht 182.9 cm; Wt 111.5 kg
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
[2025-04-03 08:46] LABS: Hematocrit 42.1 % (41.0-53.0); Hemoglobin 14.1 g/dL (13.5-17.5); Mean Corpuscular Hemoglobin 30.0 pg (28.0-32.0); Mean Corpuscular Volume 89.8 fL (80.0-100.0); Nucleated Red Blood Cells % 0.1 %
[2025-04-03 08:55] LABS: Chloride 105 mmol/L (98-107); Potassium 4.2 mmol/L (3.5-5.1); Sodium 140 mmol/L (136-145)
[2025-04-03 08:56] LABS: Anion Gap 7 (5-15); Calcium 9.8 mg/dL (8.7-10.4); Carbon Dioxide 28 mmol/L (20-31)
[2025-04-03 09:01] LABS: BUN/Creatinine Ratio 11.9 (10.0-20.0); Blood Urea Nitrogen 13 mg/dL (9-23)
[2025-04-03 09:03] LABS: Glucose 191 mg/dL (74-106)
[2025-04-03] MEDS: HYDROcodone-ACET 5/325MG TAB PO ONE (09:59)
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
[2025-04-03] MEDS ORDERED: DOCUSATE SOD 100 MG CAP PO PRN (10:45)
[2025-04-03] MEDS ORDERED: ONDANSETRON HCL 4 MG/2 ML VIAL IV PRN (10:45)
[2025-04-03] MEDS ORDERED: NITROGLYCERIN 0.4 MG SL TAB SL PRN (10:45)
[2025-04-03] MEDS: ENOXAPARIN SOD 40 MG/0.4 ML SYRINGE SC SCH (11:30)
[2025-04-03] MEDS: METOPROLOL TARTRATE 25 MG TAB PO SCH (11:30)
--- NOTE | 2025-04-03 13:45 | DVH ---
Bilateral lower extremity venous Doppler INDICATION: eval for dvt TECHNIQUE: Duplex venous sonography was performed with real-time and flow sensitive images submitted for evaluation. FINDINGS: Normal phasic venous flow. Veins are fully compressible. No filling defects. IMPRESSION: 1. No evidence of deep vein thrombosis.
[2025-04-03] MEDS: SODIUM CHLORIDE 0.9% 1,000 ML IV SCH (16:02)
[2025-04-03] MEDS: ATORVASTATIN 20 MG TAB PO SCH (21:37)
[2025-04-04] VITALS (8 sets, daily range): BP systolic 127–148; BP diastolic 77–96; PULSE 58–87; RESP 17–20; TEMP 97.4–98.5; O2SAT 95–98
[2025-04-04] MEDS: ASPirin-EC 81 mg tab PO SCH (09:14)
[2025-04-04] MEDS: LISINOPRIL 20 MG TAB PO SCH (09:15)
[2025-04-04 09:45] LABS: Hematocrit 39.2 % (41.0-53.0); Hemoglobin 13.3 g/dL (13.5-17.5); Mean Corpuscular Hemoglobin 30.7 pg (28.0-32.0); Mean Corpuscular Volume 90.5 fL (80.0-100.0); Nucleated Red Blood Cells % 0.0 %
[2025-04-04 10:05] LABS: Alanine Aminotransferase 18 U/L (7-40); Albumin 3.5 g/dL (3.2-4.8); Alkaline Phosphatase 73 U/L (46-116); Anion Gap 7 (5-15); BUN/Creatinine Ratio 11.7 (10.0-20.0); Blood Urea Nitrogen 12 mg/dL (9-23); Calcium 9.5 mg/dL (8.7-10.4); Carbon Dioxide 25 mmol/L (20-31); Chloride 106 mmol/L (98-107); Potassium 4.6 mmol/L (3.5-5.1); Sodium 138 mmol/L (136-145); Total Protein 6.0 g/dL (5.7-8.2)
[2025-04-04 10:06] LABS: Bilirubin, Total 0.6 mg/dL (0.2-1.0)
[2025-04-04 10:11] LABS: Glucose 280 mg/dL (74-106)
[2025-04-04] MEDS ORDERED: DEXTROSE (50%) 50ML SYRG IV PRN (10:30)
[2025-04-04] MEDS: ACCU-CHEK COMFORT CURVE STRIP VI SCH (11:06)
[2025-04-04] MEDS: InsuLIN REG 1unit/0.01ml Soln (100units/ml) SC SCH ×2 (11:20→21:56)
[2025-04-04] MEDS: ACETAMINOPHEN 325 MG TAB PO PRN (17:32)
--- NOTE | 2025-04-04 23:46 | DVHPN2 ---
Subjective The patient is seen and examined at bedside. Complain of chest pain and abdominal pain. Reviewed: Care Plan, H&P, Labs, Medications, Previous Orders, Radiology Changes from previous H/P or p: No Changes Eyes: No Pain, No Vision change, No Conjunctivae inflammation, No Eyelid inflammation, No Other, No Redness ENT: No Ear pain, No Ear discharge, No Nose pain, No Nose discharge, No Nose congestion, No Mouth pain, No Mouth swelling, No Throat pain, No Throat swelling, No Other Cardiovascular: No Chest Pain, No Palpitations, No Orthopnea, No Paroxysmal Noc. Dyspnea, No Edema, No Lt Headedness, No Other Respiratory: No Cough, No Dry, No Shortness of breath, No SOB with excertion, No Wheezing, No Hemoptysis, No Pleuritic Pain, No Sputum, No Other Gastrointestinal: No Nausea, No Vomiting, No Abdominal Pain, No Diarrhea, No Constipation, No Melena, No Hematochezia, No Other Genitourinary: No Dysuria, No Frequency, No Incontinence, No Hematuria, No Retention, No Other Musculoskeletal: No other, No neck pain, No shoulder pain, No arm pain, No back pain, No hand pain, No leg pain, No foot pain Skin: No Rash, No Lesions, No Jaundice, No Bruising, No Other Objective Vitals Vital Signs Date Time Temp Pulse Resp B/P (MAP) Pulse Ox O2 Delivery O2 Flow Rate FiO2 04/04/25 21:40 87 135/90 04/04/25 21:00 97.6 20 97 97.6 04/04/25 08:00 Room Air* 0 21 Intake/Output Intake and Output 04/04/25 07:00 Intake Total 590 ml Output Total 600 ml Balance -10 ml Intake Oral 590 ml Output Urine Total 600 ml # Voids 1 General Appearance: Alert, Oriented X3, Cooperative, No acute distress HEENT: Atraumatic, PERRLA, EOMI, Mucous membr. moist/pink Neck: Supple Lungs: Clear to auscultation, Normal air movement Cardiovascular: Regular rate, Normal S1, Normal S2, No murmurs, Gallops, Rubs Abdomen: Normal bowel sounds, Soft, No tenderness Neuro: Cranial nerves 3-12 NL Psych/Mental Status: Mental status NL Medications Current Medications Medications Dose Ordered Sig/Jefry Route Start Time Stop Time Status Last Admin Dose Admin Sodium Chloride 1,000 ml @ 100 mls/hr Q10H IV 04/03/25 10:45 04/04/25 17:32 100 MLS/HR Ondansetron HCl 4 mg Q4HP PRN IV 04/03/25 10:45 Docusate Sodium 100 mg BIDPRN PRN PO 04/03/25 10:45 Enoxaparin Sodium 40 mg DAILY SC 04/03/25 10:45 04/04/25 09:15 40 MG Nitroglycerin 0.4 mg Q5MINP PRN SL 04/03/25 10:45 Aspirin 81 mg DAILY PO 04/04/25 10:00 04/04/25 09:14 81 MG Atorvastatin Calcium 40 mg HS PO 04/03/25 22:00 04/04/25 21:40 40 MG Lisinopril 20 mg DAILY PO 04/04/25 10:00 04/04/25 09:15 20 MG Metoprolol Tartrate 25 mg BID PO 04/03/25 10:53 04/04/25 21:40 25 MG Diagnostic Test (Pha) 1 strip ACHS 04/04/25 11:30 04/04/25 21:45 1 STRIP Insulin Human Regular HS SC 04/04/25 22:00 04/04/25 21:56 3 UNITS Insulin Human Regular AC SC 04/04/25 11:30 04/04/25 17:26 3 UNITS Dextrose 50 ml UD PRN IV 04/04/25 10:30 Acetaminophen 650 mg Q4HP PRN PO 04/04/25 14:45 04/04/25 17:32 650 MG Laboratory Results Laboratory Tests 04/04/25 09:20 Chemistry Test 04/04/25 09:20 Albumin 3.5 g/dL (3.2-4.8) Calcium Level 9.5 mg/dL (8.7-10.4) Total Protein 6.0 g/dL (5.7-8.2) LFT Test 04/04/25 09:20 Alanine Aminotransferase (ALT) 18 U/L (7-40) Alkaline Phosphatase 73 U/L (46-116) Aspartate Amino Transferase (AST) 15 U/L (13-40) Total Bilirubin 0.6 mg/dL (0.2-1.0) HgA1c, TSH Test 04/04/25 09:20 Hemoglobin A1c 9.2 % A1C (<5.7) H Labs and/or images reviewed: Labs reviewed by me Assessment/Plan Assessment/Plan acute Hypertension urgency BP 153/115 on arrival Restart prior antihypertensives Monitor blood pressure every 4 hours Type 2 Diabetes Mellitus uncontrolled Off medications for ~1 month due to loss Glucose 191 in ED Start monitoring insulin regimen with sliding scale goal is to restart previous oral medications if known Monitor blood glucose levels during admission Diabetic diet and diabetes education Social instability / homelessness Consult social media specialist for housing assistance, medication replacement resources Evaluate for [facility] access and possible discharge planning support Tobacco use Patient is a current smoker Nicotine patch provided in ED Offer smoking cessation counseling more than 15 minutes chronic problems Chronic kidney disease Hyperlipidemia Resume prior statin therapy if known/Lipid panel may be obtained if indicated can be ordered by rounding team Type 2 diabetes mellitus Hypertension Hyperlipidemia Tobacco use disorder Continuing current management. This medical document was created using an electronic medical record system with [employer] direct computerized dictation system. Although this document has been carefully reviewed, there may still be some phonetic and typographical errors. These areas are purely typographical due to imperfections of the software programs, and do not reflect any compromise in the patient's medical care. Plan discussed with: Patient My Orders Orders - SHARON MONTEIRO MD Procedure Category Date Status Time Glucose Blood PHA 04/04/25 In Process (Accu-Chek Comfort 11:30 Insulin R (Human) PHA 04/04/25 In Process (Insulin R) 22:00 Insulin R (Human) PHA 04/04/25 In Process (Insulin R) 11:30 Dextrose 50% Syringe PHA 04/04/25 In Process 10:30 Acetaminophen Tablet PHA 04/04/25 In Process (Tylenol Tablet) 14:45 Date of Service: Apr 04, 2025 Billing Provider: SHARON MONTEIRO MD Common Visit Codes: [id number] INP/OBS CARE(HIGH) SHARON MONTEIRO MD Apr 04, 2025 23:46
[2025-04-05 01:00] VITALS: BP 123/82; PULSE 60; RESP 20; TEMP 98; O2SAT 96
[2025-04-05 05:00] VITALS: BP 143/88; PULSE 72; RESP 19; TEMP 98; O2SAT 69
[2025-04-05 08:00] VITALS: PULSE 65
[2025-04-05] MEDS ORDERED: LISI20TA56 PO (08:47)
[2025-04-05] MEDS ORDERED: HYDR-4798 PO (08:47)
[2025-04-05] MEDS ORDERED: ATOR20TA PO (08:47)
[2025-04-05] MEDS ORDERED: METF-929 PO (08:47)
[2025-04-05] MEDS ORDERED: METO25TA93 PO (08:47)
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
[2025-04-05 09:00] VITALS: BP 130/87; PULSE 68; RESP 18; TEMP 98; O2SAT 96
[2025-04-05 11:05] VITALS: BP 130/82; PULSE 75
--- NOTE | 2025-04-05 13:38 | ECG ---
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
== END 2025-04-05 12:59 | disposition home or self-care (01) | DRG 305 ==
LOC: ER 08:14 → OVERFLOW 10:40 → TELE-EAST 15:54
PROVIDERS: ADMIT Internal Medicine Geriatric Medicine; ATTEND Internal Medicine Geriatric Medicine
DX: I16.0 Hypertensive urgency (principal); Z59.00 Homelessness unspecified; E11.22 Type 2 diabetes mellitus with diabetic chronic kidney disease; F17.210 Nicotine dependence, cigarettes, uncomplicated; N18.9 Chronic kidney disease, unspecified; I12.9 Hypertensive chronic kidney disease with stage 1 through stage 4 chronic kidney disease, or unspecified chronic kidney disease; E78.2 Mixed hyperlipidemia; Z79.82 Long term (current) use of aspirin; Z79.84 Long term (current) use of oral hypoglycemic drugs; Z79.899 Other long term (current) drug therapy; Z91.148 Patient's other noncompliance with medication regimen for other reason; Z71.6 Tobacco abuse counseling
CPT/HCPCS: 36415; 80048; 80053; 82962; 83036; 85025; 93005; 93970; G0378; J1815

== ENCOUNTER 2025-04-29 10:16 | Emergency (ER) | payer OTHER, MEDICAID ==
[~2025-04-29] VITALS: Ht 182.9 cm; Wt 106.0 kg
[~2025-04-29 10:16] MED LIST changes: -ATOR20TA50 PO; -DOXY1CAP57 PO; -FURO1TAB31 PO; -GLIP5TAB21 PO; -HYDR-4902 PO; -MET25T PO; -NYST150P2 XX; -POTA-228 PO
--- NOTE | 2025-04-29 11:18 | ED.PDOC ---
History of Present Illness HPI Comments 64-year-old male with history of hypertension, diabetes, dyslipidemia, CKD, chronic bilateral foot pain (probably neuropathy) brought in by self complaining of worsening bilateral foot pain since running out of his [place] a week ago. He also notes left-sided chest pain radiating to the left shoulder for the last 2 days, moderate in severity, sharp, worse with movement, possibly due to carrying a heavy backpack. He denies any fever, cough, vomiting, diaphoresis or edema. He has had nausea. Chief Complaint: Nausea/Vomiting Time Seen by MD: 10:27 Primary Care Provider: NONE Allergies: Coded Allergies: NO KNOWN ALLERGIES (Unverified , 05/24/11) Home Meds Active Scripts Atorvastatin Calcium (Lipitor) 20 Mg Tab, 1 TAB PO DAILY for 30 Days, #30 TAB 1 Refill Prov:JOANN CISNEROS MD 04/05/25 Metoprolol Succinate (Metoprolol Succinate Er) 25 Mg Tab, 1 TAB PO DAILY, #30 TAB 5 Refills Prov:JOANN CISNEROS MD 04/05/25 Lisinopril (Lisinopril) 20 Mg Tab, 1 TAB PO DAILY, #30 TAB 5 Refills Prov:JOANN CISNEROS MD 04/05/25 Metformin HCl (Metformin Hydrochloride) 1,000 Mg Tab, 1000 MG PO BID, #60 TAB 3 Refills Prov:JOANN CISNEROS MD 04/05/25 Hydrocodone-Acetaminophen (Hydrocodone Bitartrate/AC 10-325 mg) 1 Tab Tab, 1 TAB PO Q6HP PRN, #20 TAB Prov:JOANN CISNEROS MD 04/05/25 Blood Glucose Monitoring Suppl (D-Care Glucometer Kit/Glu W/Device) 1 Kit Kit, KIT XX, #1 Prov:JOANN CISNEROS MD 08/17/24 Aspirin (Aspirin Low Dose) 81 Mg Tab, 81 MG PO DAILY, #30 TAB Prov:BEVERLEY HOSKINS MD 03/30/23 Information Source: Patient Mode of Arrival: Ambulatory Severity: Moderate Timing: Days Duration: Intermittent Prehospital treatment: None Past Medical History PAST MEDICAL HISTORY: CKF, DM, High Lipids, HTN Surgical History: Hernia Repair Family History Family History: Reviewed,noncontributory to illness Social History Smoker: Cigarettes, Less Than 1 Pack/Day Alcohol: Occasionally Drugs: Marijuana, Methamphetamine, Other Lives In: Homeless Constitutional: denies: chills, diaphoresis, fatigue, fever, malaise, sweats, weakness, others EENTM: denies: blurred vision, double vision, ear bleeding, ear discharge, ear drainage, ear pain, ear ringing, eye pain, eye redness, hearing loss, mouth pain, mouth swelling, nasal discharge, nose bleeding, nose congestion, nose pain, photophobia, tearing, throat pain, throat swelling, voice changes, others Respiratory: denies: cough, hemoptysis, orthopnea, SOB at rest, shortness of breath, SOB with excertion, stridor, wheezing, others Cardiovascular: denies: chest pain, dizzy spells, diaphoresis, Dyspnea on exertion, edema, irregular heart beat, left arm pain, lightheadedness, palpitations, PND, syncope, others Gastrointestinal: denies: abdomen distended, abdominal pain, blood streaked bowels, constipated, diarrhea, dysphagia, difficulty swallowing, hematemesis, melena, nausea, poor appetite, poor fluid intake, rectal bleeding, rectal pain, vomiting, others Genitourinary: denies: burning, dysuria, flank pain, frequency, hematuria, incontinence, penile discharge, penile sore, pain, testicle pain, testicle swelling, urgency, others Neurological: denies: dizziness, fainting, headache, left sided numbness, left sided weakness, numbness, paresthesia, pre-existing deficit, right sided numbness, right sided weakness, seizure, speech problems, tingling, tremors, weakness, others Musculoskeletal: reports: muscle pain; denies: back pain, gout, joint pain, joint swelling, muscle stiffness, neck pain, others Integumetry: denies: bruises, change in color, change in hair/nails, dryness, laceration, lesions, lumps, rash, wounds, others Allergic/Immunocompromised: denies: Difficulty Healing, Frequent Infections, Hives, Itching, others Hematologic/Lymphatic: denies: anemia, blood clots, easy bleeding, easy bruising, swollen glands, others Endocrine: denies: excessive hunger, excessive sweating, excessive thirst, excessive urination, flushing, intolerance to cold, intolerance to heat, unexpl ained weight gain, unexplained weight loss, others Psychiatric: denies: anxiety, bipolar disorder, depression, hopeless, panic disorder, schizophrenia, sleepless, suicidal, others All Other Systems: Reviewed and Negative Physical Exam General Appearance: No Apparent Distress HEENT: Other (Pupils and face symmetric. Moist mucous membranes.) Neck: Full Range of Motion, Normal Inspection Respiratory: Lungs Clear, No Accessory Muscle Use, No Respiratory Distress, Normal Breath Sounds, Other (Palpation of left upper chest wall and left shoulder anterior aspect reproduces pain) Cardiovascular: No Edema, No JVD, Regular Rate/Rhythm Breast Exam: Deferred Gastrointestinal: Non Tender, Soft Genitalia: Deferred Pelvic: Deferred Rectal: Deferred Extremities: Normal inspection, Normal range of motion, No pedal edema, Other (Palpation of the left anterior shoulder and left upper chest wall reproduces the pain.) Neurologic: Alert (Oriented x4), Normal Affect, Normal Mood, Other (Ambulatory) Cerebellar Function: NOT DONE Reflexes: NOT DONE Skin: Dry, Normal Color, Warm Lymphatic: NOT DONE Was a procedure done? Was a procedure done?: No EKG EKG : Comments Sinus tach, rate 107, normal intervals, normal axis, normal QRS, nonspecific T change. Differential Dx Considerations may include: Neuropathic pain, plantar fasciitis, arthritis, ACS, RI, chest wall pain, pneumonia, among others X-Ray, Labs, Meds, VS Vital Signs Date Time Temp Pulse Resp B/P (MAP) Pulse Ox O2 Delivery O2 Flow Rate FiO2 04/29/25 12:48 97 16 98 Room Air 04/29/25 12:48 98.3 97 16 146/79 (101) 98 98.3 04/29/25 10:30 107 04/29/25 10:18 97.7 111 20 159/96 99 97.7 Lab Test 04/29/25 12:50 04/29/25 11:30 Range/Units Troponin I High Sensitivity 4 3 L </=54 ng/L White Blood Count 8.2 4.4-10.8 10^3/uL Red Blood Count 4.69 4.5-5.90 10^6/uL Hemoglobin 14.2 13.5-17.5 g/dL Hematocrit 42.3 41.0-53.0 % Mean Corpuscular Volume 90.1 80.0-100.0 fL Mean Corpuscular Hemoglobin 30.2 28.0-32.0 pg Mean Corpuscular Hemoglobin Concent 33.5 32.0-36.0 g/dL Red Cell Distribution Width 13.2 11.8-14.3 % Platelet Count 243 140-450 10^3/uL Mean Platelet Volume 9.0 6.9-10.8 fL Neutrophils (%) (Auto) 57.2 37.0-80.0 % Lymphocytes (%) (Auto) 32.6 10.0-50.0 % Monocytes (%) (Auto) 8.0 0.0-12.0 % Eosinophils (%) (Auto) 1.6 0.0-7.0 % Basophils (%) (Auto) 0.6 0.0-2.0 % Neutrophils # (Auto) 4.7 1.6-8.6 10 ^3/uL Lymphocytes # (Auto) 2.7 0.4-5.4 10 ^3/uL Monocytes # (Auto) 0.7 0-1.3 10 ^3/uL Eosinophils # (Auto) 0.1 0-0.8 10 ^3/uL Basophils # (Auto) 0.1 0-0.2 10 ^3/uL Nucleated Red Blood Cells 0.3 % Sodium Level 137 136-145 mmol/L Potassium Level 4.4 3.5-5.1 mmol/L Chloride Level 104 98-107 mmol/L Carbon Dioxide Level 25 20-31 mmol/L Anion Gap 8 5-15 Blood Urea Nitrogen 15 9-23 mg/dL Creatinine 1.14 0.700-1.30 mg/dL Glomerular Filtration Rate Calc 71 >90 mL/min BUN/Creatinine Ratio 13.2 10.0-20.0 Serum Glucose 261 H 74-106 mg/dL Calcium Level 9.3 8.7-10.4 mg/dL B-Type Natriuretic Peptide 1.75 0-100 pg/mL Current Medications Medications (Trade) Dose Ordered Sig/Jefry Route Start Time Stop Time Status Last Admin Acetaminophen/ Hydrocodone Bitart ([place] 5/325MG Tab) 2 tab ONCE ONCE PO 04/29/25 11:15 04/29/25 11:16 DC 04/29/25 12:26 PROCEDURE(s): LSHD2 - L SHOULDER 2+ VIEW XRAY REASON: pain ORDER NUMBER(s): [id number], ACCESSION NUMBER(s): [id number] EXAM: XY L SHOULDER 2+ VIEW XRAY CLINICAL INDICATION: pain TECHNIQUE: XY L SHOULDER 2+ VIEW XRAY Comparison: XY L HUMERUS XRAY on DOS: 10/05/24 FINDINGS/IMPRESSION: There is no evidence of acute fracture or dislocation. Advanced glenohumeral osteoarthritis with bony cystic degenerative changes. The alignment is anatomical. There is no radiopaque foreign body. EDURE(s): CXRP - CHEST PORTABLE REASON: L chest pain ORDER NUMBER(s): [id number], ACCESSION NUMBER(s): [id number] INDICATION: L chest pain TECHNIQUE: Frontal view of the chest. COMPARISON: XY CHEST PORTABLE on DOS: 02/21/25, XY CHEST PORTABLE on DOS: 02/09/25, XY CHEST XRAY 1 VIEW on DOS: 08/13/24, XY CHEST PORTABLE on DOS: 03/19/24, XY CHEST PORTABLE on DOS: 04/14/23 FINDINGS: . The heart and mediastinal contours are grossly unremarkable. There is no evidence of pleural disease. The lungs are clear. The bony structures of the chest are intact without fracture. IMPRESSION: 1. No evidence of acute disease. X-Ray, Labs, Meds, VS Comment 64-year-old male with history of hypertension, diabetes, dyslipidemia, CKD, chronic bilateral foot pain (probably neuropathy) brought in by self complaining of worsening bilateral foot pain since running out of his [place] a week ago. He also notes left-sided chest pain radiating to the left shoulder for the last 2 days Vitals remarkable for heart rate 111, BP 159/96 Exam remarkable for reproducible pain when palpating the left upper chest wall and left anterior shoulder Rhythm strip independently interpreted by me: Sinus tach, rate 107, no ectopy. Chest x-ray no acute disease Left shoulder x-rays FINDINGS/IMPRESSION: There is no evidence of acute fracture or dislocation. Advanced glenohumeral osteoarthritis with bony cystic degenerative changes. The alignment is anatomical. There is no radiopaque foreign body. CBC, basic metabolic panel, BNP and 2 serial troponins unremarkable for any abnormality of acute significance Patient treated with the following in the ED: [place] 5/325 mg 2 tabs p.o. On re-evaluation, patient states pain has improved. He is ambulating without difficulty. Heart rate is down to normal and other vitals were stable. Hospitalization was considered, however patient had rapid improvement of symptoms with treatment in the ED, and patient states he is primarily here for refill of his [place]. Patient appears stable for discharge with close outpatient follow-up with his primary physician. Rx [place] Time of 1ST Reevaluation: 11:35 Reevaluation 1ST: Unchanged Time of 2ND Reevaluation: 14:29 Reevaluation 2ND: Improved Patient Education/Counseling: Diagnosis, Treatment Family Education/Counseling: No Family Present SEPSIS Sepsis Screen Date sepsis recognized/suspect: Apr 29, 2025 Time Sepsis recognized/suspect: 1017 Recent Procedure: No On Antibiotic Therapy: No Respiratory Rate >20: No Heart Rate >90: Yes Temp<36 C (96.8 F) or >38.3 C: No SBP <90 or MAP <65 mmHG: No New Acute Mental Status Change: No Is the patient on CPAP, BIPAP,: No SEPSIS EXCLUSION NOTE: Sepsis Exclusion Note: Patient presents with SIRS criteria, but the SIRS response is attributed to [pain ], not a suspected infection. Sepsis bundle is not initiated at this time, due to this reason. Further management will focus on the treatment of the above condition (s). Physician Orders Electrocardigram (04/29/25 10:39) Chest Portable (04/29/25 11:12) Urinalysis (04/29/25 11:12) L Shoulder 2+ View Xray (04/29/25 11:12) Troponin-I Hs (04/29/25 14:12) Vital Signs Date Time Temp Pulse Resp B/P (MAP) Pulse Ox O2 Delivery O2 Flow Rate FiO2 04/29/25 12:48 97 16 98 Room Air 04/29/25 12:48 98.3 97 16 146/79 (101) 98 98.3 04/29/25 10:30 107 04/29/25 10:18 97.7 111 20 159/96 99 97.7 Laboratory Tests Test 04/29/25 11:30 White Blood Count 8.2 10^3/uL (4.4-10.8) Medications Medications Dose Ordered Sig/Jefry Route Start Time Stop Time Status Last Admin Dose Admin Acetaminophen/ Hydrocodone Bitart 2 tab ONCE ONCE PO 04/29/25 11:15 04/29/25 11:16 DC 04/29/25 12:26 Departure 1 Departure Time of Disposition: 14:29 Impression: Primary Impression: Chest wall pain Additional Impressions: Arthritis of left shoulder Bilateral foot pain Disposition: 01 HOME / SELF CARE / HOMELESS Condition: Stable Additional Instructions: Your blood tests, including screening test for heart attack and heart failure, were unremarkable. Your chest x-ray was normal. Your left shoulder x-rays showed arthritis. I have enclosed the report below. I have prescribed pain m edication. Follow-up with your primary doctor in 1-2 days. Return to ER for persistent or worsening symptoms. [place] [id number] Ph: [phone] DIAGNOSTIC IMAGING Diagnostic Imaging Report : [id number] Signed PATIENT: PATRICIA GRIGGS JR ACCT: [id number] UNIT: [id number] : 1960 LOC: ER ROOM / BED: / AGE / SEX: 64 / M ADM STATUS: REG ER SERVICE 1112 ORDERING PHYSICIAN: CAMPOS OTERO MD PROCEDURE(s): LSHD2 - L SHOULDER 2+ VIEW XRAY REASON: pain ORDER NUMBER(s): [id number], ACCESSION NUMBER(s): [id number] EXAM: XY L SHOULDER 2+ VIEW XRAY CLINICAL INDICATION: pain TECHNIQUE: XY L SHOULDER 2+ VIEW XRAY Comparison: XY L HUMERUS XRAY on DOS: 10/05/24 FINDINGS/IMPRESSION: There is no evidence of acute fracture or dislocation. Advanced glenohumeral osteoarthritis with bony cystic degenerative changes. The alignment is anatomical. There is no radiopaque foreign body. e-Prescriptions Hydrocodone-Acetaminophen (Hydrocodone Bitartrate/AC 5-325 mg) 1 Tab Tab 1-2 TAB PO Q6HP PRN, #20 TAB Prov: CAMPOS OTERO MD 04/29/25 Discharged With: Self Critical Care Note Critical Care Time?: No Stability Stability form required: No Heart Score Heart Score: Heart Score Response (Comments) Value History N/A 0 EKG N/A 0 Age N/A 0 Risk Factors N/A 0 Troponin N/A 0 Total 0 I personally scribed for CAMPOS OTERO MD ([email or web address]) on 04/29/25 at 11:20. Electronically submitted by Cruz Acevedo ([email or web address]). CAMPOS OTERO MD Apr 29, 2025 11:18
--- NOTE | 2025-04-29 11:48 | DVH ---
INDICATION: L chest pain TECHNIQUE: Frontal view of the chest. COMPARISON: XY CHEST PORTABLE on DOS: 02/21/25, XY CHEST PORTABLE on DOS: 02/09/25, XY CHEST XRAY 1 VIEW on DOS: 08/13/24, XY CHEST PORTABLE on DOS: 03/19/24, XY CHEST PORTABLE on DOS: 04/14/23 FINDINGS: . The heart and mediastinal contours are grossly unremarkable. There is no evidence of pleural disea se. The lungs are clear. The bony structures of the chest are intact without fracture. IMPRESSION: 1. No evidence of acute disease.
--- NOTE | 2025-04-29 11:49 | DVH ---
EXAM: XY L SHOULDER 2+ VIEW XRAY CLINICAL INDICATION: pain TECHNIQUE: XY L SHOULDER 2+ VIEW XRAY Comparison: XY L HUMERUS XRAY on DOS: 10/05/24 FINDINGS/IMPRESSION: There is no evidence of acute fracture or dislocation. Advanced glenohumeral osteoarthritis with bony cystic degenerative changes. The alignment is anatomical. There is no radiopaque foreign body.
[2025-04-29 11:53] LABS: Hematocrit 42.3 % (41.0-53.0); Hemoglobin 14.2 g/dL (13.5-17.5); Mean Corpuscular Hemoglobin 30.2 pg (28.0-32.0); Mean Corpuscular Volume 90.1 fL (80.0-100.0); Nucleated Red Blood Cells % 0.3 %
[2025-04-29 11:54] LABS: Chloride 104 mmol/L (98-107); Potassium 4.4 mmol/L (3.5-5.1); Sodium 137 mmol/L (136-145)
[2025-04-29 11:55] LABS: Anion Gap 8 (5-15); Calcium 9.3 mg/dL (8.7-10.4); Carbon Dioxide 25 mmol/L (20-31)
[2025-04-29 12:00] LABS: BUN/Creatinine Ratio 13.2 (10.0-20.0); Blood Urea Nitrogen 15 mg/dL (9-23); Glucose 261 mg/dL (74-106)
[2025-04-29] MEDS: HYDROcodone-ACET 5/325MG TAB PO ONE (12:26)
[2025-04-29] MEDS ORDERED: HYDR-4798 PO (14:32)
[2025-04-29] MEDS ORDERED: HYDR-4902 PO (14:34)
[2025-04-29 15:26] VITALS: BP 142/98; PULSE 78; RESP 17; TEMP 97.8; O2SAT 97
--- NOTE | 2025-04-29 18:45 | ECG ---
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
== END 2025-04-29 15:43 | disposition home or self-care (01) ==
LOC: ER 10:16
DX: M19.012 Primary osteoarthritis, left shoulder (principal); R07.89 Other chest pain; M79.672 Pain in left foot; E78.5 Hyperlipidemia, unspecified; I13.0 Hypertensive heart and chronic kidney disease with heart failure and stage 1 through stage 4 chronic kidney disease, or unspecified chronic kidney disease; I50.9 Heart failure, unspecified; E11.22 Type 2 diabetes mellitus with diabetic chronic kidney disease; N18.9 Chronic kidney disease, unspecified; F17.210 Nicotine dependence, cigarettes, uncomplicated; F12.90 Cannabis use, unspecified, uncomplicated; F19.90 Other psychoactive substance use, unspecified, uncomplicated; F10.90 Alcohol use, unspecified, uncomplicated; Z79.899 Other long term (current) drug therapy; Z98.890 Other specified postprocedural states; Z79.84 Long term (current) use of oral hypoglycemic drugs; Z79.82 Long term (current) use of aspirin; Z59.00 Homelessness unspecified; Y90.9 Presence of alcohol in blood, level not specified
CPT/HCPCS: 36415; 71045; 73030; 80048; 83880; 84484; 85025; 93005

== ENCOUNTER 2025-07-05 20:06 | Emergency (ER) | payer OTHER, MEDICAID ==
[~2025-07-05] VITALS: Ht 185.4 cm; Wt 106.0 kg
[~2025-07-05 20:06] MED LIST changes: -HYDR-4798 PO; +HYDR-4902 PO
--- NOTE | 2025-07-05 20:47 | ED.PDOC ---
History of Present Illness HPI Comments 64M presents to the ER w prior MHx of CKF, DM, High Lipids, HTN;SHx of Hernia Repair and the c/c of Body Pain. Pt reports on having shoulder, back and knee pain for the past week. Pt notes on being given NORCO before. Social Hx of being homeless. Denies any other symptoms at this time. Denies chills, fever, N/V/D, SOB, CP. Denies any other associated symptom's, modifiers, or recent injuries or sick contact at this time. Chief Complaint: Body Pain Time Seen by MD: 20:45 Primary Care Provider: NONE Reviewed Notes: Nurses Notes, Medications, Allergies Allergies: Coded Allergies: NO KNOWN ALLERGIES (Unverified , 05/24/11) Home Meds Active Scripts Hydrocodone-Acetaminophen (Hydrocodone Bitartrate/AC 5-325 mg) 1 Tab Tab, 1-2 TAB PO Q6HP PRN, #20 TAB Prov:CAMPOS OTERO MD 04/29/25 Atorvastatin Calcium (Lipitor) 20 Mg Tab, 1 TAB PO DAILY for 30 Days, #30 TAB 1 Refill Prov:JOANN CISNEROS MD 04/05/25 Metoprolol Succinate (Metoprolol Succinate Er) 25 Mg Tab, 1 TAB PO DAILY, #30 TAB 5 Refills Prov:JOANN CISNEROS MD 04/05/25 Lisinopril (Lisinopril) 20 Mg Tab, 1 TAB PO DAILY, #30 TAB 5 Refills Prov:JOANN CISNEROS MD 04/05/25 Metformin HCl (Metformin Hydrochloride) 1,000 Mg Tab, 1000 MG PO BID, #60 TAB 3 Refills Prov:JOANN CISNEROS MD 04/05/25 Blood Glucose Monitoring Suppl (D-Care Glucometer Kit/Glu W/Device) 1 Kit Kit, KIT XX, #1 Prov:JOANN CISNEROS MD 08/17/24 Aspirin (Aspirin Low Dose) 81 Mg Tab, 81 MG PO DAILY, #30 TAB Prov:BEVERLEY HOSKINS MD 03/30/23 Information Source: Patient Mode of Arrival: Ambulatory Severity: Moderate Timing: Days Duration: Since onset, Days Prehospital treatment: None Past Medical History PAST MEDICAL HISTORY: CKF, DM, High Lipids, HTN Surgical History: Hernia Repair Family History Family History: Reviewed,noncontributory to illness, Unknown Social History Smoker: Unknown Alcohol: Unknown Drugs: Unknown Lives In: Homeless Constitutional: reports: others (body pain); denies: chills, diaphoresis, fatigue, fever, malaise, sweats, weakness EENTM: denies: blurred vision, double vision, ear bleeding, ear discharge, ear drainage, ear pain, ear ringing, eye pain, eye redness, hearing loss, mouth pain, mouth swelling, nasal discharge, nose bleeding, nose congestion, nose pain, photophobia, tearing, throat pain, throat swelling, voice changes, others Respiratory: denies: cough, hemoptysis, orthopnea, SOB at rest, shortness of breath, SOB with excertion, stridor, wheezing, others Cardiovascular: denies: chest pain, dizzy spells, diaphoresis, Dyspnea on exertion, edema, irregular heart beat, left arm pain, lightheadedness, palpitations, PND, syncope, others Gastrointestinal: denies: abdomen distended, abdominal pain, blood streaked bowels, constipated, diarrhea, dysphagia, difficulty swallowing, hematemesis, melena, nausea, poor appetite, poor fluid intake, rectal bleeding, rectal pain, vomiting, others Genitourinary: denies: burning, dysuria, flank pain, frequency, hematuria, incontinence, penile discharge, penile sore, pain, testicle pain, testicle sw elling, urgency, others Neurological: denies: dizziness, fainting, headache, left sided numbness, left sided weakness, numbness, paresthesia, pre-existing deficit, right sided numbness, right sided weakness, seizure, speech problems, tingling, tremors, weakness, others Musculoskeletal: denies: back pain, gout, joint pain, joint swelling, muscle pain, muscle stiffness, neck pain, others Integumetry: denies: bruises, change in color, change in hair/nails, dryness, laceration, lesions, lumps, rash, wounds, others Allergic/Immunocompromised: denies: Difficulty Healing, Frequent Infections, Hives, Itching, others Hematologic/Lymphatic: denies: anemia, blood clots, easy bleeding, easy bruising, swollen glands, others Endocrine: denies: excessive hunger, excessive sweating, excessive thirst, excessive urination, flushing, intolerance to cold, intolerance to heat, unexplained weight gain, unexplained weight loss, others Psychiatric: denies: anxiety, bipolar disorder, depression, hopeless, panic disorder, schizophrenia, sleepless, suicidal, others All Other Systems: Reviewed and Negative Physical Exam General Appearance: No Apparent Distress, Normal HEENT: Normal ENT Inspection, Pharynx Normal, TMs Normal Neck: Full Range of Motion, Non-Tender, Normal, Normal Inspection Respiratory: Chest Non-Tender, Lungs Clear, No Accessory Muscle Use, No Respiratory Distress, Normal Breath Sounds Cardiovascular: No Edema, No JVD, No Murmur, No Gallop, Normal Peripheral Pulses, Regular Rate/Rhythm Breast Exam: Deferred Gastrointestinal: No Organomegaly, Non Tender, No Pulsatile Mass, Normal Bowel Sounds, Soft Genitalia: Deferred Pelvic: Deferred Rectal: Deferred Extremities: No calf tenderness, Normal capillary refill, Normal inspection, No rmal range of motion, Non-tender, No pedal edema Musculoskeletal : Apperance: Normal Neurologic: Alert, control valve technician II-XII nml as Tested, No Motor Deficits, Normal Affect, Normal Mood, No Sensory Deficits Cerebellar Function: Normal Reflexes: Normal Skin: Dry, Normal Color, Warm Lymphatic: No Adenopathy Was a procedure done? Was a procedure done?: No Differential Dx Considerations may include: Hypertension X-Ray, Labs, Meds, VS Vital Signs Date Time Temp Pulse Resp B/P (MAP) Pulse Ox O2 Delivery O2 Flow Rate FiO2 07/05/25 21:00 Room Air* 0 21 07/05/25 20:58 98.0 104 18 176/107 (130) 96 98.0 07/05/25 20:07 97.7 115 16 172/119 98 97.7 Lab Test 07/05/25 20:48 Range/Units White Blood Count 8.9 4.4-10.8 10^3/uL Red Blood Count 4.81 4.5-5.90 10^6/uL Hemoglobin 14.3 13.5-17.5 g/dL Hematocrit 42.8 41.0-53.0 % Mean Corpuscular Volume 89.1 80.0-100.0 fL Mean Corpuscular Hemoglobin 29.7 28.0-32.0 pg Mean Corpuscular Hemoglobin Concent 33.3 32.0-36.0 g/dL Red Cell Distribution Width 12.8 11.8-14.3 % Platelet Count 252 140-450 10^3/uL Mean Platelet Volume 9.1 6.9-10.8 fL Neutrophils (%) (Auto) 47.9 37.0-80.0 % Lymphocytes (%) (Auto) 41.9 10.0-50.0 % Monocytes (%) (Auto) 8.1 0.0-12.0 % Eosinophils (%) (Auto) 1.3 0.0-7.0 % Basophils (%) (Auto) 0.8 0.0-2.0 % Neutrophils # (Auto) 4.3 1.6-8.6 10 ^3/uL Lymphocytes # (Auto) 3.7 0.4-5.4 10 ^3/uL Monocytes # (Auto) 0.7 0-1.3 10 ^3/uL Eosinophils # (Auto) 0.1 0-0.8 10 ^3/uL Basophils # (Auto) 0.1 0-0.2 10 ^3/uL Nucleated Red Blood Cells 0.2 % Sodium Level 142 136-145 mmol/L Potassium Level 4.3 3.5-5.1 mmol/L Chloride Level 107 98-107 mmol/L Carbon Dioxide Level 26 20-31 mmol/L Anion Gap 9 5-15 Blood Urea Nitrogen 14 9-23 mg/dL Creatinine 1.41 H 0.700-1.30 mg/dL Glomerular Filtration Rate Calc 55 >90 mL/min BUN/Creatinine Ratio 9.9 L 10.0-20.0 Serum Glucose 163 H 74-106 mg/dL Calcium Level 9.5 8.7-10.4 mg/dL Current Medications Medications (Trade) Dose Ordered Sig/Jefry Route Start Time Stop Time Status Last Admin Acetaminophen/ Hydrocodone Bitart (Baldwin 5/325MG Tab) 1 tab ONCE ONCE PO 07/05/25 20:45 07/05/25 20:46 DC 07/05/25 20:57 X-Ray, Labs, Meds, VS Comment Patient AMA Patient told treatment nurse that he is [employer] was outside and then he would just come back tomorrow. Nurse explained to patient risk of leaving and risk of d nolan due to his blood pressure and his pulse Patient was witnessed leaving the emergency department. Time of 1ST Reevaluation: 21:15 Reevaluation 1ST: Unchanged Patient Education/Counseling: Diagnosis, Treatment, Prognosis Family Education/Counseling: No Family Present SEPSIS Sepsis Screen Date sepsis recognized/suspect: Jul 05, 2025 Time Sepsis recognized/suspect: 2006 Recent Procedure: No On Antibiotic Therapy: No Respiratory Rate >20: No Heart Rate >90: Yes Temp<36 C (96.8 F) or >38.3 C: No SBP <90 or MAP <65 mmHG: No New Acute Mental Status Change: No Is the patient on CPAP, BIPAP,: No Physician Orders Urinalysis (07/05/25 20:40) Vital Signs Date Time Temp Pulse Resp B/P (MAP) Pulse Ox O2 Delivery O2 Flow Rate FiO2 07/05/25 21:00 Room Air* 0 21 07/05/25 20:58 98.0 104 18 176/107 (130) 96 98.0 07/05/25 20:07 97.7 115 16 172/119 98 97.7 Laboratory Tests Test 07/05/25 20:48 White Blood Count 8.9 10^3/uL (4.4-10.8) Medications Medications Dose Ordered Sig/Jefry Route Start Time Stop Time Status Last Admin Dose Admin Acetaminophen/ Hydrocodone Bitart 1 tab ONCE ONCE PO 07/05/25 20:45 07/05/25 20:46 DC 07/05/25 20:57 Departure 1 Departure Time of Disposition: 22:45 Impression: Primary Impression: Tachycardia Disposition: 07 LEFT AGAINST MEDICAL ADVICE Condition: Stable Critical Care Note Critical Care Time?: No Stability Stability form required: No Heart Score Heart Score: Heart Score Response (Comments) Value History N/A 0 EKG N/A 0 Age N/A 0 Risk Factors N/A 0 Troponin N/A 0 Total 0 I personally scribed for OFELIA MARIE ([email or web address]) on 07/05/25 at 20:47. Electronically submitted by Samir Morillo ([email or web address]). OFELIA MARIE Jul 05, 2025 20:47
[2025-07-05] MEDS: HYDROcodone-ACET 5/325MG TAB PO ONE (20:57)
[2025-07-05 20:58] VITALS: BP 176/107; PULSE 104; RESP 18; TEMP 98; O2SAT 96
[2025-07-05 20:58] LABS: Hematocrit 42.8 % (41.0-53.0); Hemoglobin 14.3 g/dL (13.5-17.5); Mean Corpuscular Hemoglobin 29.7 pg (28.0-32.0); Mean Corpuscular Volume 89.1 fL (80.0-100.0); Nucleated Red Blood Cells % 0.2 %
[2025-07-05 21:08] LABS: Chloride 107 mmol/L (98-107); Potassium 4.3 mmol/L (3.5-5.1); Sodium 142 mmol/L (136-145)
[2025-07-05 21:09] LABS: Anion Gap 9 (5-15); Carbon Dioxide 26 mmol/L (20-31)
[2025-07-05 21:10] LABS: Calcium 9.5 mg/dL (8.7-10.4)
[2025-07-05 21:14] LABS: BUN/Creatinine Ratio 9.9 (10.0-20.0); Blood Urea Nitrogen 14 mg/dL (9-23)
[2025-07-05 21:19] LABS: Glucose 163 mg/dL (74-106)
== END 2025-07-05 22:29 | disposition left against medical advice (07) ==
LOC: ER 20:06
DX: R00.0 Tachycardia, unspecified (principal); I12.9 Hypertensive chronic kidney disease with stage 1 through stage 4 chronic kidney disease, or unspecified chronic kidney disease; E11.22 Type 2 diabetes mellitus with diabetic chronic kidney disease; N18.9 Chronic kidney disease, unspecified; E78.5 Hyperlipidemia, unspecified; Z79.899 Other long term (current) drug therapy; Z98.890 Other specified postprocedural states; Z79.82 Long term (current) use of aspirin; Z59.00 Homelessness unspecified; Z79.84 Long term (current) use of oral hypoglycemic drugs
CPT/HCPCS: 36415; 80048; 85025

== ENCOUNTER 2025-08-17 19:59 | Inpatient (IN) | payer OTHER, MEDICAID ==
[~2025-08-17] VITALS: Ht 185.4 cm; Wt 100.0 kg
--- NOTE | 2025-08-17 20:52 | ED.PDOC ---
Musculoskeletal HPI Comments HPI: 64 y/o M, with PMHx of polysubstance abuse, HTN, HLD, DM, and CKF presents to the ED for CC of abscess. Patient states, he has an abscess to his right hand 3rd phalanx which ruptured today (08/17/25). Patient reports, being seen at [facility] for SS x1week ago and being told to have possible MRSA in the wound; patient phill shirley left the hospital AMA and was unable to receive Abx. 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 Upon arrival to the ED, patient is Tachycardic with a HR of 131bpm. At this time patient denies fever, chills, weakness, or chest pain. PMHx: HTN, HLD, DM, CKF SHX: RIGHT WRIST Vitals: T: 98.0 HR: 131 RR: 16 BP: O2: Social: PCP, METHAMPHETAMINE, ETOH, CIGARETTES Rx: UNKNOWN Allergies: NKA [place]: R HAND PAIN SWELLING DRAINAGE, POSS ABSCESS. Least one-week. Polysubstance abuse, homelessness, alcohol abuse. Currently on penicillin that was started yesterday from [place]. Patient does not take any of his medications. HPI: Poor Historian. Past Medical History: Past Surgical History: REVIEW OF SYSTEMS: CONSTITUTIONAL: Denies acute: fever, diaphoresis, chills, generalized weakness. HEAD: Denies acute: headache, photophobia Eyes: Denies acute: Double vision, vision loss, eye pain, eye discharge. EARS: Denies acute: tinnitus, hearing loss, ear discharge, ear pain, THROAT: Denies acute: sore throat, swelling, difficulty swallowing , pain with swallowing, change in voice. NECK: Denies acute: neck pain, neck swelling, stiff neck. HEART: Denies acute : chest pain, palpitations, LUNGS: Denies acute: SOB, wheezing, cough, hemoptysis ABDOMEN: Denies acute: abdominal pain, Nausea, Vomiting, diarrhea, melena , hematemesis, hematochezia SKIN: Denies acute: rash, redness, lesions, itchiness. EXTREMITIES: Denies acute: calf pain, numbness, tingling, weakness, denies pain in extremity. Denies acute: Low back pain. Neuro: Denies acute: focal neurological deficit, motor or sensory focal neurological deficit, tremors, seizure like activity, confusion, dizziness, change in mental status, loss of bowel or bladder function, cauda equina like symptoms. : Denies acute: dysuria, hematuria, flank pain, increase in urinary frequency. PSYCH: Denies acute: hallucination, suicidal ideation, homicidal ideation. PHYSICAL EXAM: General: ----mild----acute distress, awake and alert. Head: normocephalic, atraumatic. No raccoon's eyes, no rivera sign. Neck: supple, trachea is midline, no swelling. Throat: Normal phonation. Eyes:, no erythema, no purulent discharge, no proptosis, no icterus. Heart: regular tachycardia, no significant murmur appreciated. Lungs: no apparent respiratory distress, Able to speak in full sentences. No wheezing, no rhonchi, no crackles. No stridors Clear to auscultation bilaterally. Abdomen: non tender to palpation, non distended, soft, no guarding, no rebound, + bowel sounds. Neuro: Awake, Alert, oriented to name, self, situation, follows commands GCS=15. Speech is normal. Skin: no petechia, no purpura, no cyanosis, non-pale, not jaundice. Lower extremities: --no - Pitting edema no deformity, no focal swelling, no calf TTP. Makes eye contact. moves all four extremities. Face: no apparent facial droop. Right hand: Noted in the dorsal part of the base of the 3rd digit and involving the 3rd digit swelling erythema and tenderness to palpation and purulent discharge. Patient is neurovascularly intact in the affected extremity. Ambulating in the ED independently. ED COURSE: DISCLAIMER: This medical document was created using an electronic medical record system with voice recognition software and computerized dictation system. Although this document has been carefully reviewed, there might still be some phonetic and typographical errors. Occasional wrong-word or "sound-alike" substitutions may have occurred due to the inherent limitations of voice recognition software. Th tori areas are purely typographical due to imperfections of the software programs and do not reflect any compromise in the patient's medical care. Please read the chart carefully and recognize, using context, where these substitutions have occurred. Chief Complaint: Abscess Time Seen by MD: 20:30 Primary Care Provider: NONE Reviewed Notes: Nurses Notes, Medications, Allergies Allergies: Coded Allergies: NO KNOWN ALLERGIES (Unverified , 05/24/11) Home Meds Active Scripts Hydrocodone-Acetaminophen (Hydrocodone Bitartrate/AC 5-325 mg) 1 Tab Tab, 1-2 TAB PO Q6HP PRN, #20 TAB Prov:CAMPOS OTERO MD 04/29/25 Atorvastatin Calcium (Lipitor) 20 Mg Tab, 1 TAB PO DAILY for 30 Days, #30 TAB 1 Refill Prov:JOANN CISNEROS MD 04/05/25 Metoprolol Succinate (Metoprolol Succinate Er) 25 Mg Tab, 1 TAB PO DAILY, #30 TAB 5 Refills Prov:JOANN CISNEROS MD 04/05/25 Lisinopril (Lisinopril) 20 Mg Tab, 1 TAB PO DAILY, #30 TAB 5 Refills Prov:JOANN CISNEROS MD 04/05/25 Metformin HCl (Metformin Hydrochloride) 1,000 Mg Tab, 1000 MG PO BID, #60 TAB 3 Refills Prov:JOANN CISNEROS MD 04/05/25 Blood Glucose Monitoring Suppl (D-Care Glucometer Kit/Glu W/Device) 1 Kit Kit, KIT XX, #1 Prov:JOANN CISNEROS MD 08/17/24 Aspirin (Aspirin Low Dose) 81 Mg Tab, 81 MG PO DAILY, #30 TAB Prov:BEVERLEY HOSKINS MD 03/30/23 Information Source: Patient Mode of Arrival: Ambulatory Location: Right Extremity Location: Finger 3, Hand Timing: Days Prehospital treatment: None Severity: Moderate Able to Move Extremity: Yes Pain: Moderate Circumstances: Unknown Symptoms: Swelling, Pain Associated signs and symptoms: Hand pain Was a procedure done? Was a procedure done?: No Differential Diagnosis EXT Differential Diagnosis: Cellulitis, Deep Vein Thrombosis, Compartment Syndrome, Septic, Neurovascular injury, Arthritis, Other (abscess) X-Ray, Labs, Meds, VS Vital Signs Date Time Temp Pulse Resp B/P (MAP) Pulse Ox O2 Delivery O2 Flow Rate FiO2 08/17/25 21:26 97.9 125 18 136/107 (117) 97 97.9 08/17/25 21:26 125 18 97 Room Air 08/17/25 20:01 98.0 131 16 110/45 95 98.0 Lab Test 08/17/25 21:05 08/17/25 20:10 Range/Units Urine Color Light-yellow Yellow Urine Clarity Clear Clear Urine pH 5.5 5.0-9.0 Urine Specific [place] 1.036 H 1.001-1.035 Urine Protein Negative Negative Urine Ketones Negative Negative Urine Blood Negative Negative /uL Urine Nitrite Negative Negative Urine Bilirubin Negative Negative Urine Urobilinogen Normal Negative mg/dL Urine Leukocyte Esterase Negative Negative /uL Urine RBC None seen 0 - 3 /hpf Urine Microscopic WBC < 1 0-3 /HPF Urine Squamous Epithelial Cells None seen <5 /hpf Urine Bacteria None seen None Seen /hpf Urine Glucose 4+ H Normal mg/dL White Blood Count 11.3 H 4.4-10.8 10^3/uL Red Blood Count 4.61 4.5-5.90 10^6/uL Hemoglobin 13.5 13.5-17.5 g/dL Hematocrit 40.7 L 41.0-53.0 % Mean Corpuscular Volume 88.3 80.0-100.0 fL Mean Corpuscular Hemoglobin 29.3 28.0-32.0 pg Mean Corpuscular Hemoglobin Concent 33.2 32.0-36.0 g/dL Red Cell Distribution Width 13.0 11.8-14.3 % Platelet Count 331 140-450 10^3/uL Mean Platelet Volume 9.2 6.9-10.8 fL Neutrophils (%) (Auto) 68.2 37.0-80.0 % Lymphocytes (%) (Auto) 21.8 10.0-50.0 % Monocytes (%) (Auto) 8.8 0.0-12.0 % Eosinophils (%) (Auto) 0.4 0.0-7.0 % Basophils (%) (Auto) 0.8 0.0-2.0 % Neutrophils # (Auto) 7.7 1.6-8.6 10 ^3/uL Lymphocytes # (Auto) 2.5 0.4-5.4 10 ^3/uL Monocytes # (Auto) 1.0 0-1.3 10 ^3/uL Eosinophils # (Auto) 0 0-0.8 10 ^3/uL Basophils # (Auto) 0.1 0-0.2 10 ^3/uL Nucleated Red Blood Cells 0.0 % Sodium Level 131 L 136-145 mmol/L Potassium Level 4.0 3.5-5.1 mmol/L Chloride Level 98 98-107 mmol/L Carbon Dioxide Level 24 20-31 mmol/L Anion Gap 9 5-15 Blood Urea Nitrogen 15 9-23 mg/dL Creatinine 1.33 H 0.700-1.30 mg/dL Glomerular Filtration Rate Calc 59 >90 mL/min BUN/Creatinine Ratio 11.3 10.0-20.0 Serum Glucose 434 *H 74-106 mg/dL Lactic Acid Level 1.9 0.4-2.0 mmol/L Calcium Level 9.9 8.7-10.4 mg/dL Total Bilirubin 0.4 0.2-1.0 mg/dL Aspartate Amino Transferase (AST) 12 L 13-40 U/L Alanine Aminotransferase (ALT) 21 7-40 U/L Alkaline Phosphatase 119 H 46-116 U/L C-Reactive Protein High Sensitivity 8.95 H <1.0 mg/dL Total Protein 8.4 H 5.7-8.2 g/dL Albumin 4.3 3.2-4.8 g/dL Current Medications Medications (Trade) Dose Ordered Sig/Jefry Route Start Time Stop Time Status Last Admin Sodium Chloride 1,000 ml @ 1,000 mls/hr Q1H ONCE IV 08/17/25 21:00 08/17/25 21:59 DC 08/17/25 21:40 Vancomycin HCl 250 ml @ 250 mls/hr ONCE ONCE IV 08/17/25 21:00 08/17/25 21:59 DC 08/18/25 03:00 Piperacillin Sod/ Tazobactam Sod 100 ml @ 100 mls/hr ONCE ONCE IV 08/17/25 21:00 08/17/25 21:59 DC 08/18/25 04:35 Acetaminophen/ Hydrocodone Bitart ([place] 5/325MG Tab) 1 tab ONCE ONCE PO 08/18/25 00:00 08/18/25 00:01 DC 08/18/25 04:[address] [address] Ph: [phone] DIAGNOSTIC IMAGING Diagnostic Imaging Report : [id number] Signed PATIENT: ANSONREREPATRICIA JR ACCT: [id number] UNIT: [id number] : 1960 LOC: OVERFLOW ROOM / BED: 101-ER / A AGE / SEX: 64 / M ADM STATUS: ADM IN SERVICE 47 ORDERING PHYSICIAN: RAJEEV GARCÍA DO PROCEDURE(s): RHNCT - CT R HAND WO CONTRAST REASON: pain swelling ORDER NUMBER(s): [id number], ACCESSION NUMBER(s): [id number] INDICATION: pain swelling COMPARISON: CT CT R HAND WO CONTRAST on DOS: 08/11/25 TECHNIQUE: CT of the right hand was performed with contrast. Volume transverse images were obtained and reconstructed in multiple planes using bone and soft tissue algorithms. CONTRAST: None Radiation Dose Information: CTDI volume is 7.75 mGy. Dose-length product is 286.93 mGy*cm FINDINGS: Extensive soft tissue swelling and superficial skin irregularity along the dorsal aspect of the 3rd digit, including blistering appearance and small areas of tissue loss, which extends to the level of the wrist. No evidence of a drainable fluid collection. No obvious large tendon sheath effusion. Vascular structures are unremarkable. Polyarticular arthropathy with extensive subchondral cystic change of the radiocarpal, distal radioulnar, and 2nd-4th metacarpophalangeal joints. No obvious large joint effusion. No evidence of periostitis or acute appearing osseous erosion. Suspected chronic fracture deformity of the 1st proximal phalanx. Muscles and tendons are unremarkable. IMPRESSION: 1. Soft tissue inflammation along the entire dorsal 3rd digit extending to the level of the wrist, without evidence of a drainable fluid collection. 2. 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 Although no specific CT features of infectious or inflammatory arthropathy are present, outpatient follow-up is recommended including updated radiographs. All CT scans at this medical facility are performed using dose modulation techniques as appropriate to a performed exam including the following: Automated exposure control was utilized; adjustment of the MA and/or KV according to patient size; and use of iterative reconstruction technique. ATED BY: RENETTA QUINTERO MD DICTATED DATE/TIME: 08/18/25154 SIGNED BY: RENETTA QUINTERO MD SIGNED DATE/TIME: 08/18/25154 CC: [address] [place] [address] [place] - [address] Ph: [phone] DIAGNOSTIC IMAGING Diagnostic Imaging Report : [id number] Signed PATIENT: PATRICIA GRIGGS JR ACCT: [id number] UNIT: [id number] : 1960 LOC: OVERFLOW ROOM / BED: [address] [place] [address] A AGE / SEX: 64 / M ADM STATUS: ADM IN SERVICE 2 ORDERING PHYSICIAN: RAJEEV GARCÍA DO PROCEDURE(s): RHAN - R HAND 3 VIEW XRAY REASON: pain swelling ORDER NUMBER(s): [id number], ACCESSION NUMBER(s): [id number] CLINICAL INDICATION: pain swelling TECHNIQUE: 3 views XY R HAND 3 VIEW XRAY COMPARISON: Previous studies CT hand FINDINGS: No acute fracture. Chronic appearing deformities of the 1st proximal phalanx and 2nd metacarpal neck. Polyarticular degenerative change including prominent subchondral cysts of the 2nd-4th metacarpophalangeal joints as well as complete radiocarpal joint space loss with widening of the scapholunate interval. No obvious erosion or periostitis. Soft tissue swelling of the middle digit and dorsal hand/wrist. IMPRESSION: 1. Third digit and dorsal hand/wrist soft tissue swelling. No radiographic findings of right hand osteomyelitis. 2. Polyarticular arthropathy as above. Widening of the scapholunate interval suggest developing SLAC wrist. ATED BY: RENETTA QUINTERO MD DICTATED DATE/TIME: 08/18/25299 SIGNED BY: RENETTA QUINTERO MD SIGNED DATE/TIME: 08/18/25299 CC: [address] [address] Ph: [phone] DIAGNOSTIC IMAGING Diagnostic Imaging Report : [id number] Signed PATIENT: PATRICIA GRIGGS JR ACCT: [id number] UNIT: [id number] : 1960 LOC: OVERFLOW ROOM / BED: [address] [place] [address] A AGE / SEX: 64 / M ADM STATUS: ADM IN SERVICE 2 ORDERING PHYSICIAN: RAJEEV GARCÍA DO PROCEDURE(s): RHAN - R HAND 3 VIEW XRAY REASON: pain swelling ORDER NUMBER(s): [id number], ACCESSION NUMBER(s): [id number] CLINICAL INDICATION: pain swelling TECHNIQUE: 3 views XY R HAND 3 VIEW XRAY COMPARISON: Previous studies CT hand FINDINGS: No acute fracture. Chronic appearing deformities of the 1st proximal phalanx and 2nd metacarpal neck. Polyarticular degenerative change including prominent subchondral cysts of the 2nd-4th metacarpophalangeal joints as well as complete radiocarpal joint space loss with widening of the scapholunate interval. No obvious erosion or periostitis. Soft tissue swelling of the middle digit and dorsal hand/wrist. IMPRESSION: 1. Third digit and dorsal hand/wrist soft tissue swelling. No radiographic findings of right hand osteomyelitis. 2. Polyarticular arthropathy as above. Widening of the scapholunate interval suggest developing SLAC wrist. ATED BY: RENETTA QUINTERO MD DICTATED DATE/TIME: 08/18/25299 SIGNED BY: RENETTA QUINTERO MD SIGNED DATE/TIME: 08/18/25299 CC: Time of 1ST Reevaluation: 21:00 Reevaluation 1ST: Unchanged Patient Education/Counseling: Diagnosis, Treatment Family Education/Counseling: No Family Present Comments MDM: patient presented with the above HPI.--hand swelling possible abscess----workup was initiated. patient was found with the above mentioned diagnosis. the following medications were ordered: please refer to order lists of meds and tests obtained by myself Dr. García. Patient ED course and VS have been stabilized. Patient has been reassessed in the ED and remained in a stable condition. Pertinent incidental findings were discussed with the patient and/or family. Patient/family voices understanding and is agreeable with plan. Patient has been observed in the ED adequate length of time to insure improvement/stability. Escalation of care considered: Consideration of escalation to observation or admission Patient was given vancomycin and Zosyn and cultures and fluids and pain medications. CT scan of the hand was obtained. No loculated fluid collection that would require I and D. Patient was ADMITTED to the medicine team for further evaluation and treatment o f their presentation. All the reports of any imaging studies that were ordered by myself were reviewed by myself. Sepsis Sepsis Reasesment Focused Exam Orders: Laboratory Tests 08/17/25 20:10: Lactic Acid Level 1.9 Departure 1 Departure Time of Disposition: 23:46 Impression: Primary Impression: Abscess of right hand Additional Impressions: Noncompliance with medication regimen Polysubstance abuse Diabetes mellitus with hyperglycemia Disposition: ADMITTED INPATIENT Admit to: Tele Condition: Guarded Discharged With: Self Critical Care Note Critical Care Time?: Yes (45 min-critical care time only) Critical care comment: Due to a high probability of clinically significant, life threatening deteriorat ion, the patient required my highest level of preparedness to intervene emergently and I personally spent this critical care time directly and personally managing the patient. This critical care time included obtaining a history; examining the patient; pulse oximetry; ordering and review of studies; arranging urgent treatment with development of a management plan; evaluation of patient's response to treatment; frequent reassessment; and, discussions with other providers. This critical care time was performed to assess and manage the high probability of imminent, life-threatening deterioration that could result in multi-organ failure. It was exclusive of separately billable procedures and treating other patients and teaching time. Please see my other sections and the rest of the note for further information on patient assessment and treatment. I personally scribed for RAJEEV GARCÍA DO ([email or web address]) on 08/17/25 at 20:52. Electronically submitted by Kitty Romero ([email or web address]). I personally scribed for RAJEEV GARCÍA DO ([email or web address]) on 08/18/25 at 02:13. Electronically submitted by Mike Gonzalez ([email or web address]). I personally scribed for RAJEEV GARCÍA DO ([email or web address]) on 08/18/25 at 05:08. Electronically submitted by Mike Gonzalez ([email or web address]). RAJEEV GARCÍA DO Aug 17, 2025 20:52
[2025-08-17 20:55] LABS: Hematocrit 40.7 % (41.0-53.0); Hemoglobin 13.5 g/dL (13.5-17.5); Mean Corpuscular Hemoglobin 29.3 pg (28.0-32.0); Mean Corpuscular Volume 88.3 fL (80.0-100.0); Nucleated Red Blood Cells % 0.0 %
[2025-08-17] MEDS ORDERED: SODIUM CHLORIDE 0.9% 1,000 ML IV ONE (21:00)
[2025-08-17 21:07] LABS: Alanine Aminotransferase 21 U/L (7-40); Albumin 4.3 g/dL (3.2-4.8); Anion Gap 9 (5-15); BUN/Creatinine Ratio 11.3 (10.0-20.0); Blood Urea Nitrogen 15 mg/dL (9-23); Calcium 9.9 mg/dL (8.7-10.4); Carbon Dioxide 24 mmol/L (20-31); Potassium 4.0 mmol/L (3.5-5.1)
[2025-08-17 21:08] LABS: Bilirubin, Total 0.4 mg/dL (0.2-1.0)
[2025-08-17 21:27] LABS: Alkaline Phosphatase 119 U/L (46-116); Chloride 98 mmol/L (98-107); Sodium 131 mmol/L (136-145); Total Protein 8.4 g/dL (5.7-8.2)
[2025-08-17 21:37] LABS: Glucose 434 mg/dL (74-106)
[2025-08-17] MEDS: SODIUM CHLORIDE 0.9% 1,000 ML IV ONE (21:40)
[2025-08-17 22:58] LABS: Urine Protein, UAD Negative (Negative)
[2025-08-18] MEDS ORDERED: HYDROcodone-ACET 5/325MG TAB PO PRN (00:45)
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
[2025-08-18] MEDS ORDERED: DEXTROSE (50%) 50ML SYRG IV PRN (01:00)
--- NOTE | 2025-08-18 01:57 | DVH ---
INDICATION: pain swelling COMPARISON: CT CT R HAND WO CONTRAST on DOS: 08/11/25 TECHNIQUE: CT of the right hand was performed with contrast. Volume transverse images were obtained and reconstructed in multiple planes using bone and soft tissue algorithms. CONTRAST: None Radiation Dose Information: CTDI volume is 7.75 mGy. Dose-length product is 286.93 mGy*cm FINDINGS: Extensive soft tissue swelling and superficial skin irregularity along the dorsal aspect of the 3rd digit, including blistering appearance and small areas of tissue loss, which extends to the level of the wrist. No evidence of a drainable fluid collection. No obvious large tendon sheath effusion. Vascular structures are unremarkable. Polyarticular arthropathy with extensive subchondral cystic change of the radiocarpal, distal radioulnar, and 2nd-4th metacarpophalangeal joints. No obvious large joint effusion. No evidence of periostitis or acute appearing osseous erosion. Suspected chronic fracture deformity of the 1st proximal pha lanx. Muscles and tendons are unremarkable. IMPRESSION: 1. Soft tissue inflammation along the entire dorsal 3rd digit extending to the level of the wrist, without evidence of a drainable fluid collection. 2. 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 Although no specific CT features of infectious or inflammatory arthropathy are present, outpatient follow-up is recommended including updated radiographs. All CT scans at this medical facility are performed using dose modulation techniques as appropriate to a performed exam including the following: Automated exposure control was utilized; adjustment of the MA and/or KV according to patient size; and use of iterative reconstruction technique.
[2025-08-18] MEDS: VANCOMYCIN 1GM/250ML KIT 250 ML IV ONE (03:00)
--- NOTE | 2025-08-18 03:03 | DVH ---
CLINICAL INDICATION: pain swelling TECHNIQUE: 3 views XY R HAND 3 VIEW XRAY COMPARISON: Previous studies CT hand FINDINGS: No acute fracture. Chronic appearing deformities of the 1st proximal phalanx and 2nd metacarpal neck. Polyarticular degenerative change including prominent subchondral cysts of the 2nd-4th metacarpophalangeal joints as well as complete radiocarpal joint space loss with widening of the scapholunate interval. No obvious erosion or periostitis. Soft tissue swelling of the middle digit and dorsal hand/wrist. IMPRESSION: 1. Third digit and dorsal hand/wrist soft tissue swelling. No radiographic findings of right hand osteomyelitis. 2. Polyarticular arthropathy as above. Widening of the scapholunate interval suggest developing SLAC wrist.
[2025-08-18] MEDS: IOHEXOL 300 MG/ML 100ML BOTTLE IJ ONE (03:23)
[2025-08-18] MEDS: LACTULOSE 20Gm/30ML SOLN PO ONE (04:34)
[2025-08-18] MEDS: HYDROcodone-ACET 5/325MG TAB PO ONE (04:34)
[2025-08-18] MEDS: PIPERACILLIN-TAZOB 3.375GM 100 ML IV ONE (04:35)
[2025-08-18] MEDS ORDERED: VANCOMYCIN PER PHARMACY 0 MG IV SCH (05:30)
[2025-08-18] MEDS: ACCU-CHEK COMFORT CURVE STRIP VI SCH (07:24)
[2025-08-18 07:25] VITALS: BP 140/95; PULSE 92; RESP 20; TEMP 97.9; O2SAT 96
[2025-08-18] MEDS: InsuLIN REG 1unit/0.01ml Soln (100units/ml) SC SCH (07:30)
[2025-08-18] MEDS: INSULIN LANTUS (GLARGINE) 1 /0.01ml (100units/ml) SC SCH (07:30)
[2025-08-18] MEDS: ENOXAPARIN SOD 40 MG/0.4 ML SYRINGE SC SCH (07:31)
[2025-08-18] MEDS: LACTULOSE 20Gm/30ML SOLN PO SCH (07:31)
--- NOTE | 2025-08-18 16:00 | DVHDS2 ---
Discharge Summary Date of Admission Aug 18, 2025 at 00:42 Date of Discharge: Aug 18, 2025 Labs/Diagnostic Data: Laboratory Results Test 08/18/25 07:23 08/18/25 06:42 08/17/25 21:05 08/17/25 20:10 POC Glucose 383 mg/dl (70-106) Creatinine 1.40 mg/dL (0.700-1.30) Glomerular Filtration Rate Calc 56 mL/min (>90) Hemoglobin A1c 12.9 % A1C (<5.7) Vitamin B12 Level 542 pg/mL (211-911) Thyroid Stimulating Hormone (TSH) 1.58 uIU/mL (0.55-4.78) Urine Color Light-yellow (Yellow) Urine Clarity Clear (Clear) Urine pH 5.5 (5.0-9.0) Urine Specific [place] 1.036 (1.001-1.035) Urine Protein Negative (Negative) Urine Ketones Negative (Negative) Urine Blood Negative /uL (Negative) Urine Nitrite Negative (Negative) Urine Bilirubin Negative (Negative) Urine Urobilinogen Normal mg/dL (Negative) Urine Leukocyte Esterase Negative /uL (Negative) Urine RBC None seen /hpf (0 - 3) Urine Microscopic WBC < 1 /HPF (0-3) Urine Squamous Epithelial Cells None seen /hpf (<5) Urine Bacteria None seen /hpf (None Seen) Urine Glucose 4+ mg/dL (Normal) White Blood Count 11.3 10^3/uL (4.4-10.8) Red Blood Count 4.61 10^6/uL (4.5-5.90) Hemoglobin 13.5 g/dL (13.5-17.5) Hematocrit 40.7 % (41.0-53.0) Mean Corpuscular Volume 88.3 fL (80.0-100.0) Mean Corpuscular Hemoglobin 29.3 pg (28.0-32.0) Mean Corpuscular Hemoglobin Concent 33.2 g/dL (32.0-36.0) Red Cell Distribution Width 13.0 % (11.8-14.3) Platelet Count 331 10^3/uL (140-450) Mean Platelet Volume 9.2 fL (6.9-10.8) Neutrophils (%) (Auto) 68.2 % (37.0-80.0) Lymphocytes (%) (Auto) 21.8 % (10.0-50.0) Monocytes (%) (Auto) 8.8 % (0.0-12.0) Eosinophils (%) (Auto) 0.4 % (0.0-7.0) Basophils (%) (Auto) 0.8 % (0.0-2.0) Neutrophils # (Auto) 7.7 10 ^3/uL (1.6-8.6) Lymphocytes # (Auto) 2.5 10 ^3/uL (0.4-5.4) Monocytes # (Auto) 1.0 10 ^3/uL (0-1.3) Eosinophils # (Auto) 0 10 ^3/uL (0-0.8) Basophils # (Auto) 0.1 10 ^3/uL (0-0.2) Nucleated Red Blood Cells 0.0 % Sodium Level 131 mmol/L (136-145) Potassium Level 4.0 mmol/L (3.5-5.1) Chloride Level 98 mmol/L (98-107) Carbon Dioxide Level 24 mmol/L (20-31) Anion Gap 9 (5-15) Blood Urea Nitrogen 15 mg/dL (9-23) BUN/Creatinine Ratio 11.3 (10.0-20.0) Serum Glucose 434 mg/dL (74-106) Lactic Acid Level 1.9 mmol/L (0.4-2.0) Calcium Level 9.9 mg/dL (8.7-10.4) Total Bilirubin 0.4 mg/dL (0.2-1.0) Aspartate Amino Transferase (AST) 12 U/L (13-40) Alanine Aminotransferase (ALT) 21 U/L (7-40) Alkaline Phosphatase 119 U/L (46-116) C-Reactive Protein High Sensitivity 8.95 mg/dL (<1.0) Total Protein 8.4 g/dL (5.7-8.2) Albumin 4.3 g/dL (3.2-4.8) Other Laboratory Tests 08/18/25 06:42 08/17/25 20:10 Brief Hx & Hospital Course: Final diagnoses: Right hand cellilitis DM2 Homeless 64 year old male came back for worsened infection of his right hand He was here a week ago and left AMA before he completed evaluation and treatment Now his hand has more edema and erythema that spread from the 3rd finger to the wrist We explained to him that he needs IV antibiotics and a surgical consult He left AMA however Condition at Discharge: Undetermined Final Diagnosis/Problems List Right hand cellulitis Discharge Disposition: AMA SNF Discharge Will this Physician continue t: No Discharge Instruct/Medications Scheduled Aspirin (Aspirin Low Dose), 81 MG PO DAILY Atorvastatin Calcium (Lipitor), 1 TAB PO DAILY Lisinopril (Lisinopril), 1 TAB PO DAILY Metformin HCl (Metformin Hydrochloride), 1,000 MG PO BID Metoprolol Succinate (Metoprolol Succinate Er), 1 TAB PO DAILY Scheduled PRN Hydrocodone-Acetaminophen (Hydrocodone Bitartrate/AC 5-325 mg), 1-2 TAB PO Q6HP PRN Durable Medical Equipment Blood Glucose Monitoring Suppl (D-Care Glucometer Kit/Glu W/Device), KIT XX, (DME) Discharge Statement: "Patient was advised to return to the ER or call 911 if any headaches, dizziness, shortness of breath, chest pain, abdominal pain, bleeding, fevers, or worsening of medical condition. Patient was counseled about treatment plan, medications, possible side effects, patientverbalized understanding. All questions were answered to the best of my ability. This discharge took greater then 30 minutes in planning, reviewing documentation, counseling the patient, and discussing with other team members." ASSESSMENT ASSESSMENT Assessment Date of Service: Aug 18, 2025 Billing Provider: JOANN CISNEROS MD Common Visit Codes: NOT BILLABLE JOANN CISNEROS MD Aug 18, 2025 16:00
[2025-08-18] MEDS ORDERED: VANCOMYCIN 750MG KIT 100 ML IV SCH (18:00)
[2025-08-18] MEDS ORDERED: InsuLIN REG 1unit/0.01ml Soln (100units/ml) SC SCH (22:00)
== END 2025-08-18 10:51 | disposition left against medical advice (07) | DRG 603 ==
LOC: ER 19:59 → OVERFLOW 08-18 00:42
PROVIDERS: ADMIT Internal Medicine Geriatric Medicine; ATTEND Internal Medicine Geriatric Medicine
DX: L03.113 Cellulitis of right upper limb (principal); Z59.00 Homelessness unspecified; E11.65 Type 2 diabetes mellitus with hyperglycemia; I12.9 Hypertensive chronic kidney disease with stage 1 through stage 4 chronic kidney disease, or unspecified chronic kidney disease; F19.10 Other psychoactive substance abuse, uncomplicated; N18.9 Chronic kidney disease, unspecified; E78.5 Hyperlipidemia, unspecified; E11.22 Type 2 diabetes mellitus with diabetic chronic kidney disease; Z53.29 Procedure and treatment not carried out because of patient's decision for other reasons; F17.210 Nicotine dependence, cigarettes, uncomplicated; K59.00 Constipation, unspecified; F12.10 Cannabis abuse, uncomplicated; Z91.148 Patient's other noncompliance with medication regimen for other reason; Z91.041 Radiographic dye allergy status; Z79.899 Other long term (current) drug therapy
CPT/HCPCS: 36415; 73130; 80053; 81001; 82306; 82565; 82607; 82962; 83036; 83605; 84443; 85025; 86141; 87040; 96361; 96365; 96367; 99291; G0378; J1815; J2543